=== PATIENT | female | born 1940 | race African-American/Black ===

== ENCOUNTER 2020-12-16 13:22 | Inpatient (IN) | payer MEDICARE, MEDICAID ==
[2020-12-16] MEDS ORDERED: Atropine Sulfate 1 mg/10 ml Syringe ONE (13:36)
[2020-12-16 14:12] LABS: #Eosinphils 0.1 10x3/uL (0.0-0.5); #Monocytes 0.6 10x3/uL (0.0-1.1); #Neutrophils 5.4 10x3/uL (1.5-8.4); %Basophils 0.3 % (0.0-2.0); %Eosinophils 0.9 % (0.0-6.0); %Lymphocytes 7.9 % (18.0-47.0); %Monocytes 8.7 % (0.0-10.0); %Neutrophils 81.6 % (40.0-75.0); Hemoglobin 9.6 g/dL (12.0-15.5); Mean Corpuscular HGB CONC 32.1 g/dL (32.0-36.0); Mean Corpuscular Hemoglobin 24.2 pg (27.0-33.0); Mean Corpuscular Volume 75.5 fl (81.6-98.3); Mean Platelet Volume 10.5 fl (7.4-10.4); Platelet Count 204 10x3/uL (150-450); Red Blood Cell (RBC) Count 3.96 10x6/uL (3.90-5.03); White Blood Cell (WBC) Count 6.6 10x3/uL (3.5-10.5)
[2020-12-16 14:27] LABS: ALT (SGPT) 47 U/L (8-55); AST (SGOT) 29 U/L (5-34); Albumin 3.5 g/dL (3.4-4.8); Alkaline Phosphatase 63 U/L (40-110); Anion Gap 17 mmol/L (10-20); BUN (Urea Nitrogen) 17 mg/dL (9.8-20.1); Bilirubin, Total 0.6 mg/dL (0.2-1.2); Calc. Creatinine Clearance 0 mL/min (70-130); Calcium 9.1 mg/dL (7.8-10.44); Carbon Dioxide 22 mmol/L (23-31); Chloride 103 mmol/L (98-107); Globulin 3.1 g/dL (2.4-3.5); Glucose 249 mg/dL (83-110); Protein, Total 6.6 g/dL (5.8-8.1); Sodium 137 mmol/L (136-145)
[2020-12-16] MEDS ORDERED: Dextrose 5% in Water 1,000 ML IV PRN (16:00)
[2020-12-16] MEDS ORDERED: Dextrose 50% Abboject 50 ML SYRINGE SLOW IVP PRN (16:00)
[2020-12-16] MEDS ORDERED: Ondansetron PF 4 MG/2 ML Vial IVP PRN (16:05)
[2020-12-16] MEDS ORDERED: HumaLOG 300 UNITS/3 ML VIAL SC PRN (16:05)
[2020-12-16] MEDS ORDERED: Acetaminophen 325 MG TAB PO PRN (16:05)
[2020-12-16] MEDS ORDERED: Insulin Regular 300 UNITS/3 ML VIAL SC PRN (16:05)
[2020-12-16] MEDS ORDERED: Latanoprost 0.005% Ophth Soln 2.5 ml Bottle EA EYE SCH (21:00)
[2020-12-16] MEDS: Gabapentin 300 MG CAP PO SCH (22:09)
[2020-12-16] MEDS: Apixaban 2.5 MG TAB PO SCH (22:09)
[2020-12-16] MEDS: TICAGRELOR 90 MG TABLET PO SCH (22:10)
[2020-12-16] MEDS: Latanoprost 0.005% Ophth Soln 2.5 ml Bottle EA EYE SCH (22:18)
[2020-12-17 04:44] VITALS: BMI 31.9
[2020-12-17 05:23] LABS: #Eosinphils 0.2 10x3/uL (0.0-0.5); #Monocytes 1.1 10x3/uL (0.0-1.1); #Neutrophils 5.5 10x3/uL (1.5-8.4); %Basophils 0.3 % (0.0-2.0); %Eosinophils 2.5 % (0.0-6.0); %Lymphocytes 10.9 % (18.0-47.0); %Monocytes 14.5 % (0.0-10.0); %Neutrophils 71.2 % (40.0-75.0); Hemoglobin 8.9 g/dL (12.0-15.5); Mean Corpuscular Hemoglobin 24.1 pg (27.0-33.0); Mean Corpuscular Volume 75.3 fl (81.6-98.3); Mean Platelet Volume 10.6 fl (7.4-10.4); Platelet Count 187 10x3/uL (150-450); RBC Distribution Width 18.1 % (11.5-14.5); Red Blood Cell (RBC) Count 3.69 10x6/uL (3.90-5.03); White Blood Cell (WBC) Count 7.7 10x3/uL (3.5-10.5)
[2020-12-17 05:31] LABS: Anion Gap 14 mmol/L (10-20); BUN (Urea Nitrogen) 15 mg/dL (9.8-20.1); Calc. Creatinine Clearance 60 mL/min (70-130); Calcium 9.3 mg/dL (7.8-10.44); Carbon Dioxide 26 mmol/L (23-31); Chloride 104 mmol/L (98-107); Glucose 112 mg/dL (83-110); Sodium 140 mmol/L (136-145)
[2020-12-17] MEDS: Levothyroxine Sodium 125 MCG TAB PO SCH (06:11)
[2020-12-17] MEDS: Pioglitazone HCl 45 MG TAB PO SCH (08:22)
[2020-12-17] MEDS: Gabapentin 300 MG CAP PO SCH ×2 (08:22→20:47)
[2020-12-17] MEDS: Aspirin 81 mg Enteric Coated Tablet PO SCH (08:22)
[2020-12-17] MEDS: Cholecalciferol 1,000 UNITS (25 MCG) TAB PO SCH (08:23)
[2020-12-17] MEDS: Atorvastatin Calcium 40 MG TAB PO SCH (08:23)
[2020-12-17] MEDS: Oxybutynin ER 5 MG TAB PO SCH (08:23)
[2020-12-17] MEDS: TICAGRELOR 90 MG TABLET PO SCH ×2 (08:23→20:49)
[2020-12-17] MEDS: Amlodipine 10 MG TAB PO SCH (08:23)
[2020-12-17] MEDS: Apixaban 2.5 MG TAB PO SCH ×2 (08:23→20:49)
[2020-12-17] MEDS: Furosemide 40 MG TAB PO SCH (08:23)
[2020-12-17] MEDS: Potassium Chloride 20 MEQ TAB PO SCH (08:23)
[2020-12-17] MEDS ORDERED: CYANOCOBALAMIN 250 MCG PO SCH (09:00)
[2020-12-17] MEDS: Mometasone/Formoterol 200/5 60 PUFF INH SCH ×2 (09:43→19:46)
[2020-12-17 15:16] LABS: SARS-CoV-2 PCR by NAA Not Detected (NotDetected)
[2020-12-17] MEDS: Latanoprost 0.005% Ophth Soln 2.5 ml Bottle EA EYE SCH (21:40)
[2020-12-18 04:38] LABS: Hemoglobin 9.4 g/dL (12.0-15.5); Mean Corpuscular HGB CONC 32.4 g/dL (32.0-36.0); Mean Corpuscular Hemoglobin 24.2 pg (27.0-33.0); Mean Corpuscular Volume 74.6 fl (81.6-98.3); Mean Platelet Volume 10.5 fl (7.4-10.4); Platelet Count 185 10x3/uL (150-450); RBC Distribution Width 17.8 % (11.5-14.5); Red Blood Cell (RBC) Count 3.89 10x6/uL (3.90-5.03); White Blood Cell (WBC) Count 6.5 10x3/uL (3.5-10.5)
[2020-12-18] MEDS: Levothyroxine Sodium 125 MCG TAB PO SCH (05:36)
[2020-12-18 07:41] LABS: Band 2 % (5-11); Eosinophils 5 % (0-10); Lymphocytes 14 % (21-51); Monocytes 13 % (0-10); Myelocyte 1 % (0-0)
[2020-12-18 07:44] LABS: Anisocytosis SLIGHT = 6-15 cells (100X) (0-5/hpf); Neutrophil 65 % (42-75)
[2020-12-18 07:45] LABS: Microcytosis SLIGHT = 6-15 cells (100X) (0-5/hpf); Polychromasia SLIGHT = 2-3 cells (100X) (0-2/hpf); Target Cells MODERATE= 6-15 cells (100X) (0-1/hpf)
[2020-12-18 07:46] LABS: Large Platelets MODERATE; Platelet Clumps SLIGHT; Platelet Morphology Comment Appears Adequate
[2020-12-18] MEDS: Mometasone/Formoterol 200/5 60 PUFF INH SCH ×2 (07:47→19:25)
[2020-12-18 07:48] LABS: MDiff Complete? YES; Manual Diff?? YES
[2020-12-18] MEDS: Oxybutynin ER 5 MG TAB PO SCH (08:58)
[2020-12-18] MEDS: Potassium Chloride 20 MEQ TAB PO SCH (08:58)
[2020-12-18] MEDS: TICAGRELOR 90 MG TABLET PO SCH ×2 (08:58→21:30)
[2020-12-18] MEDS: Gabapentin 300 MG CAP PO SCH ×2 (08:58→21:31)
[2020-12-18] MEDS: Furosemide 40 MG TAB PO SCH (08:58)
[2020-12-18] MEDS: Cholecalciferol 1,000 UNITS (25 MCG) TAB PO SCH (08:58)
[2020-12-18] MEDS: Amlodipine 10 MG TAB PO SCH (08:59)
[2020-12-18] MEDS: Atorvastatin Calcium 40 MG TAB PO SCH (08:59)
[2020-12-18] MEDS: Pioglitazone HCl 45 MG TAB PO SCH (08:59)
[2020-12-18] MEDS: Apixaban 2.5 MG TAB PO SCH ×2 (08:59→21:31)
[2020-12-18] MEDS: Aspirin 81 mg Enteric Coated Tablet PO SCH (08:59)
[2020-12-18] MEDS: Latanoprost 0.005% Ophth Soln 2.5 ml Bottle EA EYE SCH (21:32)
[2020-12-19] MEDS: Levothyroxine Sodium 125 MCG TAB PO SCH (05:08)
[2020-12-19] MEDS: Mometasone/Formoterol 200/5 60 PUFF INH SCH ×2 (07:35→20:25)
[2020-12-19] MEDS: Atorvastatin Calcium 40 MG TAB PO SCH (08:32)
[2020-12-19] MEDS: Aspirin 81 mg Enteric Coated Tablet PO SCH (08:32)
[2020-12-19] MEDS: TICAGRELOR 90 MG TABLET PO SCH ×2 (08:32→21:04)
[2020-12-19] MEDS: Furosemide 40 MG TAB PO SCH (08:33)
[2020-12-19] MEDS: Amlodipine 10 MG TAB PO SCH (08:33)
[2020-12-19] MEDS: Potassium Chloride 20 MEQ TAB PO SCH (08:33)
[2020-12-19] MEDS: Pioglitazone HCl 45 MG TAB PO SCH (08:33)
[2020-12-19] MEDS: Oxybutynin ER 5 MG TAB PO SCH (08:33)
[2020-12-19] MEDS: Apixaban 2.5 MG TAB PO SCH ×2 (08:33→21:04)
[2020-12-19] MEDS: Cholecalciferol 1,000 UNITS (25 MCG) TAB PO SCH (08:33)
[2020-12-19] MEDS: Gabapentin 300 MG CAP PO SCH ×2 (08:33→21:04)
[2020-12-20] MEDS: Latanoprost 0.005% Ophth Soln 2.5 ml Bottle EA EYE SCH ×2 (01:50→22:54)
[2020-12-20] MEDS: Levothyroxine Sodium 125 MCG TAB PO SCH (05:55)
[2020-12-20] MEDS: Nitroglycerin 0.4 MG TAB (25 Tab Bottle) SL PRN ×3 (06:20→06:44)
[2020-12-20 06:32] LABS: Anion Gap 15 mmol/L (10-20); BUN (Urea Nitrogen) 11 mg/dL (9.8-20.1); Calc. Creatinine Clearance 78 mL/min (70-130); Carbon Dioxide 29 mmol/L (23-31); Chloride 102 mmol/L (98-107); Hemoglobin 9.1 g/dL (12.0-15.5); Magnesium 1.4 mg/dL (1.6-2.6); Mean Corpuscular Hemoglobin 24.2 pg (27.0-33.0); Mean Corpuscular Volume 75.5 fl (81.6-98.3); Mean Platelet Volume 10.9 fl (7.4-10.4); Platelet Count 206 10x3/uL (150-450); Potassium 3.6 mmol/L (3.5-5.1); Red Blood Cell (RBC) Count 3.76 10x6/uL (3.90-5.03); Sodium 142 mmol/L (136-145); White Blood Cell (WBC) Count 7.2 10x3/uL (3.5-10.5)
[2020-12-20] MEDS ORDERED: Nitroglycerin 2% Ointment 1 INCH/1 GM Packet TOP SCH (07:00)
[2020-12-20] MEDS ORDERED: Morphine 2 MG/ML VIAL SLOW IVP SCH (07:00)
[2020-12-20 07:55] LABS: Band 1 % (5-11); Eosinophils 4 % (0-10); Lymphocytes 11 % (21-51); Monocytes 4 % (0-10); Neutrophil 77 % (42-75); Reactive Lymphocytes 2 % (0-10)
[2020-12-20 07:56] LABS: Anisocytosis SLIGHT = 6-15 cells (100X) (0-5/hpf); Hypochromia MODERATE=16-30 cells (100X) (0-5/hpf); Microcytosis MODERATE=15-30 cells (100X) (0-5/hpf)
[2020-12-20 07:57] LABS: Large Platelets SLIGHT; Platelet Clumps SLIGHT; Platelet Morphology Comment Appears Adequate
[2020-12-20 07:59] LABS: MDiff Complete? YES; Manual Diff?? YES
[2020-12-20 08:00] LABS: Target Cells MODERATE= 6-15 cells (100X) (0-1/hpf)
[2020-12-20] MEDS ORDERED: Magnesium 2 GM/50 ML 2 GM in Premix Bag 1 BAG IVPB SCH (08:00)
[2020-12-20 08:01] LABS: Polychromasia SLIGHT = 2-3 cells (100X) (0-2/hpf)
[2020-12-20] MEDS: Mometasone/Formoterol 200/5 60 PUFF INH SCH ×2 (08:58→20:35)
[2020-12-20] MEDS ORDERED: Carvedilol 6.25 MG TAB PO SCH (09:00)
[2020-12-20 09:08] LABS: Glucose 115 mg/dL (83-110)
[2020-12-20] MEDS: Apixaban 2.5 MG TAB PO SCH ×2 (09:52→22:44)
[2020-12-20] MEDS: Atorvastatin Calcium 40 MG TAB PO SCH (09:52)
[2020-12-20] MEDS: Gabapentin 300 MG CAP PO SCH ×2 (09:53→22:43)
[2020-12-20] MEDS: TICAGRELOR 90 MG TABLET PO SCH ×2 (09:53→22:45)
[2020-12-20] MEDS: Amlodipine 10 MG TAB PO SCH (09:53)
[2020-12-20] MEDS: Cholecalciferol 1,000 UNITS (25 MCG) TAB PO SCH (09:53)
[2020-12-20] MEDS: Furosemide 40 MG TAB PO SCH (09:53)
[2020-12-20] MEDS: Oxybutynin ER 5 MG TAB PO SCH (09:53)
[2020-12-20] MEDS: Potassium Chloride 20 MEQ TAB PO SCH (09:54)
[2020-12-20] MEDS: Pioglitazone HCl 45 MG TAB PO SCH (09:54)
[2020-12-20] MEDS: Aspirin 81 mg Enteric Coated Tablet PO SCH (09:55)
[2020-12-20] MEDS: Carvedilol 6.25 MG TAB PO SCH (17:24)
[2020-12-21] MEDS: Levothyroxine Sodium 125 MCG TAB PO SCH (06:32)
[2020-12-21] MEDS: Mometasone/Formoterol 200/5 60 PUFF INH SCH (07:18)
[2020-12-21] MEDS: Carvedilol 6.25 MG TAB PO SCH (08:27)
[2020-12-21] MEDS: Cholecalciferol 1,000 UNITS (25 MCG) TAB PO SCH (08:27)
[2020-12-21] MEDS: Atorvastatin Calcium 40 MG TAB PO SCH (08:27)
[2020-12-21] MEDS: Gabapentin 300 MG CAP PO SCH (08:27)
[2020-12-21] MEDS: Potassium Chloride 20 MEQ TAB PO SCH (08:28)
[2020-12-21] MEDS: Amlodipine 10 MG TAB PO SCH (08:28)
[2020-12-21] MEDS: Apixaban 2.5 MG TAB PO SCH (08:28)
[2020-12-21] MEDS: Furosemide 40 MG TAB PO SCH (08:28)
[2020-12-21] MEDS: Oxybutynin ER 5 MG TAB PO SCH (08:28)
[2020-12-21] MEDS: Aspirin 81 mg Enteric Coated Tablet PO SCH (08:28)
[2020-12-21] MEDS: TICAGRELOR 90 MG TABLET PO SCH (08:28)
[2020-12-21] MEDS: Pioglitazone HCl 45 MG TAB PO SCH (08:29)
[2020-12-21 12:10] VITALS: BP 129/73; TEMP 98.6
== END 2020-12-21 14:58 | DRG 309 ==
LOC: CSHERS 13:22 → OBSVTOIN 18:59 → INTOOBSV 18:59 → CSHTELE 18:59 → UNDOADMIN 18:59 → CSHTELE 12-17 19:08 → UNDODISIN 12-21 14:58
PROVIDERS: ADMIT Student in an Organized Health Care Education/Training Program; ATTEND Family Medicine
DX: R00.1 Bradycardia, unspecified (principal); I50.32 Chronic diastolic (congestive) heart failure; Z20.822 Contact with and (suspected) exposure to COVID-19; T46.2X5A Adverse effect of other antidysrhythmic drugs, initial encounter; I48.11 Longstanding persistent atrial fibrillation; I25.10 Atherosclerotic heart disease of native coronary artery without angina pectoris; I42.9 Cardiomyopathy, unspecified; J44.9 Chronic obstructive pulmonary disease, unspecified; E78.5 Hyperlipidemia, unspecified; Z95.5 Presence of coronary angioplasty implant and graft; I11.0 Hypertensive heart disease with heart failure; E11.9 Type 2 diabetes mellitus without complications; K21.9 Gastro-esophageal reflux disease without esophagitis; E03.9 Hypothyroidism, unspecified; Z87.891 Personal history of nicotine dependence; Z90.710 Acquired absence of both cervix and uterus; Z79.01 Long term (current) use of anticoagulants; Z79.84 Long term (current) use of oral hypoglycemic drugs; Z79.82 Long term (current) use of aspirin; Z79.890 Hormone replacement therapy; Z79.899 Other long term (current) drug therapy; Z48.812 Encounter for surgical aftercare following surgery on the circulatory system
CPT/HCPCS: 36415; 36416; 70450; 80048; 80053; 82962; 83735; 84484; 85025; 93005; 93010; 93798; 94664; 94760; G0378; J0461; J1815; J2270; J3475; U0003; U0005

== ENCOUNTER 2021-02-14 14:04 | Inpatient (IN) | payer MEDICARE, MEDICAID ==
[2021-02-14 14:50] LABS: #Eosinphils 0.1 10x3/uL (0.0-0.5); #Neutrophils 7.5 10x3/uL (1.5-8.4); %Basophils 0.3 % (0.0-2.0); %Eosinophils 0.6 % (0.0-6.0); %Lymphocytes 7.5 % (18.0-47.0); %Monocytes 10.8 % (0.0-10.0); %Neutrophils 79.5 % (40.0-75.0); Hemoglobin 9.3 g/dL (12.0-15.5); Mean Corpuscular HGB CONC 31.8 g/dL (32.0-36.0); Mean Corpuscular Hemoglobin 22.2 pg (27.0-33.0); Mean Corpuscular Volume 69.9 fl (81.6-98.3); Platelet Count 160 10x3/uL (150-450); RBC Distribution Width 21.9 % (11.5-14.5); Red Blood Cell (RBC) Count 4.18 10x6/uL (3.90-5.03); White Blood Cell (WBC) Count 9.5 10x3/uL (3.5-10.5)
[2021-02-14] MEDS ORDERED: Diltiazem 125 MG/25 ML ONE (14:59)
[2021-02-14 15:00] LABS: INR-International Normal Ratio 1.7; PTT 29.1 sec (22.0-33.0); Prothrombin Time 18.5 sec (9.5-12.1)
[2021-02-14 15:05] LABS: ALT (SGPT) 67 U/L (8-55); AST (SGOT) 106 U/L (5-34); Albumin 3.9 g/dL (3.4-4.8); Alkaline Phosphatase 109 U/L (40-110); Anion Gap 22 mmol/L (10-20); BUN (Urea Nitrogen) 33 mg/dL (9.8-20.1); Bilirubin, Total 1.4 mg/dL (0.2-1.2); CK (CPK) 61 U/L (29-168); Calc. Creatinine Clearance 0 mL/min (70-130); Calcium 9.3 mg/dL (7.8-10.44); Carbon Dioxide 20 mmol/L (23-31); Chloride 99 mmol/L (98-107); Globulin 4.2 g/dL (2.4-3.5); Glucose 200 mg/dL (83-110); Potassium 4.7 mmol/L (3.5-5.1); Protein, Total 8.1 g/dL (5.8-8.1); Sodium 136 mmol/L (136-145)
[2021-02-14 16:05] LABS: Giant Platelets SLIGHT; Large Platelets SLIGHT; Platelet Morphology Comment Appears Adequate
[2021-02-14 16:07] LABS: Anisocytosis SLIGHT = 6-15 cells (100X) (0-5/hpf); Elliptocytes SLIGHT = 2-5 cells (100X) (0-1/hpf); Hypochromia SLIGHT = 6-15 cells (100X) (0-5/hpf); Macrocytosis SLIGHT = 6-15 cells (100X) (0-5/hpf); Microcytosis SLIGHT = 6-15 cells (100X) (0-5/hpf); Polychromasia SLIGHT = 2-3 cells (100X) (0-2/hpf); Schistocytes SLIGHT = 2-5 cells (100X) (0-1/hpf); Target Cells SLIGHT = 2-5 cells (100X) (0-1/hpf)
[2021-02-14 16:42] LABS: SARS-CoV-2 NAA Rapid Test Not Detected (NotDetected)
[2021-02-14 17:52] LABS: Troponin I Less than 0.010 ng/mL (< 0.028)
[2021-02-14] MEDS ORDERED: Furosemide 40 MG/4 ML VIAL ONE (19:17)
[2021-02-14] MEDS ORDERED: Dextrose 50% Abboject 50 ML SYRINGE SLOW IVP PRN (19:18)
[2021-02-14] MEDS ORDERED: Guaifenesin DM 100-10/5 ML UDCUP PO PRN (19:18)
[2021-02-14] MEDS ORDERED: Senokot S 8.6-50 MG TAB PO PRN (19:18)
[2021-02-14] MEDS ORDERED: Dextrose 5% in Water 1,000 ML IV PRN (19:18)
[2021-02-14] MEDS ORDERED: Ondansetron PF 4 MG/2 ML Vial IVP PRN (19:18)
[2021-02-14] MEDS ORDERED: Calcium Carbonate 500 MG ChewTAB PO PRN (19:18)
[2021-02-14] MEDS ORDERED: Acetaminophen 325 MG TAB PO PRN (19:18)
[2021-02-14 21:03] LABS: Troponin I 0.011 ng/mL (< 0.028)
[2021-02-14 21:55] VITALS: BMI 33.0
[2021-02-14] MEDS ORDERED: methylPREDNISolone Sod Succ/PF 125 MG/2 ML VIAL IVP SCH (22:00)
[2021-02-14] MEDS ORDERED: Digoxin 0.5 MG/2 ML AMP SLOW IVP SCH (22:00)
[2021-02-14] MEDS ORDERED: Apixaban 2.5 MG TAB PO SCH (22:15)
[2021-02-14] MEDS ORDERED: TICAGRELOR 90 MG TABLET PO SCH (22:15)
[2021-02-14] MEDS ORDERED: Famotidine 20 MG TAB PO SCH (22:15)
[2021-02-14] MEDS: HumaLOG 300 UNITS/3 ML VIAL SC PRN (23:40)
[2021-02-15] MEDS: diphenhydrAMINE 25 MG CAP PO PRN ×3 (00:43→11:23)
[2021-02-15] MEDS: Diltiazem 125 MG, Admixture Fee 1 EACH in Sodium Chloride 0.9% 100 ML IVPB SCH ×2 (01:04→10:47)
[2021-02-15] MEDS: Levothyroxine Sodium 125 MCG TAB PO SCH (05:24)
[2021-02-15] MEDS ORDERED: Furosemide 40 MG/4 ML VIAL SLOW IVP SCH ×2 (06:00→14:00)
[2021-02-15] MEDS: HumaLOG 300 UNITS/3 ML VIAL SC PRN (06:01)
[2021-02-15] MEDS: Mometasone/Formoterol 200/5 60 PUFF INH SCH (07:00)
[2021-02-15] MEDS: Fish Oil 1,000 MG CAP PO SCH (08:05)
[2021-02-15] MEDS: Oxybutynin ER 5 MG TAB PO SCH (08:05)
[2021-02-15] MEDS: Famotidine 20 MG TAB PO SCH ×2 (08:06→20:17)
[2021-02-15] MEDS: Aspirin 81 mg Enteric Coated Tablet PO SCH (08:06)
[2021-02-15] MEDS: Cyanocobalamin (Vitamin B-12) 1,000 MCG TAB PO SCH (08:06)
[2021-02-15] MEDS: Multivitamin W/ Minerals 1 TAB PO SCH (08:06)
[2021-02-15] MEDS: Cholecalciferol 1,000 UNITS (25 MCG) TAB PO SCH (08:06)
[2021-02-15] MEDS: Alogliptin 25 MG TAB PO SCH (08:08)
[2021-02-15] MEDS: Apixaban 2.5 MG TAB PO SCH ×2 (08:14→20:17)
[2021-02-15] MEDS: TICAGRELOR 90 MG TABLET PO SCH ×2 (08:14→20:17)
[2021-02-15 08:23] LABS: Anion Gap 28 mmol/L (10-20); BUN (Urea Nitrogen) 46 mg/dL (9.8-20.1); Calc. Creatinine Clearance 30 mL/min (70-130); Calcium 9.2 mg/dL (7.8-10.44); Carbon Dioxide 12 mmol/L (23-31); Chloride 98 mmol/L (98-107); Glucose 166 mg/dL (83-110); Iron 31 ug/dL (50-170); Iron Binding Capacity, Total 363 mcg/dL (265-497); Magnesium 1.9 mg/dL (1.6-2.6); Potassium 5.4 mmol/L (3.5-5.1); Sodium 133 mmol/L (136-145)
[2021-02-15] MEDS: Stress 600 With Zinc 1 TAB PO SCH (08:59)
[2021-02-15] MEDS ORDERED: CYANOCOBALAMIN 250 MCG PO SCH (09:00)
[2021-02-15] MEDS ORDERED: FISH OIL PO SCH (09:00)
[2021-02-15] MEDS ORDERED: OMEGA PO SCH (09:00)
[2021-02-15] MEDS ORDERED: EPA PO SCH (09:00)
[2021-02-15] MEDS ORDERED: DHA PO SCH (09:00)
[2021-02-15] MEDS ORDERED: Atorvastatin Calcium 40 MG TAB PO SCH (09:00)
[2021-02-15] MEDS ORDERED: [UNRECOGNIZED DRUG - OTHER] PO SCH (09:00)
[2021-02-15] MEDS ORDERED: Carvedilol 3.125 MG TAB PO SCH (10:00)
[2021-02-15 14:26] LABS: Bilirubin 1+ (Negative); Blood, Urine 250 (Negative); Clarity Cloudy (Clear); Glucose, Urine (Dipstick) Normal (Negative); Ketone, Urine 5 mg/dL (Negative); Leukocyte 100 (Negative); Nitrite Positive (Negative); Protein, Urine (Dipstick) 100 mg/dl (Neg-Trace); Specific Gravity, Urine 1.025 (1.002-1.036)
[2021-02-15 14:36] LABS: RBC/HPF Greater than 50 HPF (0-3)
[2021-02-15 14:38] LABS: Squamous Epithelial 0-3 HPF (0-3); Transitional Epithelial 0-3 HPF (None Seen)
[2021-02-15 14:39] LABS: Bacteria/HPF 2+ HPF (None Seen); Mucous/LPF 1+ LPF (<2+); Oval Fat Bodies/HPF Rare HPF (None Seen); Renal Epithelial 0-3 HPF (None Seen)
[2021-02-15 14:40] LABS: Red Blood Cell Cast 0-3 LPF (None Seen)
[2021-02-15 14:41] LABS: Calcium Oxalate Crystals 1+ HPF (None Seen)
[2021-02-15 18:34] LABS: Hep B Surf Ag Non-Reactive S/CO (NonReactive)
[2021-02-15 18:40] LABS: HBSAg Index 0.48 S/CO (0-0.99)
[2021-02-15] MEDS: Carvedilol 3.125 MG TAB PO SCH (19:47)
[2021-02-15 19:58] LABS: Lactic Acid 9.3 mmol/L (0.5-2.2)
[2021-02-15] MEDS: cefTRIAXone\\ROCEPHIN 2 GM in Sodium Chloride 0.9% 100 ML IVPB SCH (20:29)
[2021-02-15] MEDS: Latanoprost 0.005% Ophth Soln 2.5 ml Bottle EA EYE SCH (20:29)
[2021-02-15 23:48] LABS: HBSAB Concentration Less than 8.00 mIU/mL; Hep B Core Total Ab Non-Reactive (NonReactive); Hep B Core Total Index 0.13 S/CO (0-0.79); Hep B Surf AB Non-Reactive (NonReactive); Hep C IgG Ab Non-Reactive (NonReactive); Hep C Index 0.12 S/CO (0-0.79)
[2021-02-16 04:34] LABS: Anion Gap 22 mmol/L (10-20); BUN (Urea Nitrogen) 45 mg/dL (9.8-20.1); Calc. Creatinine Clearance 31 mL/min (70-130); Carbon Dioxide 20 mmol/L (23-31); Chloride 96 mmol/L (98-107); Glucose 168 mg/dL (83-110); Potassium 4.2 mmol/L (3.5-5.1); Sodium 134 mmol/L (136-145)
[2021-02-16] MEDS: Levothyroxine Sodium 125 MCG TAB PO SCH (05:06)
[2021-02-16] MEDS: Mometasone/Formoterol 200/5 60 PUFF INH SCH ×2 (06:35→19:13)
[2021-02-16] MEDS: HumaLOG 300 UNITS/3 ML VIAL SC PRN ×3 (06:42→21:11)
[2021-02-16 06:46] LABS: #Monocytes 1.1 10x3/uL (0.0-1.1); #Neutrophils 11.1 10x3/uL (1.5-8.4); %Basophils 0.2 % (0.0-2.0); %Lymphocytes 4.4 % (18.0-47.0); %Monocytes 8.7 % (0.0-10.0); %Neutrophils 85.5 % (40.0-75.0); Hemoglobin 8.3 g/dL (12.0-15.5); Mean Corpuscular HGB CONC 32.9 g/dL (32.0-36.0); Mean Corpuscular Hemoglobin 22.9 pg (27.0-33.0); Mean Corpuscular Volume 69.6 fl (81.6-98.3); Platelet Count 136 10x3/uL (150-450); RBC Distribution Width 21.7 % (11.5-14.5); Red Blood Cell (RBC) Count 3.62 10x6/uL (3.90-5.03)
[2021-02-16 06:47] LABS: Hypochromia SLIGHT = 6-15 cells (100X) (0-5/hpf); Microcytosis SLIGHT = 6-15 cells (100X) (0-5/hpf); Platelet Morphology Comment Appears Adequate; Polychromasia SLIGHT = 2-3 cells (100X) (0-2/hpf); RBC Morphology Normal
[2021-02-16] MEDS: Diltiazem 125 MG, Admixture Fee 1 EACH in Sodium Chloride 0.9% 100 ML IVPB SCH (10:00)
[2021-02-16] MEDS: Famotidine 20 MG TAB PO SCH ×2 (10:04→20:49)
[2021-02-16] MEDS: Fish Oil 1,000 MG CAP PO SCH (10:04)
[2021-02-16] MEDS: Cyanocobalamin (Vitamin B-12) 1,000 MCG TAB PO SCH (10:04)
[2021-02-16] MEDS: Oxybutynin ER 5 MG TAB PO SCH (10:05)
[2021-02-16] MEDS: Aspirin 81 mg Enteric Coated Tablet PO SCH (10:05)
[2021-02-16] MEDS: Stress 600 With Zinc 1 TAB PO SCH (10:05)
[2021-02-16] MEDS: TICAGRELOR 90 MG TABLET PO SCH ×2 (10:05→20:50)
[2021-02-16] MEDS: Cholecalciferol 1,000 UNITS (25 MCG) TAB PO SCH (10:06)
[2021-02-16] MEDS: Alogliptin 25 MG TAB PO SCH (10:06)
[2021-02-16] MEDS: Apixaban 2.5 MG TAB PO SCH ×2 (10:06→20:50)
[2021-02-16] MEDS: Multivitamin W/ Minerals 1 TAB PO SCH (10:07)
[2021-02-16] MEDS: Carvedilol 3.125 MG TAB PO SCH ×2 (10:07→16:39)
[2021-02-16 11:10] LABS: ALT (SGPT) 729 U/L (8-55); AST (SGOT) 1605 U/L (5-34); Albumin 3.5 g/dL (3.4-4.8); Alkaline Phosphatase 195 U/L (40-110); Bilirubin, Direct 1.1 mg/dL (0.1-0.3); Bilirubin, Total 1.6 mg/dL (0.2-1.2); Protein, Total 7.4 g/dL (5.8-8.1)
[2021-02-16] MEDS ORDERED: Diltiazem HCl SR 60 mg Capsule PO SCH (13:30)
[2021-02-16] MEDS: cefTRIAXone\\ROCEPHIN 2 GM in Sodium Chloride 0.9% 100 ML IVPB SCH (20:51)
[2021-02-16] MEDS: Latanoprost 0.005% Ophth Soln 2.5 ml Bottle EA EYE SCH (22:35)
[2021-02-17 03:47] LABS: #Monocytes 1.5 10x3/uL (0.0-1.1); #Neutrophils 12.8 10x3/uL (1.5-8.4); %Basophils 0.1 % (0.0-2.0); %Lymphocytes 0.7 % (18.0-47.0); %Monocytes 10.2 % (0.0-10.0); %Neutrophils 87.3 % (40.0-75.0); Hemoglobin 7.3 g/dL (12.0-15.5); Mean Corpuscular HGB CONC 33.3 g/dL (32.0-36.0); Mean Corpuscular Hemoglobin 22.7 pg (27.0-33.0); Mean Corpuscular Volume 68.2 fl (81.6-98.3); Platelet Count 130 10x3/uL (150-450); RBC Distribution Width 21.4 % (11.5-14.5); Red Blood Cell (RBC) Count 3.21 10x6/uL (3.90-5.03); White Blood Cell (WBC) Count 14.6 10x3/uL (3.5-10.5)
[2021-02-17 03:49] LABS: Anion Gap 13 mmol/L (10-20); BUN (Urea Nitrogen) 54 mg/dL (9.8-20.1); CRP (Inflammatory) 2.79 mg/dL (= or < 0.5); Calc. Creatinine Clearance 38 mL/min (70-130); Calcium 8.4 mg/dL (7.8-10.44); Carbon Dioxide 27 mmol/L (23-31); Chloride 98 mmol/L (98-107); Glucose 238 mg/dL (83-110); Potassium 3.9 mmol/L (3.5-5.1); Sodium 134 mmol/L (136-145)
[2021-02-17 04:40] LABS: Hypochromia MARKED = >30 cells (100X) (0-5/hpf); Platelet Morphology Comment Appears Decreased
[2021-02-17] MEDS: Levothyroxine Sodium 125 MCG TAB PO SCH (05:51)
[2021-02-17] MEDS: HumaLOG 300 UNITS/3 ML VIAL SC PRN ×3 (05:56→16:23)
[2021-02-17] MEDS: Mometasone/Formoterol 200/5 60 PUFF INH SCH ×3 (06:00→19:00)
[2021-02-17] MEDS: Oxybutynin ER 5 MG TAB PO SCH (08:33)
[2021-02-17] MEDS: Fish Oil 1,000 MG CAP PO SCH (08:33)
[2021-02-17] MEDS: TICAGRELOR 90 MG TABLET PO SCH ×2 (08:33→20:29)
[2021-02-17] MEDS: Aspirin 81 mg Enteric Coated Tablet PO SCH (08:33)
[2021-02-17] MEDS: Apixaban 2.5 MG TAB PO SCH ×2 (08:33→20:29)
[2021-02-17] MEDS: Carvedilol 3.125 MG TAB PO SCH ×2 (08:33→18:17)
[2021-02-17] MEDS: Cyanocobalamin (Vitamin B-12) 1,000 MCG TAB PO SCH (08:34)
[2021-02-17] MEDS: Alogliptin 25 MG TAB PO SCH (08:34)
[2021-02-17] MEDS: Multivitamin W/ Minerals 1 TAB PO SCH (08:34)
[2021-02-17] MEDS: Famotidine 20 MG TAB PO SCH ×2 (08:35→20:29)
[2021-02-17] MEDS: Stress 600 With Zinc 1 TAB PO SCH (08:35)
[2021-02-17] MEDS: Cholecalciferol 1,000 UNITS (25 MCG) TAB PO SCH (08:35)
[2021-02-17] MEDS ORDERED: Furosemide 40 MG/4 ML VIAL SLOW IVP SCH (09:00)
[2021-02-17] MEDS: cefTRIAXone\\ROCEPHIN 2 GM in Sodium Chloride 0.9% 100 ML IVPB SCH (20:49)
[2021-02-17] MEDS: Latanoprost 0.005% Ophth Soln 2.5 ml Bottle EA EYE SCH (23:35)
[2021-02-18] MEDS: Levothyroxine Sodium 125 MCG TAB PO SCH (05:45)
[2021-02-18 06:43] LABS: Anion Gap 13 mmol/L (10-20); BUN (Urea Nitrogen) 32 mg/dL (9.8-20.1); Calc. Creatinine Clearance 64 mL/min (70-130); Calcium 8.3 mg/dL (7.8-10.44); Carbon Dioxide 32 mmol/L (23-31); Chloride 97 mmol/L (98-107); Glucose 199 mg/dL (83-110); Potassium 3.1 mmol/L (3.5-5.1); Sodium 139 mmol/L (136-145)
[2021-02-18] MEDS: Mometasone/Formoterol 200/5 60 PUFF INH SCH ×2 (07:00→19:40)
[2021-02-18 08:44] LABS: #Eosinphils 0.2 10x3/uL (0.0-0.5); #Monocytes 1.1 10x3/uL (0.0-1.1); #Neutrophils 9.3 10x3/uL (1.5-8.4); %Basophils 0.3 % (0.0-2.0); %Eosinophils 1.7 % (0.0-6.0); %Lymphocytes 5.6 % (18.0-47.0); %Monocytes 9.2 % (0.0-10.0); %Neutrophils 81.2 % (40.0-75.0); Hemoglobin 9.2 g/dL (12.0-15.5); Mean Corpuscular HGB CONC 33.6 g/dL (32.0-36.0); Mean Corpuscular Hemoglobin 24.1 pg (27.0-33.0); Mean Corpuscular Volume 71.7 fl (81.6-98.3); Platelet Count 126 10x3/uL (150-450); RBC Distribution Width 22.6 % (11.5-14.5); Red Blood Cell (RBC) Count 3.82 10x6/uL (3.90-5.03); White Blood Cell (WBC) Count 11.5 10x3/uL (3.5-10.5)
[2021-02-18] MEDS: Alogliptin 25 MG TAB PO SCH (09:22)
[2021-02-18] MEDS: Aspirin 81 mg Enteric Coated Tablet PO SCH (09:22)
[2021-02-18] MEDS: Apixaban 2.5 MG TAB PO SCH ×2 (09:22→20:38)
[2021-02-18] MEDS: Famotidine 20 MG TAB PO SCH ×2 (09:23→20:38)
[2021-02-18] MEDS: Cyanocobalamin (Vitamin B-12) 1,000 MCG TAB PO SCH (09:23)
[2021-02-18] MEDS: Carvedilol 3.125 MG TAB PO SCH ×2 (09:23→17:47)
[2021-02-18] MEDS: Cholecalciferol 1,000 UNITS (25 MCG) TAB PO SCH (09:23)
[2021-02-18] MEDS: Fish Oil 1,000 MG CAP PO SCH (09:23)
[2021-02-18] MEDS: Multivitamin W/ Minerals 1 TAB PO SCH ×2 (09:28→13:00)
[2021-02-18] MEDS: Potassium Chloride 20 MEQ TAB PO SCH ×2 (09:28→20:38)
[2021-02-18] MEDS: Oxybutynin ER 5 MG TAB PO SCH (09:28)
[2021-02-18] MEDS: Furosemide 20 MG TAB PO SCH ×2 (09:28→14:25)
[2021-02-18] MEDS: TICAGRELOR 90 MG TABLET PO SCH ×2 (09:31→20:39)
[2021-02-18] MEDS: Stress 600 With Zinc 1 TAB PO SCH (09:31)
[2021-02-18 13:30] LABS: Anisocytosis SLIGHT = 6-15 cells (100X) (0-5/hpf); Macrocytosis SLIGHT = 6-15 cells (100X) (0-5/hpf); Microcytosis SLIGHT = 6-15 cells (100X) (0-5/hpf); Poikilocytosis SLIGHT = 6-15 cells (100X) (0-5/hpf); Polychromasia SLIGHT = 2-3 cells (100X) (0-2/hpf)
[2021-02-18 13:31] LABS: Platelet Morphology Comment Appears Decreased; Target Cells SLIGHT = 2-5 cells (100X) (0-1/hpf)
[2021-02-18] MEDS: HumaLOG 300 UNITS/3 ML VIAL SC PRN ×2 (14:25→17:54)
[2021-02-18] MEDS: Latanoprost 0.005% Ophth Soln 2.5 ml Bottle EA EYE SCH (20:39)
[2021-02-18] MEDS: cefTRIAXone\\ROCEPHIN 2 GM in Sodium Chloride 0.9% 100 ML IVPB SCH (20:44)
[2021-02-19] MEDS: HumaLOG 300 UNITS/3 ML VIAL SC PRN ×3 (06:00→18:19)
[2021-02-19] MEDS: Levothyroxine Sodium 125 MCG TAB PO SCH (06:42)
[2021-02-19] MEDS: Mometasone/Formoterol 200/5 60 PUFF INH SCH ×2 (07:05→18:52)
[2021-02-19 08:59] LABS: Anion Gap 10 mmol/L (10-20); BUN (Urea Nitrogen) 13 mg/dL (9.8-20.1); Calc. Creatinine Clearance 90 mL/min (70-130); Calcium 7.8 mg/dL (7.8-10.44); Carbon Dioxide 33 mmol/L (23-31); Chloride 96 mmol/L (98-107); Glucose 165 mg/dL (83-110); Magnesium 1.5 mg/dL (1.6-2.6); Potassium 3.1 mmol/L (3.5-5.1); Sodium 136 mmol/L (136-145)
[2021-02-19 09:07] LABS: Phosphorus 1.4 mg/dL (2.3-4.7)
[2021-02-19] MEDS: Oxybutynin ER 5 MG TAB PO SCH (09:51)
[2021-02-19] MEDS: Apixaban 2.5 MG TAB PO SCH ×2 (09:51→20:46)
[2021-02-19] MEDS: Fish Oil 1,000 MG CAP PO SCH (09:51)
[2021-02-19] MEDS: TICAGRELOR 90 MG TABLET PO SCH ×2 (09:51→20:46)
[2021-02-19] MEDS: Cholecalciferol 1,000 UNITS (25 MCG) TAB PO SCH (09:51)
[2021-02-19] MEDS: Cyanocobalamin (Vitamin B-12) 1,000 MCG TAB PO SCH (09:51)
[2021-02-19] MEDS: Famotidine 20 MG TAB PO SCH ×2 (09:51→20:46)
[2021-02-19] MEDS: Alogliptin 25 MG TAB PO SCH (09:51)
[2021-02-19] MEDS: Stress 600 With Zinc 1 TAB PO SCH (09:51)
[2021-02-19] MEDS: Carvedilol 3.125 MG TAB PO SCH ×2 (09:51→16:30)
[2021-02-19] MEDS: Aspirin 81 mg Enteric Coated Tablet PO SCH (09:51)
[2021-02-19 09:53] LABS: #Eosinphils 0.2 10x3/uL (0.0-0.5); #Monocytes 0.9 10x3/uL (0.0-1.1); #Neutrophils 6.8 10x3/uL (1.5-8.4); %Basophils 0.1 % (0.0-2.0); %Eosinophils 2.4 % (0.0-6.0); Hemoglobin 9.7 g/dL (12.0-15.5); Mean Corpuscular HGB CONC 32.8 g/dL (32.0-36.0); Mean Corpuscular Hemoglobin 24.1 pg (27.0-33.0); Mean Corpuscular Volume 73.6 fl (81.6-98.3); Platelet Count 125 10x3/uL (150-450); RBC Distribution Width 23.8 % (11.5-14.5); Red Blood Cell (RBC) Count 4.02 10x6/uL (3.90-5.03); White Blood Cell (WBC) Count 8.7 10x3/uL (3.5-10.5)
[2021-02-19 09:59] LABS: Anion Gap 11 mmol/L (10-20); BUN (Urea Nitrogen) 13 mg/dL (9.8-20.1); Calc. Creatinine Clearance 85 mL/min (70-130); Carbon Dioxide 32 mmol/L (23-31); Chloride 96 mmol/L (98-107); Glucose 178 mg/dL (83-110); Magnesium 1.5 mg/dL (1.6-2.6); Potassium 3.1 mmol/L (3.5-5.1); Sodium 136 mmol/L (136-145)
[2021-02-19 10:00] LABS: Phosphorus 1.4 mg/dL (2.3-4.7)
[2021-02-19] MEDS ORDERED: Potassium Chloride 20 MEQ TAB PO SCH ×2 (10:00→11:45)
[2021-02-19] MEDS ORDERED: PHOS-NAK 1 PKT PACK PO SCH (10:00)
[2021-02-19] MEDS ORDERED: Magnesium 2 GM/50 ML 2 GM in Premix Bag 1 BAG IVPB SCH (10:00)
[2021-02-19 11:42] LABS: ALT (SGPT) 1013 U/L (8-55); AST (SGOT) 862 U/L (5-34); Albumin 2.9 g/dL (3.4-4.8); Alkaline Phosphatase 167 U/L (40-110); Bilirubin, Direct 0.6 mg/dL (0.1-0.3); Bilirubin, Total 1.1 mg/dL (0.2-1.2); Protein, Total 6.3 g/dL (5.8-8.1)
[2021-02-19] MEDS ORDERED: Potassium Phosphate 30 MMOL in Sodium Chloride 0.9% 500 ML IVPB SCH (11:45)
[2021-02-19] MEDS ORDERED: Potassium Chloride 20 MEQ in Premix Bag 1 BAG IVPB SCH (11:45)
[2021-02-19 15:29] LABS: Anion Gap 11 mmol/L (10-20); BUN (Urea Nitrogen) 13 mg/dL (9.8-20.1); Calc. Creatinine Clearance 80 mL/min (70-130); Calcium 7.8 mg/dL (7.8-10.44); Carbon Dioxide 32 mmol/L (23-31); Chloride 96 mmol/L (98-107); Glucose 187 mg/dL (83-110); Potassium 3.7 mmol/L (3.5-5.1); Sodium 135 mmol/L (136-145)
[2021-02-19] MEDS: cefTRIAXone\\ROCEPHIN 2 GM in Sodium Chloride 0.9% 100 ML IVPB SCH (20:45)
[2021-02-19] MEDS: Latanoprost 0.005% Ophth Soln 2.5 ml Bottle EA EYE SCH (20:47)
[2021-02-20 05:14] LABS: Anion Gap 10 mmol/L (10-20); BUN (Urea Nitrogen) 11 mg/dL (9.8-20.1); Calc. Creatinine Clearance 94 mL/min (70-130); Calcium 7.9 mg/dL (7.8-10.44); Carbon Dioxide 30 mmol/L (23-31); Chloride 100 mmol/L (98-107); Glucose 112 mg/dL (83-110); Magnesium 1.9 mg/dL (1.6-2.6); Potassium 3.4 mmol/L (3.5-5.1); Sodium 137 mmol/L (136-145)
[2021-02-20 05:27] LABS: Phosphorus 2.2 mg/dL (2.3-4.7)
[2021-02-20] MEDS: Levothyroxine Sodium 125 MCG TAB PO SCH (06:33)
[2021-02-20] MEDS: Mometasone/Formoterol 200/5 60 PUFF INH SCH ×2 (07:05→19:41)
[2021-02-20] MEDS: Fish Oil 1,000 MG CAP PO SCH (08:12)
[2021-02-20] MEDS: Carvedilol 3.125 MG TAB PO SCH ×2 (08:12→17:31)
[2021-02-20] MEDS: Aspirin 81 mg Enteric Coated Tablet PO SCH (08:12)
[2021-02-20] MEDS: TICAGRELOR 90 MG TABLET PO SCH ×2 (08:12→21:01)
[2021-02-20] MEDS: Oxybutynin ER 5 MG TAB PO SCH (08:12)
[2021-02-20] MEDS: Apixaban 2.5 MG TAB PO SCH ×2 (08:12→20:59)
[2021-02-20] MEDS: Alogliptin 25 MG TAB PO SCH (08:12)
[2021-02-20] MEDS: Famotidine 20 MG TAB PO SCH ×3 (08:12→21:00)
[2021-02-20] MEDS: Stress 600 With Zinc 1 TAB PO SCH (08:13)
[2021-02-20] MEDS: Cholecalciferol 1,000 UNITS (25 MCG) TAB PO SCH (08:13)
[2021-02-20] MEDS: Cyanocobalamin (Vitamin B-12) 1,000 MCG TAB PO SCH (08:13)
[2021-02-20 09:47] LABS: ALT (SGPT) 665 U/L (8-55); AST (SGOT) 341 U/L (5-34); Albumin 2.9 g/dL (3.4-4.8); Alkaline Phosphatase 166 U/L (40-110); Anion Gap 13 mmol/L (10-20); BUN (Urea Nitrogen) 10 mg/dL (9.8-20.1); Bilirubin, Direct 0.5 mg/dL (0.1-0.3); Bilirubin, Total 1.1 mg/dL (0.2-1.2); Calc. Creatinine Clearance 90 mL/min (70-130); Calcium 8.4 mg/dL (7.8-10.44); Carbon Dioxide 28 mmol/L (23-31); Chloride 99 mmol/L (98-107); Glucose 166 mg/dL (83-110); Magnesium 1.8 mg/dL (1.6-2.6); Phosphorus 2.1 mg/dL (2.3-4.7); Potassium 3.8 mmol/L (3.5-5.1); Protein, Total 6.7 g/dL (5.8-8.1); Sodium 136 mmol/L (136-145)
[2021-02-20] MEDS ORDERED: Potassium Phosphate 30 MMOL in Sodium Chloride 0.9% 500 ML IVPB SCH (10:00)
[2021-02-20] MEDS ORDERED: PHOS-NAK 1 PKT PACK PO SCH (11:00)
[2021-02-20] MEDS: HumaLOG 300 UNITS/3 ML VIAL SC PRN ×2 (11:52→17:31)
[2021-02-20 13:40] LABS: Bilirubin Neg (Negative); Blood, Urine 10 (Negative); Clarity Clear (Clear); Glucose, Urine (Dipstick) >=1000 mg/dL (Negative); Ketone, Urine Negative (Negative); Leukocyte Negative (Negative); Nitrite Negative (Negative); Protein, Urine (Dipstick) 15 mg/dl (Neg-Trace)
[2021-02-20 13:46] LABS: Bacteria/HPF None Seen HPF (None Seen); Squamous Epithelial 0-3 HPF (0-3); WBC/HPF 0-3 HPF (0-3)
[2021-02-20] MEDS: cefTRIAXone\\ROCEPHIN 2 GM in Sodium Chloride 0.9% 100 ML IVPB SCH (20:55)
[2021-02-20] MEDS: Latanoprost 0.005% Ophth Soln 2.5 ml Bottle EA EYE SCH (21:01)
[2021-02-21] MEDS: Levothyroxine Sodium 125 MCG TAB PO SCH (06:36)
[2021-02-21] MEDS: Mometasone/Formoterol 200/5 60 PUFF INH SCH (07:25)
[2021-02-21] MEDS ORDERED: Magnesium Oxide 400 MG TAB PO SCH (09:00)
[2021-02-21 09:51] LABS: Anion Gap 12 mmol/L (10-20); BUN (Urea Nitrogen) 7 mg/dL (9.8-20.1); Calc. Creatinine Clearance 94 mL/min (70-130); Calcium 7.9 mg/dL (7.8-10.44); Carbon Dioxide 24 mmol/L (23-31); Chloride 104 mmol/L (98-107); Glucose 150 mg/dL (83-110); Potassium 4.3 mmol/L (3.5-5.1); Sodium 136 mmol/L (136-145)
[2021-02-21] MEDS: Carvedilol 3.125 MG TAB PO SCH (09:58)
[2021-02-21] MEDS: Fish Oil 1,000 MG CAP PO SCH (09:58)
[2021-02-21] MEDS: Stress 600 With Zinc 1 TAB PO SCH (09:58)
[2021-02-21] MEDS: Apixaban 2.5 MG TAB PO SCH (09:59)
[2021-02-21] MEDS: Cyanocobalamin (Vitamin B-12) 1,000 MCG TAB PO SCH (10:00)
[2021-02-21] MEDS: TICAGRELOR 90 MG TABLET PO SCH (10:00)
[2021-02-21] MEDS: Alogliptin 25 MG TAB PO SCH (10:00)
[2021-02-21] MEDS: Cholecalciferol 1,000 UNITS (25 MCG) TAB PO SCH (10:00)
[2021-02-21] MEDS: Oxybutynin ER 5 MG TAB PO SCH (10:05)
[2021-02-21 10:13] LABS: ALT (SGPT) 438 U/L (8-55); AST (SGOT) 171 U/L (5-34); Albumin 2.6 g/dL (3.4-4.8); Alkaline Phosphatase 136 U/L (40-110); Bilirubin, Direct 0.3 mg/dL (0.1-0.3); Bilirubin, Total 0.8 mg/dL (0.2-1.2); Protein, Total 5.9 g/dL (5.8-8.1)
[2021-02-21 12:50] VITALS: TEMP 98.5
[2021-02-21 16:15] LABS: Phosphorus 2.7 mg/dL (2.3-4.7)
[2021-02-21 19:07] VITALS: BP 110/60
[2021-02-21] MEDS ORDERED: Apixaban 5 MG TAB PO SCH ×2 (21:00)
== END 2021-02-21 18:15 | disposition home or self-care (01) | DRG 682 ==
LOC: CSHERS 14:04 → CSHIMCU 21:45 → CSHTELE 02-17 17:54
PROVIDERS: ADMIT Student in an Organized Health Care Education/Training Program; ATTEND Internal Medicine
PROC: 06HY33Z Insertion of Infusion Device into Lower Vein, Percutaneous Approach (ICD-10-PCS; principal; 2021-02-15)
PROC: 5A1D70Z Performance of Urinary Filtration, Intermittent, Less than 6 Hours Per Day (ICD-10-PCS; 2021-02-15)
PROC: 30233N1 Transfusion of Nonautologous Red Blood Cells into Peripheral Vein, Percutaneous Approach (ICD-10-PCS; 2021-02-17)
DX: N17.9 Acute kidney failure, unspecified (principal); I50.23 Acute on chronic systolic (congestive) heart failure; J96.01 Acute respiratory failure with hypoxia; J96.02 Acute respiratory failure with hypercapnia; I13.0 Hypertensive heart and chronic kidney disease with heart failure and stage 1 through stage 4 chronic kidney disease, or unspecified chronic kidney disease; I48.11 Longstanding persistent atrial fibrillation; E87.1 Hypo-osmolality and hyponatremia; E87.2 Acidosis; D62 Acute posthemorrhagic anemia; J44.9 Chronic obstructive pulmonary disease, unspecified; E03.9 Hypothyroidism, unspecified; E78.2 Mixed hyperlipidemia; E11.22 Type 2 diabetes mellitus with diabetic chronic kidney disease; E66.9 Obesity, unspecified; D50.9 Iron deficiency anemia, unspecified; I25.118 Atherosclerotic heart disease of native coronary artery with other forms of angina pectoris; N18.30 Chronic kidney disease, stage 3 unspecified; I48.0 Paroxysmal atrial fibrillation; E11.65 Type 2 diabetes mellitus with hyperglycemia; K76.1 Chronic passive congestion of liver; Z20.822 Contact with and (suspected) exposure to COVID-19; E87.6 Hypokalemia; E83.39 Other disorders of phosphorus metabolism; E83.42 Hypomagnesemia; D72.829 Elevated white blood cell count, unspecified; R31.9 Hematuria, unspecified; Z88.8 Allergy status to other drugs, medicaments and biological substances; Z95.5 Presence of coronary angioplasty implant and graft; Z79.82 Long term (current) use of aspirin; Z79.01 Long term (current) use of anticoagulants; Z79.899 Other long term (current) drug therapy; Z90.710 Acquired absence of both cervix and uterus; Z87.891 Personal history of nicotine dependence; Z68.33 Body mass index [BMI] 33.0-33.9, adult
CPT/HCPCS: 36415; 36416; 36430; 71045; 74176; 76770; 80048; 80053; 80076; 81001; 81003; 81015; 82550; 83540; 83550; 83605; 83735; 83880; 84100; 84443; 84484; 85025; 85610; 85730; 86140; 86704; 86706; 86803; 86850; 86900; 86901; 87070; 87086; 87205; 87340; 90935; 93005; 93010; 93306; 94664; 94760; G0257; J0696; J1160; J1815; J1940; J2930; J3475; J3490; J7030; P9016; U0002

== ENCOUNTER 2021-02-28 10:40 | Inpatient (IN) | payer MEDICARE, MEDICAID ==
[2021-02-28 11:59] LABS: #Eosinphils 0.1 10x3/uL (0.0-0.5); #Monocytes 1.1 10x3/uL (0.0-1.1); #Neutrophils 13.2 10x3/uL (1.5-8.4); %Basophils 0.2 % (0.0-2.0); %Eosinophils 0.5 % (0.0-6.0); %Lymphocytes 4.5 % (18.0-47.0); %Monocytes 7.2 % (0.0-10.0); %Neutrophils 86.9 % (40.0-75.0); Hemoglobin 8.7 g/dL (12.0-15.5); Mean Corpuscular HGB CONC 32.3 g/dL (32.0-36.0); Mean Corpuscular Hemoglobin 23.6 pg (27.0-33.0); Mean Corpuscular Volume 73.1 fl (81.6-98.3); Mean Platelet Volume 10.4 fl (7.4-10.4); Platelet Count 281 10x3/uL (150-450); RBC Distribution Width 24.9 % (11.5-14.5); Red Blood Cell (RBC) Count 3.68 10x6/uL (3.90-5.03); White Blood Cell (WBC) Count 15.2 10x3/uL (3.5-10.5)
[2021-02-28 12:08] LABS: ALT (SGPT) 107 U/L (8-55); AST (SGOT) 46 U/L (5-34); Albumin 3.7 g/dL (3.4-4.8); Alkaline Phosphatase 110 U/L (40-110); Anion Gap 15 mmol/L (10-20); BUN (Urea Nitrogen) 14 mg/dL (9.8-20.1); Bilirubin, Total 0.9 mg/dL (0.2-1.2); Calc. Creatinine Clearance 0 mL/min (70-130); Calcium 8.9 mg/dL (7.8-10.44); Carbon Dioxide 24 mmol/L (23-31); Chloride 100 mmol/L (98-107); Globulin 3.9 g/dL (2.4-3.5); Glucose 183 mg/dL (83-110); Protein, Total 7.6 g/dL (5.8-8.1); Sodium 135 mmol/L (136-145)
[2021-02-28] MEDS ORDERED: Diltiazem 125 MG/25 ML ONE (13:57)
[2021-02-28] MEDS ORDERED: Aspirin Chewable 81 MG TAB ONE (15:16)
[2021-02-28 16:40] VITALS: BMI 34.5
[2021-02-28] MEDS ORDERED: Albuterol Sulfate 2.5 mg/3 ml Neb NEB PRN (17:26)
[2021-02-28] MEDS ORDERED: HumaLOG 300 UNITS/3 ML VIAL SC PRN (18:43)
[2021-02-28] MEDS ORDERED: Dextrose 5% in Water 1,000 ML IV PRN (18:43)
[2021-02-28] MEDS ORDERED: Dextrose 50% Abboject 50 ML SYRINGE SLOW IVP PRN (18:43)
[2021-02-28] MEDS: Mometasone/Formoterol 200/5 60 PUFF INH SCH (19:25)
[2021-02-28] MEDS: Apixaban 5 MG TAB PO SCH (21:30)
[2021-02-28] MEDS: TICAGRELOR 90 MG TABLET PO SCH (21:30)
[2021-03-01 06:33] LABS: #Eosinphils 0.2 10x3/uL (0.0-0.5); #Monocytes 0.9 10x3/uL (0.0-1.1); #Neutrophils 10.4 10x3/uL (1.5-8.4); %Basophils 0.3 % (0.0-2.0); %Eosinophils 1.5 % (0.0-6.0); %Lymphocytes 5.2 % (18.0-47.0); %Monocytes 7.3 % (0.0-10.0); %Neutrophils 85.1 % (40.0-75.0); Mean Corpuscular HGB CONC 32.8 g/dL (32.0-36.0); Mean Corpuscular Hemoglobin 24.4 pg (27.0-33.0); Mean Corpuscular Volume 74.4 fl (81.6-98.3); Mean Platelet Volume 10.7 fl (7.4-10.4); Platelet Count 258 10x3/uL (150-450); RBC Distribution Width 24.8 % (11.5-14.5); Red Blood Cell (RBC) Count 3.28 10x6/uL (3.90-5.03); White Blood Cell (WBC) Count 12.2 10x3/uL (3.5-10.5)
[2021-03-01 06:45] LABS: Anion Gap 13 mmol/L (10-20); BUN (Urea Nitrogen) 11 mg/dL (9.8-20.1); Calc. Creatinine Clearance 74 mL/min (70-130); Calcium 8.5 mg/dL (7.8-10.44); Carbon Dioxide 24 mmol/L (23-31); Chloride 102 mmol/L (98-107); Glucose 129 mg/dL (83-110); Potassium 3.2 mmol/L (3.5-5.1); Sodium 136 mmol/L (136-145)
[2021-03-01] MEDS: Levothyroxine Sodium 125 MCG TAB PO SCH (07:02)
[2021-03-01] MEDS: Carvedilol 3.125 MG TAB PO SCH ×2 (08:27→17:56)
[2021-03-01] MEDS: Atorvastatin Calcium 40 MG TAB PO SCH (08:28)
[2021-03-01] MEDS: Apixaban 5 MG TAB PO SCH ×2 (08:31→20:56)
[2021-03-01] MEDS: TICAGRELOR 90 MG TABLET PO SCH ×2 (08:31→20:56)
[2021-03-01] MEDS: Alogliptin 25 MG TAB PO SCH (08:31)
[2021-03-01] MEDS: Potassium Chloride 20 MEQ TAB PO SCH (08:32)
[2021-03-01] MEDS: Furosemide 40 MG TAB PO SCH (08:32)
[2021-03-01] MEDS: Oxybutynin ER 5 MG TAB PO SCH (08:56)
[2021-03-01] MEDS: Digoxin 0.125 MG TAB PO SCH (08:56)
[2021-03-01] MEDS: Pioglitazone HCl 45 MG TAB PO SCH (08:56)
[2021-03-01] MEDS ORDERED: Potassium Chloride 20 MEQ TAB PO SCH (09:00)
[2021-03-01] MEDS ORDERED: Mometasone/Formoterol 60 PUFF AER INH SCH (09:00)
[2021-03-01] MEDS ORDERED: Pantoprazole 40 MG GRANULES PACKET PO SCH (09:00)
[2021-03-01] MEDS: Mometasone/Formoterol 200/5 60 PUFF INH SCH (09:24)
[2021-03-01 10:29] LABS: Magnesium 1.5 mg/dL (1.6-2.6)
[2021-03-01] MEDS: Magnesium 2 GM/50 ML 2 GM in Premix Bag 1 BAG IVPB SCH ×2 (11:22→13:12)
[2021-03-01] MEDS: HumaLOG 300 UNITS/3 ML VIAL SC PRN (12:47)
[2021-03-01 13:53] LABS: SARS-CoV-2 PCR by NAA Not Detected (NotDetected)
[2021-03-01] MEDS: Mometasone/Formoterol 60 PUFF AER INH SCH (19:30)
[2021-03-01] MEDS: Diltiazem 125 MG in Sodium Chloride 0.9% 100 ML IVPB SCH (20:55)
[2021-03-01] MEDS ORDERED: Latanoprost 0.005% Ophth Soln 2.5 ml Bottle EA EYE SCH (22:45)
[2021-03-02 05:07] LABS: #Eosinphils 0.2 10x3/uL (0.0-0.5); #Monocytes 0.9 10x3/uL (0.0-1.1); #Neutrophils 10.3 10x3/uL (1.5-8.4); %Basophils 0.3 % (0.0-2.0); %Eosinophils 1.3 % (0.0-6.0); %Lymphocytes 5.6 % (18.0-47.0); %Monocytes 7.5 % (0.0-10.0); %Neutrophils 84.2 % (40.0-75.0); Hemoglobin 7.4 g/dL (12.0-15.5); Mean Corpuscular HGB CONC 31.9 g/dL (32.0-36.0); Mean Corpuscular Hemoglobin 23.7 pg (27.0-33.0); Mean Corpuscular Volume 74.4 fl (81.6-98.3); Mean Platelet Volume 10.4 fl (7.4-10.4); RBC Distribution Width 24.6 % (11.5-14.5); Red Blood Cell (RBC) Count 3.12 10x6/uL (3.90-5.03); White Blood Cell (WBC) Count 12.2 10x3/uL (3.5-10.5)
[2021-03-02 05:14] LABS: Anion Gap 13 mmol/L (10-20); BUN (Urea Nitrogen) 21 mg/dL (9.8-20.1); Calc. Creatinine Clearance 69 mL/min (70-130); Calcium 8.3 mg/dL (7.8-10.44); Carbon Dioxide 23 mmol/L (23-31); Chloride 102 mmol/L (98-107); Glucose 170 mg/dL (83-110); Magnesium 1.8 mg/dL (1.6-2.6); Potassium 4.1 mmol/L (3.5-5.1); Sodium 134 mmol/L (136-145)
[2021-03-02 05:34] LABS: Anisocytosis SLIGHT = 6-15 cells (100X) (0-5/hpf); Hypochromia MODERATE=16-30 cells (100X) (0-5/hpf); Platelet Count 244 10x3/uL (150-450)
[2021-03-02 05:35] LABS: Target Cells SLIGHT = 2-5 cells (100X) (0-1/hpf)
[2021-03-02 05:36] LABS: Platelet Morphology Comment Appears Adequate
[2021-03-02] MEDS: Levothyroxine Sodium 125 MCG TAB PO SCH (06:33)
[2021-03-02] MEDS: Mometasone/Formoterol 60 PUFF AER INH SCH ×2 (07:22→20:00)
[2021-03-02] MEDS: Digoxin 0.125 MG TAB PO SCH (09:11)
[2021-03-02] MEDS: Potassium Chloride 20 MEQ TAB PO SCH (09:11)
[2021-03-02] MEDS: Apixaban 5 MG TAB PO SCH (09:11)
[2021-03-02] MEDS: Pioglitazone HCl 45 MG TAB PO SCH (09:11)
[2021-03-02] MEDS: Alogliptin 25 MG TAB PO SCH (09:11)
[2021-03-02] MEDS: Oxybutynin ER 5 MG TAB PO SCH (09:11)
[2021-03-02] MEDS: Furosemide 40 MG TAB PO SCH (09:11)
[2021-03-02] MEDS: Atorvastatin Calcium 40 MG TAB PO SCH (09:11)
[2021-03-02] MEDS: TICAGRELOR 90 MG TABLET PO SCH ×2 (09:12→20:56)
[2021-03-02] MEDS: Carvedilol 3.125 MG TAB PO SCH ×2 (09:12→18:12)
[2021-03-02 11:12] LABS: Bilirubin Neg (Negative); Blood, Urine Negative (Negative); Glucose, Urine (Dipstick) 100 mg/dL (Negative); Ketone, Urine Negative (Negative); Leukocyte 500 (Negative); Nitrite Negative (Negative); Protein, Urine (Dipstick) 15 mg/dl (Neg-Trace); Urobilinogen Normal mg/dL (Less than 2)
[2021-03-02 11:14] LABS: Clarity Slightly Cloudy (Clear)
[2021-03-02 11:22] LABS: Bacteria/HPF 4+ HPF (None Seen); RBC/HPF 0-3 HPF (0-3); Squamous Epithelial Greater than 50 HPF (0-3); WBC/HPF Greater than 50 HPF (0-3)
[2021-03-02] MEDS: HumaLOG 300 UNITS/3 ML VIAL SC PRN ×2 (14:04→18:12)
[2021-03-02] MEDS: Apixaban 2.5 MG TAB PO SCH (20:56)
[2021-03-02] MEDS: Latanoprost 0.005% Ophth Soln 2.5 ml Bottle EA EYE SCH (21:01)
[2021-03-03 03:39] LABS: Anion Gap 13 mmol/L (10-20); BUN (Urea Nitrogen) 15 mg/dL (9.8-20.1); Calc. Creatinine Clearance 77 mL/min (70-130); Calcium 8.1 mg/dL (7.8-10.44); Carbon Dioxide 23 mmol/L (23-31); Chloride 104 mmol/L (98-107); Glucose 112 mg/dL (83-110); Potassium 3.6 mmol/L (3.5-5.1); Sodium 136 mmol/L (136-145)
[2021-03-03 03:41] LABS: Hemoglobin 7.9 g/dL (12.0-15.5); Mean Corpuscular HGB CONC 32.2 g/dL (32.0-36.0); Mean Corpuscular Hemoglobin 24.2 pg (27.0-33.0); Mean Corpuscular Volume 75.2 fl (81.6-98.3); Mean Platelet Volume 10.7 fl (7.4-10.4); Platelet Count 236 10x3/uL (150-450); RBC Distribution Width 23.7 % (11.5-14.5); Red Blood Cell (RBC) Count 3.26 10x6/uL (3.90-5.03); White Blood Cell (WBC) Count 10.8 10x3/uL (3.5-10.5)
[2021-03-03 03:45] LABS: #Basophils 0.1 10x3/uL (0.0-0.2); #Eosinphils 0.2 10x3/uL (0.0-0.5); #Neutrophils 8.7 10x3/uL (1.5-8.4); %Basophils 0.5 % (0.0-2.0); %Eosinophils 1.9 % (0.0-6.0); %Lymphocytes 7.2 % (18.0-47.0); %Monocytes 8.8 % (0.0-10.0); %Neutrophils 80.4 % (40.0-75.0)
[2021-03-03] MEDS: Diltiazem 125 MG in Sodium Chloride 0.9% 100 ML IVPB SCH (04:25)
[2021-03-03] MEDS: Levothyroxine Sodium 125 MCG TAB PO SCH (04:28)
[2021-03-03 04:30] LABS: Polychromasia SLIGHT = 2-3 cells (100X) (0-2/hpf)
[2021-03-03 04:31] LABS: Hypochromia SLIGHT = 6-15 cells (100X) (0-5/hpf); Microcytosis SLIGHT = 6-15 cells (100X) (0-5/hpf)
[2021-03-03] MEDS: Mometasone/Formoterol 60 PUFF AER INH SCH ×2 (06:45→19:20)
[2021-03-03] MEDS ORDERED: Carvedilol 6.25 MG TAB PO SCH (08:45)
[2021-03-03 09:00] LABS: Magnesium 1.6 mg/dL (1.6-2.6)
[2021-03-03] MEDS ORDERED: Potassium Chloride 20 MEQ TAB PO SCH (09:00)
[2021-03-03] MEDS: Carvedilol 3.125 MG TAB PO SCH (09:08)
[2021-03-03] MEDS: Oxybutynin ER 5 MG TAB PO SCH (09:38)
[2021-03-03] MEDS: Alogliptin 25 MG TAB PO SCH (09:39)
[2021-03-03] MEDS: Atorvastatin Calcium 40 MG TAB PO SCH (09:40)
[2021-03-03] MEDS: Potassium Chloride 20 MEQ TAB PO SCH (09:40)
[2021-03-03] MEDS: Digoxin 0.125 MG TAB PO SCH (09:40)
[2021-03-03] MEDS: Furosemide 40 MG TAB PO SCH (09:40)
[2021-03-03] MEDS: Pioglitazone HCl 45 MG TAB PO SCH (09:40)
[2021-03-03] MEDS: Apixaban 2.5 MG TAB PO SCH ×2 (09:40→20:35)
[2021-03-03] MEDS: TICAGRELOR 90 MG TABLET PO SCH ×2 (09:42→20:36)
[2021-03-03] MEDS ORDERED: Magnesium Sulfate 4 GM in Sodium Chloride 0.9% 250 ML 250 ML IVPB SCH (10:15)
[2021-03-03] MEDS: Magnesium 2 GM/50 ML 2 GM in Premix Bag 1 BAG IVPB SCH ×2 (10:43→12:01)
[2021-03-03 11:53] LABS: Hemoglobin 8.4 g/dL (12.0-15.5)
[2021-03-03] MEDS: HumaLOG 300 UNITS/3 ML VIAL SC PRN (12:01)
[2021-03-03] MEDS: Carvedilol 6.25 MG TAB PO SCH (17:18)
[2021-03-03] MEDS: Latanoprost 0.005% Ophth Soln 2.5 ml Bottle EA EYE SCH (20:35)
[2021-03-04 05:52] LABS: Anion Gap 12 mmol/L (10-20); BUN (Urea Nitrogen) 13 mg/dL (9.8-20.1); Calc. Creatinine Clearance 74 mL/min (70-130); Calcium 8.2 mg/dL (7.8-10.44); Carbon Dioxide 24 mmol/L (23-31); Chloride 102 mmol/L (98-107); Glucose 135 mg/dL (83-110); Magnesium 1.8 mg/dL (1.6-2.6); Sodium 134 mmol/L (136-145)
[2021-03-04 06:02] LABS: #Eosinphils 0.3 10x3/uL (0.0-0.5); #Monocytes 0.9 10x3/uL (0.0-1.1); #Neutrophils 6.5 10x3/uL (1.5-8.4); %Basophils 0.5 % (0.0-2.0); %Eosinophils 2.9 % (0.0-6.0); %Monocytes 10.7 % (0.0-10.0); %Neutrophils 76.3 % (40.0-75.0); Hemoglobin 7.9 g/dL (12.0-15.5); Mean Corpuscular HGB CONC 31.7 g/dL (32.0-36.0); Mean Corpuscular Hemoglobin 24.3 pg (27.0-33.0); Mean Corpuscular Volume 76.6 fl (81.6-98.3); Mean Platelet Volume 10.4 fl (7.4-10.4); Platelet Count 230 10x3/uL (150-450); RBC Distribution Width 24.2 % (11.5-14.5); Red Blood Cell (RBC) Count 3.25 10x6/uL (3.90-5.03); White Blood Cell (WBC) Count 8.5 10x3/uL (3.5-10.5)
[2021-03-04 06:34] LABS: Anisocytosis MODERATE=16-30 cells (100X) (0-5/hpf); Hypochromia SLIGHT = 6-15 cells (100X) (0-5/hpf); Schistocytes SLIGHT = 2-5 cells (100X) (0-1/hpf)
[2021-03-04] MEDS: Levothyroxine Sodium 125 MCG TAB PO SCH (06:45)
[2021-03-04] MEDS: Mometasone/Formoterol 60 PUFF AER INH SCH (06:50)
[2021-03-04] MEDS ORDERED: Digoxin 0.25 MG TAB PO SCH (09:00)
[2021-03-04] MEDS: Pioglitazone HCl 45 MG TAB PO SCH (09:29)
[2021-03-04] MEDS: Potassium Chloride 20 MEQ TAB PO SCH (09:30)
[2021-03-04] MEDS: Oxybutynin ER 5 MG TAB PO SCH (09:30)
[2021-03-04] MEDS: Alogliptin 25 MG TAB PO SCH (09:30)
[2021-03-04] MEDS: Apixaban 2.5 MG TAB PO SCH (09:30)
[2021-03-04] MEDS: TICAGRELOR 90 MG TABLET PO SCH (09:30)
[2021-03-04] MEDS: Carvedilol 6.25 MG TAB PO SCH (09:31)
[2021-03-04] MEDS: Furosemide 40 MG TAB PO SCH (09:31)
[2021-03-04] MEDS: Atorvastatin Calcium 40 MG TAB PO SCH (09:31)
[2021-03-04 13:03] VITALS: BP 120/57; TEMP 99.9
[2021-03-04] MEDS: HumaLOG 300 UNITS/3 ML VIAL SC PRN (13:11)
[2021-03-05] MEDS ORDERED: Magnesium Oxide 400 MG TAB PO SCH (09:00)
== END 2021-03-04 13:40 | disposition home or self-care (01) | DRG 309 ==
LOC: CSHERS 10:40 → INTOOBSV 14:58 → CSHTELE 14:58 → OBSVTOIN 03-02 13:51
PROVIDERS: ADMIT Family Medicine; ATTEND Internal Medicine
PROC: 30233N1 Transfusion of Nonautologous Red Blood Cells into Peripheral Vein, Percutaneous Approach (ICD-10-PCS; principal; 2021-03-02)
DX: I48.11 Longstanding persistent atrial fibrillation (principal); I50.22 Chronic systolic (congestive) heart failure; Z20.822 Contact with and (suspected) exposure to COVID-19; I11.0 Hypertensive heart disease with heart failure; E11.9 Type 2 diabetes mellitus without complications; E78.5 Hyperlipidemia, unspecified; I25.10 Atherosclerotic heart disease of native coronary artery without angina pectoris; E03.9 Hypothyroidism, unspecified; J44.9 Chronic obstructive pulmonary disease, unspecified; D64.9 Anemia, unspecified; E83.42 Hypomagnesemia; E87.6 Hypokalemia; Z88.8 Allergy status to other drugs, medicaments and biological substances; Z79.51 Long term (current) use of inhaled steroids; Z79.899 Other long term (current) drug therapy; Z95.5 Presence of coronary angioplasty implant and graft; Z90.710 Acquired absence of both cervix and uterus; Z87.891 Personal history of nicotine dependence; Z86.73 Personal history of transient ischemic attack (TIA), and cerebral infarction without residual deficits; Z79.01 Long term (current) use of anticoagulants
CPT/HCPCS: 36415; 36416; 36430; 71045; 80048; 80053; 81001; 82274; 83735; 84443; 84484; 85025; 86850; 86900; 86901; 87077; 87086; 87186; 93005; 94664; 94760; 94762; J1815; J3475; J3490; P9016; U0003; U0005

== ENCOUNTER 2021-04-08 17:11 | Inpatient (IN) | payer MEDICARE, MEDICAID ==
[2021-04-08 18:10] LABS: Hemoglobin 9.3 g/dL (12.0-15.5); Mean Corpuscular HGB CONC 31.5 g/dL (32.0-36.0); Mean Corpuscular Hemoglobin 21.8 pg (27.0-33.0); Mean Corpuscular Volume 69.2 fl (81.6-98.3); Mean Platelet Volume 10.1 fl (7.4-10.4); Platelet Count 296 10x3/uL (150-450); RBC Distribution Width 21.2 % (11.5-14.5); Red Blood Cell (RBC) Count 4.26 10x6/uL (3.90-5.03); White Blood Cell (WBC) Count 6.5 10x3/uL (3.5-10.5)
[2021-04-08 18:15] LABS: ALT (SGPT) 24 U/L (8-55); AST (SGOT) 27 U/L (5-34); Albumin 3.8 g/dL (3.4-4.8); Alkaline Phosphatase 70 U/L (40-110); Anion Gap 18 mmol/L (10-20); BUN (Urea Nitrogen) 14 mg/dL (9.8-20.1); Bilirubin, Total 0.6 mg/dL (0.2-1.2); Calc. Creatinine Clearance 0 mL/min (70-130); Calcium 8.9 mg/dL (7.8-10.44); Carbon Dioxide 23 mmol/L (23-31); Chloride 98 mmol/L (98-107); Globulin 3.9 g/dL (2.4-3.5); Glucose 314 mg/dL (83-110); Manual Diff?? YES; Potassium 4.6 mmol/L (3.5-5.1); Protein, Total 7.7 g/dL (5.8-8.1); Sodium 134 mmol/L (136-145)
[2021-04-08 18:16] LABS: MDiff Complete? YES
[2021-04-08 18:59] LABS: Band 3 % (5-11); Lymphocytes 6 % (21-51); Monocytes 9 % (0-10); Neutrophil 81 % (42-75)
[2021-04-08 19:03] LABS: Anisocytosis MODERATE=16-30 cells (100X) (0-5/hpf); Elliptocytes SLIGHT = 2-5 cells (100X) (0-1/hpf); Hypochromia SLIGHT = 6-15 cells (100X) (0-5/hpf); Macrocytosis SLIGHT = 6-15 cells (100X) (0-5/hpf); Microcytosis SLIGHT = 6-15 cells (100X) (0-5/hpf); Platelet Morphology Comment Appears Adequate; Polychromasia SLIGHT = 2-3 cells (100X) (0-2/hpf); Target Cells MODERATE= 6-15 cells (100X) (0-1/hpf)
[2021-04-08] MEDS ORDERED: Furosemide 40 MG/4 ML VIAL ONE (20:13)
[2021-04-08] MEDS ORDERED: Lantus 1000 UNITS/10 ML VIAL SC SCH (20:30)
[2021-04-08] MEDS ORDERED: Dextrose 50% Abboject 50 ML SYRINGE SLOW IVP PRN (21:50)
[2021-04-08] MEDS ORDERED: Dextrose 5% in Water 1,000 ML IV PRN (21:50)
[2021-04-08] MEDS ORDERED: Nitroglycerin 0.4 MG TAB (25 Tab Bottle) SL PRN (22:14)
[2021-04-08 23:00] LABS: Magnesium 1.6 mg/dL (1.6-2.6)
[2021-04-08 23:07] LABS: Troponin I 0.017 ng/mL (< 0.028)
[2021-04-08] MEDS ORDERED: Ventolin HFA Inhaler 60 PUFF INHALER INH PRN (23:15)
[2021-04-08] MEDS ORDERED: FLU VACC QS2021-22(65YR UP)/PF 240 MCG/0.7 ML SYRINGE IM ONE (23:30)
[2021-04-08] MEDS ORDERED: TICAGRELOR 90 MG TABLET PO SCH (23:30)
[2021-04-08] MEDS ORDERED: Furosemide 40 MG/4 ML VIAL SLOW IVP SCH (23:30)
[2021-04-08] MEDS: HumaLOG 300 UNITS/3 ML VIAL SC PRN (23:34)
[2021-04-09] MEDS ORDERED: Magnesium Oxide 400 MG TAB PO SCH (02:45)
[2021-04-09] MEDS ORDERED: Furosemide 20 MG/2 ML VIAL SLOW IVP SCH (06:00)
[2021-04-09 06:21] LABS: #Monocytes 1.1 10x3/uL (0.0-1.1); #Neutrophils 15.5 10x3/uL (1.5-8.4); %Basophils 0.1 % (0.0-2.0); %Lymphocytes 5.6 % (18.0-47.0); %Monocytes 6.3 % (0.0-10.0); %Neutrophils 87.6 % (40.0-75.0); Hemoglobin 9.1 g/dL (12.0-15.5); Mean Corpuscular Hemoglobin 21.8 pg (27.0-33.0); Mean Corpuscular Volume 68.1 fl (81.6-98.3); Mean Platelet Volume 10.1 fl (7.4-10.4); Platelet Count 318 10x3/uL (150-450); RBC Distribution Width 20.9 % (11.5-14.5); Red Blood Cell (RBC) Count 4.17 10x6/uL (3.90-5.03); White Blood Cell (WBC) Count 17.7 10x3/uL (3.5-10.5)
[2021-04-09] MEDS: Levothyroxine Sodium 125 MCG TAB PO SCH (06:26)
[2021-04-09] MEDS: Furosemide 20 MG/2 ML VIAL SLOW IVP SCH ×2 (06:26→13:47)
[2021-04-09] MEDS ORDERED: Mecobalamin [B12 Active] 1,000 MCG Tab.Chew PO SCH (09:00)
[2021-04-09] MEDS ORDERED: GARLIC 500 MG PO SCH (09:00)
[2021-04-09] MEDS: Stress 600 With Zinc 1 TAB PO SCH (09:30)
[2021-04-09] MEDS: Alogliptin 25 MG TAB PO SCH (09:30)
[2021-04-09] MEDS: Cholecalciferol 1,000 UNITS (25 MCG) TAB PO SCH (09:31)
[2021-04-09] MEDS: Potassium Chloride 20 MEQ TAB PO SCH (09:31)
[2021-04-09] MEDS: Fish Oil 1,000 MG CAP PO SCH (09:31)
[2021-04-09] MEDS: Apixaban 2.5 MG TAB PO SCH ×2 (09:31→20:16)
[2021-04-09] MEDS: Multivitamin W/ Minerals 1 TAB PO SCH (09:32)
[2021-04-09] MEDS: Atorvastatin Calcium 40 MG TAB PO SCH (09:32)
[2021-04-09] MEDS: Oxybutynin ER 5 MG TAB PO SCH (09:32)
[2021-04-09] MEDS: TICAGRELOR 90 MG TABLET PO SCH ×2 (09:32→20:16)
[2021-04-09] MEDS: Pantoprazole 40 MG GRANULES PACKET PO SCH (09:33)
[2021-04-09] MEDS: Mometasone/Formoterol 200/5 60 PUFF INH SCH ×2 (09:42→19:05)
[2021-04-09 12:39] LABS: Bilirubin Neg (Negative); Blood, Urine 25 (Negative); Clarity Cloudy (Clear); Glucose, Urine (Dipstick) 50 mg/dL (Negative); Ketone, Urine Negative (Negative); Leukocyte 500 (Negative); Nitrite Negative (Negative); Protein, Urine (Dipstick) 30 mg/dl (Neg-Trace); Urobilinogen Normal mg/dL (Less than 2)
[2021-04-09] MEDS: HumaLOG 300 UNITS/3 ML VIAL SC PRN ×3 (12:40→20:15)
[2021-04-09 12:47] LABS: Urine Culture Reflex No No
[2021-04-09 12:49] LABS: Bacteria/HPF Rare-Few HPF (None Seen); WBC/HPF Greater Than 50 HPF (0-3)
[2021-04-09 12:50] LABS: Transitional Epithelial 0-3 HPF (None Seen)
[2021-04-09] MEDS ORDERED: Guaifenesin DM 100-10/5 ML UDCUP PO PRN (16:42)
[2021-04-09] MEDS ORDERED: diphenhydrAMINE 50 MG/ML VIAL IVP SCH (17:00)
[2021-04-09 17:28] LABS: Anion Gap 14 mmol/L (10-20); BUN (Urea Nitrogen) 14 mg/dL (9.8-20.1); Calc. Creatinine Clearance 56 mL/min (70-130); Calcium 8.8 mg/dL (7.8-10.44); Carbon Dioxide 29 mmol/L (23-31); Glucose 185 mg/dL (83-110); Potassium 4.1 mmol/L (3.5-5.1); Sodium 134 mmol/L (136-145)
[2021-04-09 17:31] LABS: Chloride 95 mmol/L (98-107)
[2021-04-09 20:02] LABS: SARS-CoV-2 PCR by NAA Not Detected (NotDetected)
[2021-04-09] MEDS ORDERED: Carvedilol 6.25 MG TAB PO SCH (21:00)
[2021-04-09] MEDS ORDERED: LOTEPREDNOL ETABONATE L EYE SCH (21:00)
[2021-04-09] MEDS: Latanoprost 0.005% Ophth Soln 2.5 ml Bottle EA EYE SCH (21:12)
[2021-04-09] MEDS: Moxifloxacin 0.5% Opth Drop 3 ML BOT L EYE SCH (21:13)
[2021-04-10] MEDS: Furosemide 20 MG/2 ML VIAL SLOW IVP SCH ×2 (05:31→15:15)
[2021-04-10] MEDS: Levothyroxine Sodium 125 MCG TAB PO SCH (05:31)
[2021-04-10 07:11] LABS: Anion Gap 14 mmol/L (10-20); BUN (Urea Nitrogen) 12 mg/dL (9.8-20.1); Calc. Creatinine Clearance 64 mL/min (70-130); Calcium 8.8 mg/dL (7.8-10.44); Carbon Dioxide 31 mmol/L (23-31); Chloride 97 mmol/L (98-107); Glucose 115 mg/dL (83-110); Potassium 3.5 mmol/L (3.5-5.1); Sodium 138 mmol/L (136-145)
[2021-04-10] MEDS: Mometasone/Formoterol 200/5 60 PUFF INH SCH ×2 (07:12→21:26)
[2021-04-10 07:18] LABS: #Eosinphils 0.3 10x3/uL (0.0-0.5); #Neutrophils 8.4 10x3/uL (1.5-8.4); %Basophils 0.1 % (0.0-2.0); %Eosinophils 2.5 % (0.0-6.0); %Monocytes 8.9 % (0.0-10.0); Hemoglobin 8.7 g/dL (12.0-15.5); Mean Corpuscular HGB CONC 31.9 g/dL (32.0-36.0); Mean Corpuscular Hemoglobin 21.7 pg (27.0-33.0); Mean Corpuscular Volume 68.1 fl (81.6-98.3); Mean Platelet Volume 10.3 fl (7.4-10.4); Platelet Count 326 10x3/uL (150-450); RBC Distribution Width 20.8 % (11.5-14.5); Red Blood Cell (RBC) Count 4.01 10x6/uL (3.90-5.03)
[2021-04-10] MEDS ORDERED: MAG CARB PO SCH (09:00)
[2021-04-10] MEDS ORDERED: CALCIUM CARBONATE PO SCH (09:00)
[2021-04-10] MEDS ORDERED: Bromfenac Sodium [Prolensa] 3 ML Drops L EYE SCH (09:00)
[2021-04-10] MEDS: Apixaban 2.5 MG TAB PO SCH ×2 (10:37→20:12)
[2021-04-10] MEDS: Digoxin 0.25 MG TAB PO SCH (10:37)
[2021-04-10] MEDS: Stress 600 With Zinc 1 TAB PO SCH (10:37)
[2021-04-10] MEDS: Alogliptin 25 MG TAB PO SCH (10:37)
[2021-04-10] MEDS: Fish Oil 1,000 MG CAP PO SCH (10:37)
[2021-04-10] MEDS: Cholecalciferol 1,000 UNITS (25 MCG) TAB PO SCH (10:37)
[2021-04-10] MEDS: Multivitamin W/ Minerals 1 TAB PO SCH (10:37)
[2021-04-10] MEDS: Potassium Chloride 20 MEQ TAB PO SCH (10:37)
[2021-04-10] MEDS: TICAGRELOR 90 MG TABLET PO SCH ×2 (10:38→20:12)
[2021-04-10] MEDS: Pantoprazole 40 MG GRANULES PACKET PO SCH (10:38)
[2021-04-10] MEDS: Atorvastatin Calcium 40 MG TAB PO SCH (10:38)
[2021-04-10] MEDS: Moxifloxacin 0.5% Opth Drop 3 ML BOT L EYE SCH ×2 (10:38→20:30)
[2021-04-10] MEDS: Oxybutynin ER 5 MG TAB PO SCH (10:38)
[2021-04-10] MEDS: HumaLOG 300 UNITS/3 ML VIAL SC PRN ×2 (12:51→17:52)
[2021-04-10] MEDS: cefTRIAXone\\ROCEPHIN 1 GM in Sodium Chloride 0.9% 100 ML IVPB SCH (15:15)
[2021-04-10] MEDS: Latanoprost 0.005% Ophth Soln 2.5 ml Bottle EA EYE SCH (20:30)
[2021-04-11 05:48] LABS: Anion Gap 14 mmol/L (10-20); BUN (Urea Nitrogen) 10 mg/dL (9.8-20.1); Calc. Creatinine Clearance 72 mL/min (70-130); Calcium 8.4 mg/dL (7.8-10.44); Carbon Dioxide 30 mmol/L (23-31); Chloride 97 mmol/L (98-107); Glucose 104 mg/dL (83-110); Potassium 3.7 mmol/L (3.5-5.1); Sodium 137 mmol/L (136-145)
[2021-04-11 06:00] LABS: #Eosinphils 0.4 10x3/uL (0.0-0.5); #Monocytes 1.1 10x3/uL (0.0-1.1); #Neutrophils 7.5 10x3/uL (1.5-8.4); %Basophils 0.2 % (0.0-2.0); %Eosinophils 3.4 % (0.0-6.0); %Lymphocytes 12.3 % (18.0-47.0); %Monocytes 10.8 % (0.0-10.0); %Neutrophils 72.7 % (40.0-75.0); Hemoglobin 8.6 g/dL (12.0-15.5); Mean Corpuscular HGB CONC 31.2 g/dL (32.0-36.0); Mean Corpuscular Hemoglobin 21.4 pg (27.0-33.0); Mean Corpuscular Volume 68.8 fl (81.6-98.3); Mean Platelet Volume 10.3 fl (7.4-10.4); Platelet Count 346 10x3/uL (150-450); RBC Distribution Width 21.2 % (11.5-14.5); Red Blood Cell (RBC) Count 4.01 10x6/uL (3.90-5.03); White Blood Cell (WBC) Count 10.3 10x3/uL (3.5-10.5)
[2021-04-11] MEDS: Furosemide 20 MG/2 ML VIAL SLOW IVP SCH ×2 (06:06→13:32)
[2021-04-11] MEDS: Levothyroxine Sodium 125 MCG TAB PO SCH (06:06)
[2021-04-11] MEDS: Mometasone/Formoterol 200/5 60 PUFF INH SCH ×2 (07:11→19:40)
[2021-04-11] MEDS ORDERED: Carvedilol 3.125 MG TAB PO SCH (10:15)
[2021-04-11] MEDS: Digoxin 0.25 MG TAB PO SCH (10:24)
[2021-04-11] MEDS: Atorvastatin Calcium 40 MG TAB PO SCH (10:28)
[2021-04-11] MEDS: Cholecalciferol 1,000 UNITS (25 MCG) TAB PO SCH (10:28)
[2021-04-11] MEDS: Potassium Chloride 20 MEQ TAB PO SCH (10:28)
[2021-04-11] MEDS: Pantoprazole 40 MG GRANULES PACKET PO SCH (10:28)
[2021-04-11] MEDS: Alogliptin 25 MG TAB PO SCH (10:29)
[2021-04-11] MEDS: Apixaban 2.5 MG TAB PO SCH ×2 (10:35→21:45)
[2021-04-11] MEDS: Multivitamin W/ Minerals 1 TAB PO SCH (10:35)
[2021-04-11] MEDS: Stress 600 With Zinc 1 TAB PO SCH (10:35)
[2021-04-11] MEDS: Fish Oil 1,000 MG CAP PO SCH (10:36)
[2021-04-11] MEDS: TICAGRELOR 90 MG TABLET PO SCH ×2 (10:36→21:45)
[2021-04-11] MEDS: Moxifloxacin 0.5% Opth Drop 3 ML BOT L EYE SCH ×2 (10:55→21:00)
[2021-04-11] MEDS: Oxybutynin ER 5 MG TAB PO SCH (10:55)
[2021-04-11] MEDS: cefTRIAXone\\ROCEPHIN 1 GM in Sodium Chloride 0.9% 100 ML IVPB SCH (13:29)
[2021-04-11] MEDS: HumaLOG 300 UNITS/3 ML VIAL SC PRN (13:29)
[2021-04-11] MEDS: Carvedilol 3.125 MG TAB PO SCH (17:40)
[2021-04-11] MEDS: Latanoprost 0.005% Ophth Soln 2.5 ml Bottle EA EYE SCH (21:00)
[2021-04-12 05:36] VITALS: BMI 31.4
[2021-04-12] MEDS: Levothyroxine Sodium 125 MCG TAB PO SCH (06:30)
[2021-04-12] MEDS: Furosemide 20 MG/2 ML VIAL SLOW IVP SCH ×2 (06:30→12:45)
[2021-04-12] MEDS ORDERED: Chloraseptic Spray 180 ml Bottle PO PRN (09:52)
[2021-04-12] MEDS: Mometasone/Formoterol 200/5 60 PUFF INH SCH ×2 (11:30→19:15)
[2021-04-12] MEDS: Pantoprazole 40 MG GRANULES PACKET PO SCH (12:43)
[2021-04-12] MEDS: Atorvastatin Calcium 40 MG TAB PO SCH (12:43)
[2021-04-12] MEDS: Digoxin 0.25 MG TAB PO SCH (12:44)
[2021-04-12] MEDS: Alogliptin 25 MG TAB PO SCH (12:44)
[2021-04-12] MEDS: Potassium Chloride 20 MEQ TAB PO SCH (12:44)
[2021-04-12] MEDS: Carvedilol 3.125 MG TAB PO SCH ×2 (12:44→18:21)
[2021-04-12] MEDS: Fish Oil 1,000 MG CAP PO SCH (12:44)
[2021-04-12] MEDS: Apixaban 2.5 MG TAB PO SCH ×2 (12:45→21:34)
[2021-04-12] MEDS: Cholecalciferol 1,000 UNITS (25 MCG) TAB PO SCH (12:45)
[2021-04-12] MEDS: Stress 600 With Zinc 1 TAB PO SCH (12:45)
[2021-04-12] MEDS: Multivitamin W/ Minerals 1 TAB PO SCH (12:45)
[2021-04-12] MEDS: TICAGRELOR 90 MG TABLET PO SCH ×2 (12:49→21:33)
[2021-04-12] MEDS: Moxifloxacin 0.5% Opth Drop 3 ML BOT L EYE SCH ×2 (12:51→21:04)
[2021-04-12] MEDS: Oxybutynin ER 5 MG TAB PO SCH (12:51)
[2021-04-12] MEDS: HumaLOG 300 UNITS/3 ML VIAL SC PRN (12:54)
[2021-04-12] MEDS: cefTRIAXone\\ROCEPHIN 1 GM in Sodium Chloride 0.9% 100 ML IVPB SCH (13:09)
[2021-04-12] MEDS: Acetaminophen 325 MG TAB PO PRN ×2 (18:22→21:34)
[2021-04-12] MEDS: Latanoprost 0.005% Ophth Soln 2.5 ml Bottle EA EYE SCH (21:03)
[2021-04-13] MEDS: Levothyroxine Sodium 125 MCG TAB PO SCH (06:04)
[2021-04-13] MEDS: Furosemide 20 MG/2 ML VIAL SLOW IVP SCH (06:04)
[2021-04-13] MEDS: Mometasone/Formoterol 200/5 60 PUFF INH SCH (08:05)
[2021-04-13] MEDS: Multivitamin W/ Minerals 1 TAB PO SCH (08:39)
[2021-04-13] MEDS: Oxybutynin ER 5 MG TAB PO SCH (08:40)
[2021-04-13] MEDS: Alogliptin 25 MG TAB PO SCH (08:40)
[2021-04-13] MEDS: Fish Oil 1,000 MG CAP PO SCH (08:40)
[2021-04-13] MEDS: Potassium Chloride 20 MEQ TAB PO SCH (08:40)
[2021-04-13] MEDS: Stress 600 With Zinc 1 TAB PO SCH (08:40)
[2021-04-13] MEDS: Cholecalciferol 1,000 UNITS (25 MCG) TAB PO SCH (08:40)
[2021-04-13] MEDS: Apixaban 2.5 MG TAB PO SCH (08:40)
[2021-04-13] MEDS: Atorvastatin Calcium 40 MG TAB PO SCH (08:40)
[2021-04-13] MEDS: Carvedilol 3.125 MG TAB PO SCH (08:40)
[2021-04-13] MEDS: Moxifloxacin 0.5% Opth Drop 3 ML BOT L EYE SCH (08:41)
[2021-04-13] MEDS: TICAGRELOR 90 MG TABLET PO SCH (08:41)
[2021-04-13] MEDS: Pantoprazole 40 MG GRANULES PACKET PO SCH (08:41)
[2021-04-13] MEDS: Digoxin 0.25 MG TAB PO SCH (08:41)
[2021-04-13] MEDS ORDERED: Aluminum & Magnesium Hydroxide 60 ML, diphenhydrAMINE 150 MG, Lidocaine 2% Viscous Solu... SSW PRN (10:42)
[2021-04-13] MEDS: Acetaminophen 325 MG TAB PO PRN (10:45)
[2021-04-13 15:58] VITALS: BP 120/56; TEMP 97.7
== END 2021-04-13 17:52 | disposition home health service (06) | DRG 291 ==
LOC: CSHERS 17:11 → CSHTELE 22:31
PROVIDERS: ADMIT Family Medicine; ATTEND Hospitalist
DX: I13.0 Hypertensive heart and chronic kidney disease with heart failure and stage 1 through stage 4 chronic kidney disease, or unspecified chronic kidney disease (principal); I50.23 Acute on chronic systolic (congestive) heart failure; I48.20 Chronic atrial fibrillation, unspecified; I48.11 Longstanding persistent atrial fibrillation; Z20.822 Contact with and (suspected) exposure to COVID-19; I25.10 Atherosclerotic heart disease of native coronary artery without angina pectoris; E11.65 Type 2 diabetes mellitus with hyperglycemia; E11.22 Type 2 diabetes mellitus with diabetic chronic kidney disease; N18.2 Chronic kidney disease, stage 2 (mild); E78.5 Hyperlipidemia, unspecified; D63.1 Anemia in chronic kidney disease; E03.9 Hypothyroidism, unspecified; R62.7 Adult failure to thrive; J44.9 Chronic obstructive pulmonary disease, unspecified; R53.81 Other malaise; I25.2 Old myocardial infarction; Z79.01 Long term (current) use of anticoagulants; Z88.8 Allergy status to other drugs, medicaments and biological substances; Z79.899 Other long term (current) drug therapy; Z90.710 Acquired absence of both cervix and uterus; Z95.5 Presence of coronary angioplasty implant and graft; Z87.891 Personal history of nicotine dependence; Z98.890 Other specified postprocedural states; Z68.31 Body mass index [BMI] 31.0-31.9, adult
CPT/HCPCS: 36415; 36416; 71045; 80048; 80053; 81001; 83735; 83880; 84443; 84484; 85025; 87040; 93005; 93010; 93306; 94640; 94760; 96374; J0696; J1200; J1815; J1940; J3490; J7620; U0003; U0005

== ENCOUNTER 2021-04-23 19:17 | Emergency (ER) | payer MEDICARE, MEDICAID ==
[2021-04-23 20:29] LABS: Bilirubin Neg (Negative); Blood, Urine 250 (Negative); Clarity Slightly Cloudy (Clear); Glucose, Urine (Dipstick) Normal (Negative); Ketone, Urine Negative (Negative); Leukocyte 25 (Negative); Nitrite Negative (Negative); Protein, Urine (Dipstick) 15 mg/dl (Neg-Trace); Urobilinogen Normal mg/dL (Less than 2)
[2021-04-23 20:37] LABS: Bacteria/HPF 1+ HPF (None Seen); RBC/HPF Greater than 50 HPF (0-3); Squamous Epithelial 0-3 HPF (0-3)
== END 2021-04-23 20:54 | disposition home or self-care (01) ==
LOC: CSHERS 19:17
DX: N39.0 Urinary tract infection, site not specified (principal); E11.9 Type 2 diabetes mellitus without complications; I10 Essential (primary) hypertension
CPT/HCPCS: 81003; 81015; 99283

== ENCOUNTER 2021-05-06 23:29 | Inpatient (IN) | payer MEDICARE, OTHER | END 2021-05-07 22:41 | disposition home or self-care (01) | DRG 605 | LOC: CSHERS 23:29 → CSHTELE 05-07 22:40 | PROVIDERS: ADMIT Family Medicine; ATTEND Family Medicine | DX: S20.222A Contusion of left back wall of thorax, initial encounter (principal); W01.0XXA Fall on same level from slipping, tripping and stumbling without subsequent striking against object, initial encounter; E11.9 Type 2 diabetes mellitus without complications; I10 Essential (primary) hypertension; Z95.5 Presence of coronary angioplasty implant and graft; Y92.002 Bathroom of unspecified non-institutional (private) residence as the place of occurrence of the external cause; Z88.8 Allergy status to other drugs, medicaments and biological substances | CPT/HCPCS: 72131 ==

== ENCOUNTER 2021-05-07 18:12 | Inpatient (IN) | payer OTHER, MEDICARE, MEDICAID ==
[2021-05-07 19:42] LABS: #Basophils 0.1 10x3/uL (0.0-0.2); #Eosinphils 0.2 10x3/uL (0.0-0.5); #Monocytes 1.1 10x3/uL (0.0-1.1); #Neutrophils 7.3 10x3/uL (1.5-8.4); %Basophils 0.5 % (0.0-2.0); %Eosinophils 1.8 % (0.0-6.0); %Lymphocytes 11.1 % (18.0-47.0); %Neutrophils 75.1 % (40.0-75.0); Hemoglobin 9.5 g/dL (12.0-15.5); INR-International Normal Ratio 1.2; Mean Corpuscular HGB CONC 31.8 g/dL (32.0-36.0); Mean Corpuscular Hemoglobin 21.2 pg (27.0-33.0); Mean Corpuscular Volume 66.7 fl (81.6-98.3); PTT 30.2 sec (22.0-33.0); Platelet Count 324 10x3/uL (150-450); Prothrombin Time 13.3 sec (9.5-12.1); RBC Distribution Width 22.7 % (11.5-14.5); Red Blood Cell (RBC) Count 4.48 10x6/uL (3.90-5.03); White Blood Cell (WBC) Count 9.8 10x3/uL (3.5-10.5)
[2021-05-07 19:56] LABS: ALT (SGPT) 12 U/L (8-55); AST (SGOT) 21 U/L (5-34); Albumin 3.6 g/dL (3.4-4.8); Alkaline Phosphatase 79 U/L (40-110); Anion Gap 18 mmol/L (10-20); BUN (Urea Nitrogen) 9 mg/dL (9.8-20.1); Bilirubin, Total 0.6 mg/dL (0.2-1.2); Calc. Creatinine Clearance 0 mL/min (70-130); Carbon Dioxide 24 mmol/L (23-31); Chloride 101 mmol/L (98-107); Globulin 4.1 g/dL (2.4-3.5); Glucose 185 mg/dL (83-110); Potassium 4.3 mmol/L (3.5-5.1); Protein, Total 7.7 g/dL (5.8-8.1); Sodium 139 mmol/L (136-145)
[2021-05-07 20:40] LABS: Anisocytosis SLIGHT = 6-15 cells (100X) (0-5/hpf); Hypochromia MODERATE=16-30 cells (100X) (0-5/hpf); Macrocytosis SLIGHT = 6-15 cells (100X) (0-5/hpf); Microcytosis SLIGHT = 6-15 cells (100X) (0-5/hpf); Platelet Morphology Comment Appears Adequate
[2021-05-07 20:41] LABS: Target Cells MODERATE= 6-15 cells (100X) (0-1/hpf)
[2021-05-07] MEDS ORDERED: Nitroglycerin 0.4 MG TAB (25 Tab Bottle) SL PRN (21:50)
[2021-05-07] MEDS ORDERED: Acetaminophen 325 MG TAB PO PRN (21:50)
[2021-05-07 22:11] LABS: Magnesium 1.4 mg/dL (1.6-2.6)
[2021-05-07] MEDS ORDERED: TICAGRELOR 90 MG TABLET PO SCH (23:00)
[2021-05-08 04:24] LABS: #Eosinphils 0.2 10x3/uL (0.0-0.5); #Monocytes 1.2 10x3/uL (0.0-1.1); #Neutrophils 6.9 10x3/uL (1.5-8.4); %Basophils 0.4 % (0.0-2.0); %Eosinophils 2.3 % (0.0-6.0); %Lymphocytes 13.7 % (18.0-47.0); %Monocytes 12.7 % (0.0-10.0); %Neutrophils 70.5 % (40.0-75.0); Hemoglobin 8.4 g/dL (12.0-15.5); Mean Corpuscular HGB CONC 31.9 g/dL (32.0-36.0); Mean Corpuscular Hemoglobin 21.1 pg (27.0-33.0); Mean Corpuscular Volume 66.1 fl (81.6-98.3); Mean Platelet Volume 10.7 fl (7.4-10.4); Platelet Count 308 10x3/uL (150-450); RBC Distribution Width 22.6 % (11.5-14.5); Red Blood Cell (RBC) Count 3.98 10x6/uL (3.90-5.03); White Blood Cell (WBC) Count 9.7 10x3/uL (3.5-10.5)
[2021-05-08 04:36] LABS: Anion Gap 15 mmol/L (10-20); BUN (Urea Nitrogen) 9 mg/dL (9.8-20.1); Calc. Creatinine Clearance 69 mL/min (70-130); Calcium 8.9 mg/dL (7.8-10.44); Carbon Dioxide 27 mmol/L (23-31); Cardiac Risk 3.2 (Less than 4.5); Chloride 101 mmol/L (98-107); Cholesterol 152 mg/dl (< 200 Desired); Glucose 142 mg/dL (83-110); HDL Cholesterol 47 mg/dL (>60 Neg Risk); LDL Cholesterol, Calculated 86 mg/dL; Potassium 3.7 mmol/L (3.5-5.1); Sodium 139 mmol/L (136-145); Triglycerides 94 mg/dL (Less than 150)
[2021-05-08 05:47] LABS: Platelet Morphology Comment Appears Adequate
[2021-05-08 05:50] LABS: Anisocytosis SLIGHT = 6-15 cells (100X) (0-5/hpf); Hypochromia MODERATE=16-30 cells (100X) (0-5/hpf); Macrocytosis SLIGHT = 6-15 cells (100X) (0-5/hpf); Microcytosis SLIGHT = 6-15 cells (100X) (0-5/hpf); Polychromasia SLIGHT = 2-3 cells (100X) (0-2/hpf); Target Cells MODERATE= 6-15 cells (100X) (0-1/hpf); Tear Drops SLIGHT = 2-5 cells (100X) (0-1/hpf)
[2021-05-08] MEDS ORDERED: Levothyroxine Sodium 125 MCG TAB PO SCH (06:00)
[2021-05-08] MEDS ORDERED: Mometasone 200 MCG/Formoterol 5 MCG 120 PUFF INHALER INH SCH (06:30)
[2021-05-08] MEDS ORDERED: Furosemide 40 MG TAB PO SCH (06:45)
[2021-05-08] MEDS ORDERED: Albuterol Sulfate 2.5 mg/3 ml Neb NEB PRN (07:04)
[2021-05-08] MEDS ORDERED: Ondansetron PF 4 MG/2 ML Vial IVP PRN (07:57)
[2021-05-08] MEDS ORDERED: HYDROcodone/Acetaminophen 5/325 mg Tablet PO PRN (07:57)
[2021-05-08] MEDS ORDERED: Ondansetron ODT 4 MG TAB PO PRN (07:57)
[2021-05-08] MEDS ORDERED: Guaifenesin DM 100-10/5 ML UDCUP PO PRN (07:57)
[2021-05-08] MEDS ORDERED: Loperamide HCl 2 MG CAP PO PRN (07:57)
[2021-05-08] MEDS ORDERED: Zolpidem Tartrate 5 MG TAB PO PRN (07:57)
[2021-05-08] MEDS ORDERED: Bisacodyl 10 MG SUPP PR PRN (07:57)
[2021-05-08] MEDS ORDERED: Senokot S 8.6-50 MG TAB PO PRN (07:57)
[2021-05-08] MEDS ORDERED: Potassium Chloride 20 MEQ TAB PO SCH (08:00)
[2021-05-08] MEDS ORDERED: Apixaban 5 MG TAB PO SCH (09:00)
[2021-05-08] MEDS ORDERED: BROMFENAC SODIUM EA EYE SCH (09:00)
[2021-05-08] MEDS ORDERED: Atorvastatin Calcium 40 MG TAB PO SCH (09:00)
[2021-05-08] MEDS ORDERED: Pantoprazole 40 MG GRANULES PACKET PO SCH (09:00)
[2021-05-08] MEDS ORDERED: TICAGRELOR 90 MG TABLET PO SCH (09:00)
[2021-05-08] MEDS ORDERED: Alogliptin 25 MG TAB PO SCH (09:00)
[2021-05-08] MEDS ORDERED: Folic Acid/Vit B Comp W-C PO SCH (09:00)
[2021-05-08] MEDS ORDERED: Cholecalciferol 1,000 UNITS (25 MCG) TAB PO SCH (09:00)
[2021-05-08] MEDS ORDERED: LOTEPREDNOL ETABONATE L EYE SCH (09:00)
[2021-05-08] MEDS ORDERED: Oxybutynin ER 5 MG TAB PO SCH (09:00)
[2021-05-08] MEDS ORDERED: Enoxaparin Sodium 40 MG/0.4 ML SYRINGE SC SCH (09:00)
[2021-05-08] MEDS: Famotidine 20 MG TAB PO SCH ×2 (09:36→21:17)
[2021-05-08] MEDS: TICAGRELOR 90 MG TABLET PO SCH ×2 (09:36→21:17)
[2021-05-08] MEDS: Acetaminophen 325 MG TAB PO PRN ×2 (09:36→21:17)
[2021-05-08] MEDS ORDERED: HumaLOG 300 UNITS/3 ML VIAL SC PRN (11:13)
[2021-05-08] MEDS ORDERED: Dextrose 50% Abboject 50 ML SYRINGE SLOW IVP PRN (11:13)
[2021-05-08] MEDS ORDERED: Dextrose 5% in Water 1,000 ML IV PRN (11:13)
[2021-05-08 19:49] LABS: SARS-CoV-2 PCR by NAA Not Detected (NotDetected)
[2021-05-08] MEDS ORDERED: Latanoprost 0.005% Ophth Soln 2.5 ml Bottle EA EYE SCH (21:00)
[2021-05-09] MEDS: Levothyroxine Sodium 125 MCG TAB PO SCH (05:01)
[2021-05-09 05:19] LABS: ALT (SGPT) 10 U/L (8-55); AST (SGOT) 18 U/L (5-34); Albumin 2.9 g/dL (3.4-4.8); Alkaline Phosphatase 70 U/L (40-110); Anion Gap 13 mmol/L (10-20); BUN (Urea Nitrogen) 12 mg/dL (9.8-20.1); Bilirubin, Total 0.4 mg/dL (0.2-1.2); Calc. Creatinine Clearance 69 mL/min (70-130); Calcium 8.9 mg/dL (7.8-10.44); Carbon Dioxide 30 mmol/L (23-31); Chloride 97 mmol/L (98-107); Globulin 3.8 g/dL (2.4-3.5); Glucose 146 mg/dL (83-110); Potassium 3.9 mmol/L (3.5-5.1); Protein, Total 6.7 g/dL (5.8-8.1); Sodium 136 mmol/L (136-145)
[2021-05-09 05:40] LABS: #Eosinphils 0.3 10x3/uL (0.0-0.5); #Monocytes 1.1 10x3/uL (0.0-1.1); #Neutrophils 6.4 10x3/uL (1.5-8.4); %Basophils 0.3 % (0.0-2.0); %Eosinophils 3.4 % (0.0-6.0); %Lymphocytes 10.2 % (18.0-47.0); %Monocytes 12.9 % (0.0-10.0); %Neutrophils 72.5 % (40.0-75.0); Hemoglobin 8.2 g/dL (12.0-15.5); Mean Corpuscular HGB CONC 31.2 g/dL (32.0-36.0); Mean Corpuscular Hemoglobin 20.7 pg (27.0-33.0); Mean Corpuscular Volume 66.2 fl (81.6-98.3); Mean Platelet Volume 10.6 fl (7.4-10.4); Platelet Count 317 10x3/uL (150-450); RBC Distribution Width 21.7 % (11.5-14.5); Red Blood Cell (RBC) Count 3.97 10x6/uL (3.90-5.03); White Blood Cell (WBC) Count 8.8 10x3/uL (3.5-10.5)
[2021-05-09] MEDS: Mometasone/Formoterol 200/5 60 PUFF INH SCH ×4 (06:50→20:10)
[2021-05-09 08:05] LABS: Anisocytosis SLIGHT = 6-15 cells (100X) (0-5/hpf); Hypochromia SLIGHT = 6-15 cells (100X) (0-5/hpf); Macrocytosis SLIGHT = 6-15 cells (100X) (0-5/hpf); Microcytosis MODERATE=15-30 cells (100X) (0-5/hpf); Platelet Morphology Comment Appears Adequate; Polychromasia SLIGHT = 2-3 cells (100X) (0-2/hpf); Target Cells MODERATE= 6-15 cells (100X) (0-1/hpf)
[2021-05-09] MEDS: Furosemide 40 MG TAB PO SCH (08:34)
[2021-05-09] MEDS: Ferrous Sulfate 325 MG TAB PO SCH (08:34)
[2021-05-09] MEDS: Famotidine 20 MG TAB PO SCH ×2 (08:35→20:38)
[2021-05-09] MEDS: TICAGRELOR 90 MG TABLET PO SCH (08:35)
[2021-05-09] MEDS ORDERED: Furosemide 40 MG TAB PO SCH (09:00)
[2021-05-09] MEDS ORDERED: Apixaban 2.5 MG TAB PO SCH ×2 (09:30→21:00)
[2021-05-09] MEDS ORDERED: Apixaban 5 MG TAB PO SCH (10:30)
[2021-05-09] MEDS: HumaLOG 300 UNITS/3 ML VIAL SC PRN ×2 (12:00→16:41)
[2021-05-09 12:04] VITALS: BMI 28.3
[2021-05-09] MEDS: Atorvastatin Calcium 40 MG TAB PO SCH (20:38)
[2021-05-09] MEDS: Apixaban 5 MG TAB PO SCH (20:38)
[2021-05-10 05:47] LABS: Anion Gap 12 mmol/L (10-20); BUN (Urea Nitrogen) 10 mg/dL (9.8-20.1); Calc. Creatinine Clearance 79 mL/min (70-130); Calcium 8.7 mg/dL (7.8-10.44); Carbon Dioxide 32 mmol/L (23-31); Chloride 98 mmol/L (98-107); Glucose 122 mg/dL (83-110); Potassium 3.5 mmol/L (3.5-5.1); Sodium 138 mmol/L (136-145)
[2021-05-10] MEDS: Furosemide 40 MG TAB PO SCH (06:08)
[2021-05-10] MEDS: Levothyroxine Sodium 125 MCG TAB PO SCH (06:08)
[2021-05-10 06:16] LABS: #Eosinphils 0.2 10x3/uL (0.0-0.5); #Monocytes 1.1 10x3/uL (0.0-1.1); #Neutrophils 6.5 10x3/uL (1.5-8.4); %Basophils 0.2 % (0.0-2.0); %Eosinophils 2.3 % (0.0-6.0); %Lymphocytes 10.8 % (18.0-47.0); %Monocytes 12.2 % (0.0-10.0); %Neutrophils 73.6 % (40.0-75.0); Hemoglobin 8.6 g/dL (12.0-15.5); Mean Corpuscular HGB CONC 31.7 g/dL (32.0-36.0); Mean Corpuscular Hemoglobin 20.8 pg (27.0-33.0); Mean Corpuscular Volume 65.5 fl (81.6-98.3); Mean Platelet Volume 10.5 fl (7.4-10.4); Platelet Count 318 10x3/uL (150-450); RBC Distribution Width 22.3 % (11.5-14.5); Red Blood Cell (RBC) Count 4.14 10x6/uL (3.90-5.03); White Blood Cell (WBC) Count 8.9 10x3/uL (3.5-10.5)
[2021-05-10] MEDS: Mometasone/Formoterol 200/5 60 PUFF INH SCH ×2 (06:30→20:51)
[2021-05-10 08:27] LABS: Anisocytosis MODERATE=16-30 cells (100X) (0-5/hpf); Macrocytosis SLIGHT = 6-15 cells (100X) (0-5/hpf); Microcytosis SLIGHT = 6-15 cells (100X) (0-5/hpf)
[2021-05-10 08:28] LABS: Hypochromia SLIGHT = 6-15 cells (100X) (0-5/hpf); Target Cells MODERATE= 6-15 cells (100X) (0-1/hpf)
[2021-05-10 08:29] LABS: Platelet Morphology Comment Appears Adequate
[2021-05-10] MEDS: Famotidine 20 MG TAB PO SCH ×2 (08:49→20:56)
[2021-05-10] MEDS: Apixaban 5 MG TAB PO SCH ×2 (08:49→20:56)
[2021-05-10] MEDS: Ferrous Sulfate 325 MG TAB PO SCH (08:50)
[2021-05-10] MEDS: Aspirin 81 mg Enteric Coated Tablet PO SCH (08:50)
[2021-05-10] MEDS: Atorvastatin Calcium 40 MG TAB PO SCH (20:56)
[2021-05-11] MEDS: Acetaminophen 325 MG TAB PO PRN (00:38)
[2021-05-11] MEDS: Levothyroxine Sodium 125 MCG TAB PO SCH (06:00)
[2021-05-11] MEDS: Furosemide 40 MG TAB PO SCH (06:00)
[2021-05-11] MEDS: Mometasone/Formoterol 200/5 60 PUFF INH SCH ×2 (07:31→19:16)
[2021-05-11] MEDS ORDERED: Carvedilol 3.125 MG TAB PO SCH (08:30)
[2021-05-11] MEDS: Apixaban 5 MG TAB PO SCH ×2 (08:56→21:58)
[2021-05-11] MEDS: Ferrous Sulfate 325 MG TAB PO SCH (08:56)
[2021-05-11] MEDS: Aspirin 81 mg Enteric Coated Tablet PO SCH (08:56)
[2021-05-11] MEDS: Famotidine 20 MG TAB PO SCH ×2 (08:57→21:58)
[2021-05-11] MEDS: HumaLOG 300 UNITS/3 ML VIAL SC PRN ×2 (12:45→16:40)
[2021-05-11] MEDS: Carvedilol 3.125 MG TAB PO SCH (16:43)
[2021-05-11] MEDS: Atorvastatin Calcium 40 MG TAB PO SCH (21:58)
[2021-05-12] MEDS: Levothyroxine Sodium 125 MCG TAB PO SCH (05:57)
[2021-05-12] MEDS: Mometasone/Formoterol 200/5 60 PUFF INH SCH ×2 (07:31→19:25)
[2021-05-12] MEDS: Ferrous Sulfate 325 MG TAB PO SCH (09:08)
[2021-05-12] MEDS: Carvedilol 3.125 MG TAB PO SCH ×2 (09:08→17:07)
[2021-05-12] MEDS: Furosemide 40 MG TAB PO SCH (09:08)
[2021-05-12] MEDS: Apixaban 5 MG TAB PO SCH ×2 (09:08→21:26)
[2021-05-12] MEDS: Famotidine 20 MG TAB PO SCH ×2 (09:08→21:26)
[2021-05-12] MEDS: Aspirin 81 mg Enteric Coated Tablet PO SCH (09:08)
[2021-05-12] MEDS: Acetaminophen 325 MG TAB PO PRN ×2 (09:09→17:08)
[2021-05-12] MEDS: HumaLOG 300 UNITS/3 ML VIAL SC PRN (17:07)
[2021-05-12] MEDS: Atorvastatin Calcium 40 MG TAB PO SCH (21:26)
[2021-05-13] MEDS: Levothyroxine Sodium 125 MCG TAB PO SCH (06:39)
[2021-05-13] MEDS: Mometasone/Formoterol 200/5 60 PUFF INH SCH (07:30)
[2021-05-13 11:07] VITALS: TEMP 97.4
[2021-05-13] MEDS: Aspirin 81 mg Enteric Coated Tablet PO SCH (11:08)
[2021-05-13] MEDS: Ferrous Sulfate 325 MG TAB PO SCH (11:08)
[2021-05-13] MEDS: Carvedilol 3.125 MG TAB PO SCH (11:08)
[2021-05-13] MEDS: Apixaban 5 MG TAB PO SCH (11:09)
[2021-05-13] MEDS: Furosemide 40 MG TAB PO SCH (11:09)
[2021-05-13] MEDS: Famotidine 20 MG TAB PO SCH (11:09)
[2021-05-13 11:24] VITALS: BP 147/94
[2021-05-13] MEDS ORDERED: Nitroglycerin 0.4 MG TAB (25 Tab Bottle) SL PRN (12:35)
== END 2021-05-13 14:45 | DRG 65 ==
LOC: CSHERS 18:12 → UNDOADMIN 22:42 → CSHTELE 22:42 → CSHERHOLD 05-08 07:58 → CSHTELE 05-08 07:59
PROVIDERS: ADMIT Family Medicine; ATTEND Internal Medicine
DX: I63.9 Cerebral infarction, unspecified (principal); I50.32 Chronic diastolic (congestive) heart failure; I13.0 Hypertensive heart and chronic kidney disease with heart failure and stage 1 through stage 4 chronic kidney disease, or unspecified chronic kidney disease; G81.94 Hemiplegia, unspecified affecting left nondominant side; I48.11 Longstanding persistent atrial fibrillation; I25.10 Atherosclerotic heart disease of native coronary artery without angina pectoris; J44.9 Chronic obstructive pulmonary disease, unspecified; N18.31 Chronic kidney disease, stage 3a; E78.5 Hyperlipidemia, unspecified; E11.22 Type 2 diabetes mellitus with diabetic chronic kidney disease; D50.9 Iron deficiency anemia, unspecified; I48.0 Paroxysmal atrial fibrillation; E83.42 Hypomagnesemia; E03.9 Hypothyroidism, unspecified; H40.9 Unspecified glaucoma; E11.51 Type 2 diabetes mellitus with diabetic peripheral angiopathy without gangrene; E11.65 Type 2 diabetes mellitus with hyperglycemia; Z20.822 Contact with and (suspected) exposure to COVID-19; Y92.002 Bathroom of unspecified non-institutional (private) residence as the place of occurrence of the external cause; Z88.8 Allergy status to other drugs, medicaments and biological substances; Z79.899 Other long term (current) drug therapy; Z79.51 Long term (current) use of inhaled steroids; Z79.01 Long term (current) use of anticoagulants; Z95.5 Presence of coronary angioplasty implant and graft; I25.2 Old myocardial infarction; Z90.710 Acquired absence of both cervix and uterus; Z87.891 Personal history of nicotine dependence; S20.222A Contusion of left back wall of thorax, initial encounter; W01.0XXA Fall on same level from slipping, tripping and stumbling without subsequent striking against object, initial encounter
CPT/HCPCS: 36415; 36416; 70450; 70496; 70498; 70551; 72125; 72131; 80048; 80053; 80061; 82274; 82728; 83735; 84484; 85025; 85610; 85730; 93005; 93010; 93306; 94640; 94664; 94760; J1815; J3475; J7620; U0003; U0005

== ENCOUNTER 2021-06-12 18:59 | Inpatient (IN) | payer MEDICARE, MEDICAID ==
[2021-06-12 20:51] LABS: #Monocytes 0.6 10x3/uL (0.0-1.1); #Neutrophils 8.9 10x3/uL (1.5-8.4); %Basophils 0.2 % (0.0-2.0); %Eosinophils 0.4 % (0.0-6.0); %Lymphocytes 6.2 % (18.0-47.0); %Neutrophils 86.7 % (40.0-75.0); Hemoglobin 10.7 g/dL (12.0-15.5); Mean Corpuscular Hemoglobin 21.2 pg (27.0-33.0); Mean Corpuscular Volume 66.3 fl (81.6-98.3); Platelet Count 341 10x3/uL (150-450); RBC Distribution Width 24.8 % (11.5-14.5); Red Blood Cell (RBC) Count 5.04 10x6/uL (3.90-5.03); White Blood Cell (WBC) Count 10.2 10x3/uL (3.5-10.5)
[2021-06-12 20:59] LABS: ALT (SGPT) 21 U/L (8-55); AST (SGOT) 30 U/L (5-34); Albumin 3.5 g/dL (3.4-4.8); Alkaline Phosphatase 90 U/L (40-110); Anion Gap 15 mmol/L (10-20); BUN (Urea Nitrogen) 13 mg/dL (9.8-20.1); Bilirubin, Total 0.7 mg/dL (0.2-1.2); Calc. Creatinine Clearance 0 mL/min (70-130); Calcium 9.5 mg/dL (7.8-10.44); Carbon Dioxide 23 mmol/L (23-31); Chloride 101 mmol/L (98-107); Globulin 5.2 g/dL (2.4-3.5); Glucose 206 mg/dL (83-110); Potassium 5.9 mmol/L (3.5-5.1); Protein, Total 8.7 g/dL (5.8-8.1); Sodium 133 mmol/L (136-145)
[2021-06-12 21:14] LABS: Digoxin 7.46 ng/mL (0.8-2.0)
[2021-06-12 21:37] LABS: Magnesium 1.6 mg/dL (1.6-2.6)
[2021-06-12] MEDS ORDERED: Dextrose 50% Abboject 50 ML SYRINGE SLOW IVP SCH (22:00)
[2021-06-12] MEDS ORDERED: Sodium Bicarb 50 MEQ/50 ML Abboject 8.4% SYRINGE IVP SCH (22:00)
[2021-06-12] MEDS ORDERED: Calcium Chloride 1 GM/10 ML Abboject SYRINGE IVP SCH (22:00)
[2021-06-12] MEDS ORDERED: Insulin Regular 300 UNITS/3 ML VIAL IVP SCH (22:00)
[2021-06-12] MEDS ORDERED: Sodium Chloride 0.9% 500 ML IVPB SCH (22:00)
[2021-06-12] MEDS ORDERED: Magnesium 2 GM/50 ML 2 GM in Premix Bag 1 BAG IVPB SCH (22:00)
[2021-06-12 22:14] LABS: Anisocytosis MODERATE=16-30 cells (100X) (0-5/hpf); Microcytosis MODERATE=15-30 cells (100X) (0-5/hpf); Poikilocytosis SLIGHT = 6-15 cells (100X) (0-5/hpf)
[2021-06-12 22:15] LABS: Ovalocytes SLIGHT = 2-5 cells (100X) (0-1/hpf); Platelet Morphology Comment Appears Adequate; Target Cells MODERATE= 6-15 cells (100X) (0-1/hpf)
[2021-06-12] MEDS ORDERED: Dextrose 5% in Water 1,000 ML IV PRN (23:32)
[2021-06-12] MEDS ORDERED: Calcium Carbonate 500 MG ChewTAB PO PRN (23:32)
[2021-06-12] MEDS ORDERED: Senokot S 8.6-50 MG TAB PO PRN (23:32)
[2021-06-12] MEDS ORDERED: Dextrose 50% Abboject 50 ML SYRINGE SLOW IVP PRN (23:32)
[2021-06-12] MEDS ORDERED: Ondansetron PF 4 MG/2 ML Vial IVP PRN (23:32)
[2021-06-12] MEDS ORDERED: Guaifenesin DM 100-10/5 ML UDCUP PO PRN (23:32)
[2021-06-12] MEDS ORDERED: Atropine Sulfate 1 mg/10 ml Syringe IVP PRN (23:34)
[2021-06-12] MEDS ORDERED: TICAGRELOR 90 MG TABLET PO SCH (23:59)
[2021-06-13 01:24] LABS: SARS-CoV-2 NAA Rapid Test DETECTED (NotDetected)
[2021-06-13 04:22] LABS: #Eosinphils 0.1 10x3/uL (0.0-0.5); #Monocytes 0.8 10x3/uL (0.0-1.1); #Neutrophils 6.4 10x3/uL (1.5-8.4); %Basophils 0.2 % (0.0-2.0); %Eosinophils 0.7 % (0.0-6.0); %Lymphocytes 13.9 % (18.0-47.0); %Monocytes 9.2 % (0.0-10.0); %Neutrophils 75.6 % (40.0-75.0); Hemoglobin 9.1 g/dL (12.0-15.5); Mean Corpuscular HGB CONC 31.8 g/dL (32.0-36.0); Mean Corpuscular Volume 65.9 fl (81.6-98.3); Mean Platelet Volume 10.4 fl (7.4-10.4); Platelet Count 313 10x3/uL (150-450); RBC Distribution Width 24.2 % (11.5-14.5); Red Blood Cell (RBC) Count 4.34 10x6/uL (3.90-5.03); White Blood Cell (WBC) Count 8.5 10x3/uL (3.5-10.5)
[2021-06-13 04:39] LABS: Iron 19 ug/dL (50-170); Iron Binding Capacity, Total 234 mcg/dL (265-497)
[2021-06-13 04:41] LABS: Anion Gap 11 mmol/L (10-20); BUN (Urea Nitrogen) 10 mg/dL (9.8-20.1); Calc. Creatinine Clearance 63 mL/min (70-130); Calcium 9.6 mg/dL (7.8-10.44); Carbon Dioxide 27 mmol/L (23-31); Chloride 103 mmol/L (98-107); Glucose 160 mg/dL (83-110); Iron 18 ug/dL (50-170); Iron Binding Capacity, Total 235 mcg/dL (265-497); Sodium 137 mmol/L (136-145)
[2021-06-13 04:54] LABS: Ferritin 60.11 ng/mL (10-291); Thyroid Stimulating Hormone 0.0516 uIU/mL (0.35-4.94)
[2021-06-13 05:26] VITALS: BMI 24.8
[2021-06-13] MEDS: Levothyroxine Sodium 125 MCG TAB PO SCH (06:10)
[2021-06-13] MEDS: Mometasone/Formoterol 200/5 60 PUFF INH SCH ×2 (08:34→18:52)
[2021-06-13] MEDS ORDERED: Apixaban 5 MG TAB PO SCH (09:00)
[2021-06-13] MEDS ORDERED: LOTEPREDNOL ETABONATE EA EYE SCH (09:00)
[2021-06-13] MEDS: Ferrous Sulfate 325 MG TAB PO SCH (09:08)
[2021-06-13] MEDS: Alogliptin 25 MG TAB PO SCH (09:10)
[2021-06-13] MEDS: Aspirin 81 mg Enteric Coated Tablet PO SCH (09:10)
[2021-06-13] MEDS: Pantoprazole 40 MG GRANULES PACKET PO SCH (09:11)
[2021-06-13] MEDS: TICAGRELOR 90 MG TABLET PO SCH ×2 (09:12→21:55)
[2021-06-13] MEDS: Cholecalciferol 1,000 UNITS (25 MCG) TAB PO SCH (09:13)
[2021-06-13] MEDS: Atorvastatin Calcium 40 MG TAB PO SCH (09:14)
[2021-06-13] MEDS: Oxybutynin ER 5 MG TAB PO SCH (09:21)
[2021-06-13 09:39] LABS: Anion Gap 12 mmol/L (10-20); BUN (Urea Nitrogen) 9 mg/dL (9.8-20.1); Calc. Creatinine Clearance 68 mL/min (70-130); Calcium 9.1 mg/dL (7.8-10.44); Carbon Dioxide 25 mmol/L (23-31); Chloride 104 mmol/L (98-107); Glucose 119 mg/dL (83-110); Potassium 3.5 mmol/L (3.5-5.1); Sodium 137 mmol/L (136-145)
[2021-06-13 09:46] LABS: Digoxin 3.64 ng/mL (0.8-2.0)
[2021-06-13 13:58] LABS: Magnesium 1.8 mg/dL (1.6-2.6)
[2021-06-13] MEDS ORDERED: Magnesium 2 GM/50 ML 2 GM in Premix Bag 1 BAG IVPB SCH (14:30)
[2021-06-13] MEDS: HumaLOG 300 UNITS/3 ML VIAL SC PRN (16:21)
[2021-06-13] MEDS ORDERED: Potassium Chloride 20 MEQ TAB PO SCH (20:00)
[2021-06-13] MEDS: Enoxaparin Sodium 80 MG/0.8 ML SYRINGE SC SCH (21:55)
[2021-06-13] MEDS: Latanoprost 0.005% Ophth Soln 2.5 ml Bottle EA EYE SCH (21:55)
[2021-06-14] MEDS: HumaLOG 300 UNITS/3 ML VIAL SC PRN ×2 (01:23→16:55)
[2021-06-14 04:00] LABS: #Eosinphils 0.2 10x3/uL (0.0-0.5); #Monocytes 0.9 10x3/uL (0.0-1.1); #Neutrophils 7.5 10x3/uL (1.5-8.4); %Basophils 0.3 % (0.0-2.0); %Eosinophils 2.2 % (0.0-6.0); %Lymphocytes 12.1 % (18.0-47.0); %Monocytes 8.8 % (0.0-10.0); %Neutrophils 76.2 % (40.0-75.0); Hemoglobin 10.4 g/dL (12.0-15.5); Mean Corpuscular HGB CONC 32.1 g/dL (32.0-36.0); Mean Corpuscular Hemoglobin 21.2 pg (27.0-33.0); Mean Corpuscular Volume 66.1 fl (81.6-98.3); Platelet Count 313 10x3/uL (150-450); RBC Distribution Width 24.7 % (11.5-14.5); White Blood Cell (WBC) Count 9.9 10x3/uL (3.5-10.5)
[2021-06-14 04:16] LABS: Digoxin 4.94 ng/mL (0.8-2.0)
[2021-06-14 04:17] LABS: ALT (SGPT) 15 U/L (8-55); AST (SGOT) 20 U/L (5-34); Albumin 3.1 g/dL (3.4-4.8); Alkaline Phosphatase 84 U/L (40-110); Anion Gap 15 mmol/L (10-20); BUN (Urea Nitrogen) 9 mg/dL (9.8-20.1); Bilirubin, Total 0.4 mg/dL (0.2-1.2); CRP (Inflammatory) 0.64 mg/dL (= or < 0.5); Calc. Creatinine Clearance 55 mL/min (70-130); Calcium 9.2 mg/dL (7.8-10.44); Carbon Dioxide 24 mmol/L (23-31); Chloride 102 mmol/L (98-107); Globulin 4.6 g/dL (2.4-3.5); Glucose 213 mg/dL (83-110); Magnesium 2.4 mg/dL (1.6-2.6); Phosphorus 2.5 mg/dL (2.3-4.7); Potassium 4.4 mmol/L (3.5-5.1); Protein, Total 7.7 g/dL (5.8-8.1); Sodium 137 mmol/L (136-145)
[2021-06-14] MEDS: Levothyroxine Sodium 125 MCG TAB PO SCH (06:40)
[2021-06-14] MEDS: Mometasone/Formoterol 200/5 60 PUFF INH SCH ×2 (07:27→19:00)
[2021-06-14] MEDS ORDERED: FLU VACC QS2021-22(65YR UP)/PF 240 MCG/0.7 ML SYRINGE IM ONE (09:00)
[2021-06-14] MEDS: Ferrous Sulfate 325 MG TAB PO SCH (09:15)
[2021-06-14] MEDS: Alogliptin 25 MG TAB PO SCH (09:16)
[2021-06-14] MEDS: Cholecalciferol 1,000 UNITS (25 MCG) TAB PO SCH (09:17)
[2021-06-14] MEDS: Aspirin 81 mg Enteric Coated Tablet PO SCH (09:17)
[2021-06-14] MEDS: Enoxaparin Sodium 80 MG/0.8 ML SYRINGE SC SCH ×2 (09:17→20:41)
[2021-06-14] MEDS: hydrALAZINE 25 MG TAB PO SCH ×3 (09:19→20:42)
[2021-06-14] MEDS: Oxybutynin ER 5 MG TAB PO SCH (09:21)
[2021-06-14] MEDS: TICAGRELOR 90 MG TABLET PO SCH ×2 (09:22→20:42)
[2021-06-14] MEDS: Acetaminophen 325 MG TAB PO PRN (09:52)
[2021-06-14] MEDS: Atorvastatin Calcium 40 MG TAB PO SCH (09:52)
[2021-06-14] MEDS: Pantoprazole 40 MG GRANULES PACKET PO SCH (09:55)
[2021-06-14] MEDS: Latanoprost 0.005% Ophth Soln 2.5 ml Bottle EA EYE SCH (20:52)
[2021-06-15 05:44] LABS: Hemoglobin 10.1 g/dL (12.0-15.5); Mean Corpuscular HGB CONC 32.7 g/dL (32.0-36.0); Mean Corpuscular Hemoglobin 21.3 pg (27.0-33.0); Mean Corpuscular Volume 65.2 fl (81.6-98.3); Platelet Count 345 10x3/uL (150-450); RBC Distribution Width 24.3 % (11.5-14.5); Red Blood Cell (RBC) Count 4.74 10x6/uL (3.90-5.03); White Blood Cell (WBC) Count 8.4 10x3/uL (3.5-10.5)
[2021-06-15 06:05] LABS: ALT (SGPT) 13 U/L (8-55); AST (SGOT) 14 U/L (5-34); Albumin 2.9 g/dL (3.4-4.8); Alkaline Phosphatase 87 U/L (40-110); Anion Gap 13 mmol/L (10-20); BUN (Urea Nitrogen) 8 mg/dL (9.8-20.1); Bilirubin, Total 0.4 mg/dL (0.2-1.2); Calc. Creatinine Clearance 70 mL/min (70-130); Calcium 8.8 mg/dL (7.8-10.44); Carbon Dioxide 28 mmol/L (23-31); Chloride 102 mmol/L (98-107); Globulin 4.2 g/dL (2.4-3.5); Glucose 127 mg/dL (83-110); Magnesium 1.4 mg/dL (1.6-2.6); Phosphorus 2.7 mg/dL (2.3-4.7); Protein, Total 7.1 g/dL (5.8-8.1); Sodium 139 mmol/L (136-145)
[2021-06-15 06:09] LABS: Digoxin 3.62 ng/mL (0.8-2.0)
[2021-06-15] MEDS ORDERED: Magnesium 2 GM/50 ML 4 GM in Premix Bag 1 BAG IVPB SCH (06:30)
[2021-06-15] MEDS: Mometasone/Formoterol 200/5 60 PUFF INH SCH ×2 (07:02→19:10)
[2021-06-15] MEDS: Levothyroxine Sodium 125 MCG TAB PO SCH (07:08)
[2021-06-15 07:27] LABS: Anisocytosis MODERATE=16-30 cells (100X) (0-5/hpf); Microcytosis MARKED = >30 cells (100X) (0-5/hpf); Ovalocytes SLIGHT = 2-5 cells (100X) (0-1/hpf); Spherocytes SLIGHT = 1-5 cells (100X) (None Seen); Target Cells MODERATE= 6-15 cells (100X) (0-1/hpf)
[2021-06-15 07:28] LABS: Platelet Morphology Comment Appears Adequate
[2021-06-15 07:31] LABS: #Eosinphils 0.2 10x3/uL (0.0-0.5); #Monocytes 0.8 10x3/uL (0.0-1.1); #Neutrophils 6.2 10x3/uL (1.5-8.4); %Basophils 0.2 % (0.0-2.0); %Eosinophils 2.1 % (0.0-6.0); %Lymphocytes 13.5 % (18.0-47.0); %Neutrophils 73.6 % (40.0-75.0)
[2021-06-15] MEDS: Ferrous Sulfate 325 MG TAB PO SCH (09:01)
[2021-06-15] MEDS: Enoxaparin Sodium 80 MG/0.8 ML SYRINGE SC SCH ×2 (09:02→21:17)
[2021-06-15] MEDS: hydrALAZINE 25 MG TAB PO SCH ×3 (09:02→21:18)
[2021-06-15] MEDS: Atorvastatin Calcium 40 MG TAB PO SCH (09:02)
[2021-06-15] MEDS: Aspirin 81 mg Enteric Coated Tablet PO SCH (09:02)
[2021-06-15] MEDS: Cholecalciferol 1,000 UNITS (25 MCG) TAB PO SCH (09:02)
[2021-06-15] MEDS: Alogliptin 25 MG TAB PO SCH (09:02)
[2021-06-15] MEDS: Oxybutynin ER 5 MG TAB PO SCH (09:03)
[2021-06-15] MEDS: TICAGRELOR 90 MG TABLET PO SCH ×2 (09:04→21:20)
[2021-06-15] MEDS: HumaLOG 300 UNITS/3 ML VIAL SC PRN (12:35)
[2021-06-15] MEDS: Latanoprost 0.005% Ophth Soln 2.5 ml Bottle EA EYE SCH (21:31)
[2021-06-15] MEDS: Acetaminophen 325 MG TAB PO PRN (22:19)
[2021-06-16] MEDS ORDERED: diphenhydrAMINE 25 MG CAP PO SCH (00:30)
[2021-06-16 05:31] LABS: Digoxin 3.01 ng/mL (0.8-2.0)
[2021-06-16 05:34] LABS: ALT (SGPT) 12 U/L (8-55); AST (SGOT) 15 U/L (5-34); Albumin 2.8 g/dL (3.4-4.8); Alkaline Phosphatase 80 U/L (40-110); Anion Gap 13 mmol/L (10-20); BUN (Urea Nitrogen) 7 mg/dL (9.8-20.1); Bilirubin, Total 0.5 mg/dL (0.2-1.2); Calc. Creatinine Clearance 73 mL/min (70-130); Calcium 8.5 mg/dL (7.8-10.44); Carbon Dioxide 27 mmol/L (23-31); Chloride 102 mmol/L (98-107); Globulin 4.1 g/dL (2.4-3.5); Glucose 131 mg/dL (83-110); Magnesium 1.5 mg/dL (1.6-2.6); Phosphorus 2.5 mg/dL (2.3-4.7); Protein, Total 6.9 g/dL (5.8-8.1); Sodium 138 mmol/L (136-145)
[2021-06-16] MEDS: Levothyroxine Sodium 125 MCG TAB PO SCH (06:03)
[2021-06-16 06:11] LABS: #Eosinphils 0.1 10x3/uL (0.0-0.5); #Neutrophils 7.2 10x3/uL (1.5-8.4); %Basophils 0.2 % (0.0-2.0); %Eosinophils 0.7 % (0.0-6.0); %Lymphocytes 10.5 % (18.0-47.0); %Monocytes 10.8 % (0.0-10.0); %Neutrophils 77.3 % (40.0-75.0); Hemoglobin 9.7 g/dL (12.0-15.5); Mean Corpuscular HGB CONC 31.8 g/dL (32.0-36.0); Mean Corpuscular Volume 66.2 fl (81.6-98.3); Platelet Count 358 10x3/uL (150-450); RBC Distribution Width 24.9 % (11.5-14.5); Red Blood Cell (RBC) Count 4.61 10x6/uL (3.90-5.03); White Blood Cell (WBC) Count 9.4 10x3/uL (3.5-10.5)
[2021-06-16] MEDS: Magnesium 2 GM/50 ML 2 GM in Premix Bag 1 BAG IVPB SCH ×2 (06:19→09:11)
[2021-06-16] MEDS: Mometasone/Formoterol 200/5 60 PUFF INH SCH ×2 (06:45→19:44)
[2021-06-16 07:15] LABS: Anisocytosis MODERATE=16-30 cells (100X) (0-5/hpf); Microcytosis MODERATE=15-30 cells (100X) (0-5/hpf)
[2021-06-16 07:16] LABS: Ovalocytes SLIGHT = 2-5 cells (100X) (0-1/hpf); Platelet Morphology Comment Appears Adequate; Schistocytes SLIGHT = 2-5 cells (100X) (0-1/hpf); Target Cells MODERATE= 6-15 cells (100X) (0-1/hpf)
[2021-06-16] MEDS ORDERED: Clotrimazole 1% Cream 15 GM TUBE TOP SCH (09:30)
[2021-06-16] MEDS: Magnesium Oxide 400 MG TAB PO SCH ×2 (10:38→20:52)
[2021-06-16] MEDS: Enoxaparin Sodium 80 MG/0.8 ML SYRINGE SC SCH ×2 (10:38→20:51)
[2021-06-16] MEDS: Alogliptin 25 MG TAB PO SCH (10:38)
[2021-06-16] MEDS: hydrALAZINE 25 MG TAB PO SCH ×3 (10:38→20:50)
[2021-06-16] MEDS: Aspirin 81 mg Enteric Coated Tablet PO SCH (10:38)
[2021-06-16] MEDS: Atorvastatin Calcium 40 MG TAB PO SCH (10:38)
[2021-06-16] MEDS: Cholecalciferol 1,000 UNITS (25 MCG) TAB PO SCH (10:38)
[2021-06-16] MEDS: Ferrous Sulfate 325 MG TAB PO SCH (10:38)
[2021-06-16] MEDS: Oxybutynin ER 5 MG TAB PO SCH (10:39)
[2021-06-16] MEDS: TICAGRELOR 90 MG TABLET PO SCH ×2 (10:39→20:51)
[2021-06-16] MEDS: Clotrimazole 1% Cream 15 GM TUBE TOP SCH (20:52)
[2021-06-16] MEDS: Latanoprost 0.005% Ophth Soln 2.5 ml Bottle EA EYE SCH (20:52)
[2021-06-17] MEDS: Calamine/Zinc Oxide 177 ML LOTION TP SCH ×4 (00:12→19:56)
[2021-06-17 06:01] LABS: #Eosinphils 0.1 10x3/uL (0.0-0.5); #Neutrophils 7.1 10x3/uL (1.5-8.4); %Basophils 0.3 % (0.0-2.0); %Eosinophils 1.5 % (0.0-6.0); %Lymphocytes 11.4 % (18.0-47.0); %Monocytes 10.4 % (0.0-10.0); %Neutrophils 75.8 % (40.0-75.0); ALT (SGPT) 11 U/L (8-55); AST (SGOT) 16 U/L (5-34); Albumin 2.8 g/dL (3.4-4.8); Alkaline Phosphatase 77 U/L (40-110); Anion Gap 12 mmol/L (10-20); BUN (Urea Nitrogen) 6 mg/dL (9.8-20.1); Bilirubin, Total 0.5 mg/dL (0.2-1.2); Calc. Creatinine Clearance 75 mL/min (70-130); Calcium 8.4 mg/dL (7.8-10.44); Carbon Dioxide 27 mmol/L (23-31); Chloride 105 mmol/L (98-107); Globulin 4.1 g/dL (2.4-3.5); Glucose 109 mg/dL (83-110); Hemoglobin 9.9 g/dL (12.0-15.5); Magnesium 1.8 mg/dL (1.6-2.6); Mean Corpuscular HGB CONC 32.7 g/dL (32.0-36.0); Mean Corpuscular Hemoglobin 21.3 pg (27.0-33.0); Mean Corpuscular Volume 65.3 fl (81.6-98.3); Phosphorus 2.2 mg/dL (2.3-4.7); Platelet Count 343 10x3/uL (150-450); Potassium 3.9 mmol/L (3.5-5.1); Protein, Total 6.9 g/dL (5.8-8.1); RBC Distribution Width 24.8 % (11.5-14.5); Red Blood Cell (RBC) Count 4.64 10x6/uL (3.90-5.03); Sodium 140 mmol/L (136-145); White Blood Cell (WBC) Count 9.3 10x3/uL (3.5-10.5)
[2021-06-17] MEDS ORDERED: Magnesium 2 GM/50 ML 2 GM in Premix Bag 1 BAG IVPB SCH (06:15)
[2021-06-17] MEDS: Levothyroxine Sodium 125 MCG TAB PO SCH (06:20)
[2021-06-17] MEDS: Mometasone/Formoterol 200/5 60 PUFF INH SCH ×2 (07:45→19:52)
[2021-06-17] MEDS: Alogliptin 25 MG TAB PO SCH (09:19)
[2021-06-17] MEDS: hydrALAZINE 25 MG TAB PO SCH ×3 (09:19→19:54)
[2021-06-17] MEDS: Cholecalciferol 1,000 UNITS (25 MCG) TAB PO SCH (09:19)
[2021-06-17] MEDS: Aspirin 81 mg Enteric Coated Tablet PO SCH (09:19)
[2021-06-17] MEDS: Atorvastatin Calcium 40 MG TAB PO SCH (09:20)
[2021-06-17] MEDS: Enoxaparin Sodium 80 MG/0.8 ML SYRINGE SC SCH (09:20)
[2021-06-17] MEDS: Ferrous Sulfate 325 MG TAB PO SCH (09:20)
[2021-06-17] MEDS: TICAGRELOR 90 MG TABLET PO SCH ×2 (09:20→19:55)
[2021-06-17] MEDS: Magnesium Oxide 400 MG TAB PO SCH ×2 (09:20→19:55)
[2021-06-17] MEDS: Clotrimazole 1% Cream 15 GM TUBE TOP SCH ×2 (09:22→19:55)
[2021-06-17] MEDS: Oxybutynin ER 5 MG TAB PO SCH (09:25)
[2021-06-17] MEDS: HumaLOG 300 UNITS/3 ML VIAL SC PRN (12:48)
[2021-06-17] MEDS: Apixaban 5 MG TAB PO SCH (19:55)
[2021-06-17] MEDS: Latanoprost 0.005% Ophth Soln 2.5 ml Bottle EA EYE SCH (19:56)
[2021-06-17] MEDS: Nitroglycerin 0.4 MG TAB (25 Tab Bottle) SL PRN ×2 (21:20→21:31)
[2021-06-18 05:07] LABS: #Eosinphils 0.2 10x3/uL (0.0-0.5); #Neutrophils 6.9 10x3/uL (1.5-8.4); %Basophils 0.3 % (0.0-2.0); %Eosinophils 1.8 % (0.0-6.0); %Lymphocytes 10.9 % (18.0-47.0); %Monocytes 11.4 % (0.0-10.0); %Neutrophils 75.1 % (40.0-75.0); Hemoglobin 9.2 g/dL (12.0-15.5); Mean Corpuscular HGB CONC 31.6 g/dL (32.0-36.0); Mean Corpuscular Hemoglobin 20.8 pg (27.0-33.0); Mean Corpuscular Volume 65.7 fl (81.6-98.3); Platelet Count 360 10x3/uL (150-450); RBC Distribution Width 24.1 % (11.5-14.5); Red Blood Cell (RBC) Count 4.43 10x6/uL (3.90-5.03); White Blood Cell (WBC) Count 9.1 10x3/uL (3.5-10.5)
[2021-06-18 05:15] LABS: ALT (SGPT) 13 U/L (8-55); AST (SGOT) 17 U/L (5-34); Albumin 2.7 g/dL (3.4-4.8); Alkaline Phosphatase 75 U/L (40-110); Anion Gap 11 mmol/L (10-20); BUN (Urea Nitrogen) 6 mg/dL (9.8-20.1); Bilirubin, Total 0.4 mg/dL (0.2-1.2); Calc. Creatinine Clearance 73 mL/min (70-130); Calcium 8.4 mg/dL (7.8-10.44); Carbon Dioxide 26 mmol/L (23-31); Chloride 104 mmol/L (98-107); Globulin 4.1 g/dL (2.4-3.5); Glucose 112 mg/dL (83-110); Magnesium 1.7 mg/dL (1.6-2.6); Phosphorus 2.3 mg/dL (2.3-4.7); Potassium 3.9 mmol/L (3.5-5.1); Protein, Total 6.8 g/dL (5.8-8.1); Sodium 137 mmol/L (136-145)
[2021-06-18 05:24] LABS: Digoxin 1.71 ng/mL (0.8-2.0)
[2021-06-18] MEDS: Levothyroxine Sodium 125 MCG TAB PO SCH (06:02)
[2021-06-18] MEDS: Mometasone/Formoterol 200/5 60 PUFF INH SCH ×2 (07:45→21:50)
[2021-06-18] MEDS: hydrALAZINE 25 MG TAB PO SCH ×3 (08:30→20:14)
[2021-06-18] MEDS: Alogliptin 25 MG TAB PO SCH (08:31)
[2021-06-18] MEDS: Ferrous Sulfate 325 MG TAB PO SCH (08:31)
[2021-06-18] MEDS: Oxybutynin ER 5 MG TAB PO SCH (08:31)
[2021-06-18] MEDS: Furosemide 40 MG TAB PO SCH (08:31)
[2021-06-18] MEDS: Magnesium Oxide 400 MG TAB PO SCH ×2 (08:31→20:14)
[2021-06-18] MEDS: TICAGRELOR 90 MG TABLET PO SCH ×2 (08:31→20:14)
[2021-06-18] MEDS: Calamine/Zinc Oxide 177 ML LOTION TP SCH ×3 (08:32→20:04)
[2021-06-18] MEDS: Apixaban 5 MG TAB PO SCH ×2 (08:32→20:14)
[2021-06-18] MEDS: Aspirin 81 mg Enteric Coated Tablet PO SCH (08:32)
[2021-06-18] MEDS: Cholecalciferol 1,000 UNITS (25 MCG) TAB PO SCH (08:32)
[2021-06-18] MEDS: Atorvastatin Calcium 40 MG TAB PO SCH (08:32)
[2021-06-18] MEDS: Clotrimazole 1% Cream 15 GM TUBE TOP SCH ×2 (08:32→20:14)
[2021-06-18] MEDS ORDERED: Carvedilol 6.25 MG TAB PO SCH (09:30)
[2021-06-18] MEDS: HumaLOG 300 UNITS/3 ML VIAL SC PRN ×2 (12:35→21:34)
[2021-06-18] MEDS: Carvedilol 6.25 MG TAB PO SCH (16:34)
[2021-06-18] MEDS: Latanoprost 0.005% Ophth Soln 2.5 ml Bottle EA EYE SCH (20:04)
[2021-06-19 04:59] LABS: Platelet Count 382 10x3/uL (150-450)
[2021-06-19 05:04] LABS: #Eosinphils 0.2 10x3/uL (0.0-0.5); %Basophils 0.2 % (0.0-2.0); %Eosinophils 2.2 % (0.0-6.0); %Lymphocytes 12.8 % (18.0-47.0); %Monocytes 12.3 % (0.0-10.0); %Neutrophils 71.5 % (40.0-75.0); Hemoglobin 9.8 g/dL (12.0-15.5); Mean Corpuscular HGB CONC 32.2 g/dL (32.0-36.0); Mean Corpuscular Hemoglobin 21.3 pg (27.0-33.0); Mean Corpuscular Volume 65.9 fl (81.6-98.3); Mean Platelet Volume 10.4 fl (7.4-10.4); RBC Distribution Width 24.6 % (11.5-14.5); Red Blood Cell (RBC) Count 4.61 10x6/uL (3.90-5.03); White Blood Cell (WBC) Count 8.4 10x3/uL (3.5-10.5)
[2021-06-19 05:08] LABS: ALT (SGPT) 16 U/L (8-55); AST (SGOT) 22 U/L (5-34); Albumin 2.8 g/dL (3.4-4.8); Alkaline Phosphatase 77 U/L (40-110); Anion Gap 13 mmol/L (10-20); BUN (Urea Nitrogen) 11 mg/dL (9.8-20.1); Bilirubin, Total 0.5 mg/dL (0.2-1.2); Calc. Creatinine Clearance 85 mL/min (70-130); Calcium 8.6 mg/dL (7.8-10.44); Carbon Dioxide 25 mmol/L (23-31); Chloride 103 mmol/L (98-107); Globulin 4.1 g/dL (2.4-3.5); Glucose 107 mg/dL (83-110); Magnesium 1.5 mg/dL (1.6-2.6); Phosphorus 2.9 mg/dL (2.3-4.7); Potassium 3.7 mmol/L (3.5-5.1); Protein, Total 6.9 g/dL (5.8-8.1); Sodium 137 mmol/L (136-145)
[2021-06-19] MEDS: Levothyroxine Sodium 125 MCG TAB PO SCH (05:26)
[2021-06-19] MEDS: Mometasone/Formoterol 200/5 60 PUFF INH SCH ×2 (07:45→20:35)
[2021-06-19] MEDS: Furosemide 40 MG TAB PO SCH (09:16)
[2021-06-19] MEDS: Atorvastatin Calcium 40 MG TAB PO SCH (09:16)
[2021-06-19] MEDS: Oxybutynin ER 5 MG TAB PO SCH (09:16)
[2021-06-19] MEDS: Carvedilol 6.25 MG TAB PO SCH ×2 (09:17→10:15)
[2021-06-19] MEDS: Alogliptin 25 MG TAB PO SCH (09:17)
[2021-06-19] MEDS: Magnesium Oxide 400 MG TAB PO SCH ×2 (09:17→21:13)
[2021-06-19] MEDS: TICAGRELOR 90 MG TABLET PO SCH ×2 (09:17→21:12)
[2021-06-19] MEDS: Cholecalciferol 1,000 UNITS (25 MCG) TAB PO SCH (09:18)
[2021-06-19] MEDS: Apixaban 5 MG TAB PO SCH ×2 (09:18→21:13)
[2021-06-19] MEDS: Aspirin 81 mg Enteric Coated Tablet PO SCH (09:18)
[2021-06-19] MEDS: Ferrous Sulfate 325 MG TAB PO SCH (09:18)
[2021-06-19] MEDS: hydrALAZINE 25 MG TAB PO SCH ×3 (09:18→21:13)
[2021-06-19] MEDS: Acetaminophen 325 MG TAB PO PRN ×2 (09:29→16:16)
[2021-06-19] MEDS ORDERED: Carvedilol 12.5 MG TAB PO SCH (09:45)
[2021-06-19] MEDS ORDERED: Gabapentin 300 MG CAP PO SCH (09:45)
[2021-06-19] MEDS: Clotrimazole 1% Cream 15 GM TUBE TOP SCH ×2 (09:45→21:12)
[2021-06-19] MEDS: Calamine/Zinc Oxide 177 ML LOTION TP SCH ×3 (09:46→21:11)
[2021-06-19] MEDS: HumaLOG 300 UNITS/3 ML VIAL SC PRN (13:01)
[2021-06-19] MEDS: Carvedilol 12.5 MG TAB PO SCH (16:14)
[2021-06-19] MEDS: Gabapentin 300 MG CAP PO SCH (21:12)
[2021-06-19] MEDS: Latanoprost 0.005% Ophth Soln 2.5 ml Bottle EA EYE SCH (21:15)
[2021-06-20 04:16] LABS: #Eosinphils 0.2 10x3/uL (0.0-0.5); #Neutrophils 5.4 10x3/uL (1.5-8.4); %Basophils 0.4 % (0.0-2.0); %Eosinophils 2.5 % (0.0-6.0); %Lymphocytes 14.8 % (18.0-47.0); %Monocytes 12.3 % (0.0-10.0); %Neutrophils 68.6 % (40.0-75.0); Mean Corpuscular HGB CONC 32.5 g/dL (32.0-36.0); Mean Corpuscular Hemoglobin 21.3 pg (27.0-33.0); Mean Corpuscular Volume 65.7 fl (81.6-98.3); Platelet Count 344 10x3/uL (150-450); RBC Distribution Width 24.4 % (11.5-14.5); Red Blood Cell (RBC) Count 4.69 10x6/uL (3.90-5.03); White Blood Cell (WBC) Count 7.9 10x3/uL (3.5-10.5)
[2021-06-20 04:29] LABS: ALT (SGPT) 16 U/L (8-55); AST (SGOT) 19 U/L (5-34); Albumin 2.8 g/dL (3.4-4.8); Alkaline Phosphatase 82 U/L (40-110); Anion Gap 15 mmol/L (10-20); BUN (Urea Nitrogen) 19 mg/dL (9.8-20.1); Bilirubin, Total 0.4 mg/dL (0.2-1.2); Calc. Creatinine Clearance 74 mL/min (70-130); Calcium 8.9 mg/dL (7.8-10.44); Carbon Dioxide 25 mmol/L (23-31); Chloride 98 mmol/L (98-107); Globulin 4.1 g/dL (2.4-3.5); Glucose 132 mg/dL (83-110); Magnesium 1.5 mg/dL (1.6-2.6); Phosphorus 3.9 mg/dL (2.3-4.7); Potassium 3.5 mmol/L (3.5-5.1); Protein, Total 6.9 g/dL (5.8-8.1); Sodium 134 mmol/L (136-145)
[2021-06-20 04:48] LABS: Platelet Morphology Comment Appears Adequate
[2021-06-20 04:50] LABS: Anisocytosis SLIGHT = 6-15 cells (100X) (0-5/hpf); Elliptocytes SLIGHT = 2-5 cells (100X) (0-1/hpf); Hypochromia SLIGHT = 6-15 cells (100X) (0-5/hpf); Macrocytosis SLIGHT = 6-15 cells (100X) (0-5/hpf); Microcytosis SLIGHT = 6-15 cells (100X) (0-5/hpf); Polychromasia SLIGHT = 2-3 cells (100X) (0-2/hpf); Target Cells SLIGHT = 2-5 cells (100X) (0-1/hpf)
[2021-06-20] MEDS: Levothyroxine Sodium 125 MCG TAB PO SCH (06:08)
[2021-06-20] MEDS: Mometasone/Formoterol 200/5 60 PUFF INH SCH ×2 (07:59→18:35)
[2021-06-20] MEDS ORDERED: Magnesium Sulfate 4 GM in Sodium Chloride 0.9% 250 ML 250 ML IVPB SCH (08:00)
[2021-06-20] MEDS: hydrALAZINE 25 MG TAB PO SCH ×3 (09:20→22:15)
[2021-06-20] MEDS: Aspirin 81 mg Enteric Coated Tablet PO SCH (09:20)
[2021-06-20] MEDS: Ferrous Sulfate 325 MG TAB PO SCH (09:21)
[2021-06-20] MEDS: Atorvastatin Calcium 40 MG TAB PO SCH (09:21)
[2021-06-20] MEDS: TICAGRELOR 90 MG TABLET PO SCH (09:21)
[2021-06-20] MEDS: Gabapentin 300 MG CAP PO SCH ×2 (09:22→22:14)
[2021-06-20] MEDS: Furosemide 40 MG TAB PO SCH (09:22)
[2021-06-20] MEDS: Alogliptin 25 MG TAB PO SCH (09:23)
[2021-06-20] MEDS: Apixaban 5 MG TAB PO SCH (09:23)
[2021-06-20] MEDS: Magnesium Oxide 400 MG TAB PO SCH ×2 (09:23→22:34)
[2021-06-20] MEDS: Carvedilol 12.5 MG TAB PO SCH ×2 (09:23→17:11)
[2021-06-20] MEDS: Cholecalciferol 1,000 UNITS (25 MCG) TAB PO SCH (09:23)
[2021-06-20] MEDS: Calamine/Zinc Oxide 177 ML LOTION TP SCH ×3 (09:25→22:21)
[2021-06-20] MEDS ORDERED: hydrALAZINE 20 MG/ML VIAL SLOW IVP PRN (12:31)
[2021-06-20] MEDS: Clotrimazole 1% Cream 15 GM TUBE TOP SCH ×2 (12:41→22:22)
[2021-06-20] MEDS: Oxybutynin ER 5 MG TAB PO SCH (12:42)
[2021-06-20] MEDS: HumaLOG 300 UNITS/3 ML VIAL SC PRN ×2 (12:43→22:33)
[2021-06-20] MEDS ORDERED: hydrALAZINE 20 MG/ML VIAL SLOW IVP SCH (12:45)
[2021-06-20] MEDS: Enoxaparin Sodium 80 MG/0.8 ML SYRINGE SC SCH (22:14)
[2021-06-20] MEDS: Latanoprost 0.005% Ophth Soln 2.5 ml Bottle EA EYE SCH (22:35)
[2021-06-21] MEDS: Levothyroxine Sodium 125 MCG TAB PO SCH (05:59)
[2021-06-21] MEDS: Mometasone/Formoterol 200/5 60 PUFF INH SCH (07:10)
[2021-06-21] MEDS: Enoxaparin Sodium 80 MG/0.8 ML SYRINGE SC SCH (08:26)
[2021-06-21] MEDS: Carvedilol 12.5 MG TAB PO SCH ×2 (08:27→16:32)
[2021-06-21] MEDS: hydrALAZINE 25 MG TAB PO SCH ×2 (08:27→16:32)
[2021-06-21] MEDS: Furosemide 40 MG TAB PO SCH (08:27)
[2021-06-21] MEDS: Gabapentin 300 MG CAP PO SCH (08:27)
[2021-06-21] MEDS: Alogliptin 25 MG TAB PO SCH (08:28)
[2021-06-21] MEDS: Ferrous Sulfate 325 MG TAB PO SCH (08:28)
[2021-06-21] MEDS: Magnesium Oxide 400 MG TAB PO SCH (08:28)
[2021-06-21] MEDS: Atorvastatin Calcium 40 MG TAB PO SCH (08:28)
[2021-06-21] MEDS: Cholecalciferol 1,000 UNITS (25 MCG) TAB PO SCH (08:28)
[2021-06-21] MEDS: Oxybutynin ER 5 MG TAB PO SCH (08:28)
[2021-06-21 08:55] LABS: Anion Gap 15 mmol/L (10-20); BUN (Urea Nitrogen) 15 mg/dL (9.8-20.1); Calc. Creatinine Clearance 71 mL/min (70-130); Calcium 8.6 mg/dL (7.8-10.44); Carbon Dioxide 26 mmol/L (23-31); Chloride 97 mmol/L (98-107); Glucose 153 mg/dL (83-110); Magnesium 1.8 mg/dL (1.6-2.6); Potassium 3.8 mmol/L (3.5-5.1); Sodium 134 mmol/L (136-145)
[2021-06-21 16:45] VITALS: BP 122/63; TEMP 98.4
[2021-06-21] MEDS ORDERED: TICAGRELOR 90 MG TABLET PO SCH (21:00)
[2021-06-21] MEDS ORDERED: Apixaban 5 MG TAB PO SCH (21:00)
[2021-06-22] MEDS ORDERED: Aspirin 81 mg Enteric Coated Tablet PO SCH (09:00)
== END 2021-06-21 17:13 | disposition home or self-care (01) | DRG 917 ==
LOC: CSHERS 18:59 → CSHICU 23:32 → UNDOADMIN 06-13 01:21 → CSHICU 06-13 01:21 → CSHTELE 06-14 16:15
PROVIDERS: ADMIT Student in an Organized Health Care Education/Training Program; ATTEND Family Medicine
PROC: 8E0ZXY6 Isolation (ICD-10-PCS; principal; 2021-06-12)
DX: T46.0X1A Poisoning by cardiac-stimulant glycosides and drugs of similar action, accidental (unintentional), initial encounter (principal); U07.1 COVID-19; N17.9 Acute kidney failure, unspecified; I48.11 Longstanding persistent atrial fibrillation; I13.0 Hypertensive heart and chronic kidney disease with heart failure and stage 1 through stage 4 chronic kidney disease, or unspecified chronic kidney disease; I48.92 Unspecified atrial flutter; I50.42 Chronic combined systolic (congestive) and diastolic (congestive) heart failure; I69.354 Hemiplegia and hemiparesis following cerebral infarction affecting left non-dominant side; E87.1 Hypo-osmolality and hyponatremia; R07.9 Chest pain, unspecified; N18.30 Chronic kidney disease, stage 3 unspecified; I25.10 Atherosclerotic heart disease of native coronary artery without angina pectoris; E11.22 Type 2 diabetes mellitus with diabetic chronic kidney disease; D63.1 Anemia in chronic kidney disease; E03.9 Hypothyroidism, unspecified; J44.9 Chronic obstructive pulmonary disease, unspecified; E11.65 Type 2 diabetes mellitus with hyperglycemia; H40.9 Unspecified glaucoma; R13.10 Dysphagia, unspecified; E87.5 Hyperkalemia; E66.9 Obesity, unspecified; E83.42 Hypomagnesemia; R00.1 Bradycardia, unspecified; Z79.899 Other long term (current) drug therapy; Z79.01 Long term (current) use of anticoagulants; Z95.5 Presence of coronary angioplasty implant and graft; Z79.890 Hormone replacement therapy; Z79.891 Long term (current) use of opiate analgesic; Z79.82 Long term (current) use of aspirin; Z88.8 Allergy status to other drugs, medicaments and biological substances; Z90.710 Acquired absence of both cervix and uterus; Z87.891 Personal history of nicotine dependence; Z68.26 Body mass index [BMI] 26.0-26.9, adult
CPT/HCPCS: 36415; 36416; 71045; 80048; 80053; 80162; 82728; 83540; 83550; 83735; 84100; 84439; 84443; 84484; 85025; 86140; 87086; 93005; 93010; 94664; 94760; 96365; 96367; 96374; 96375; J1162; J1650; J1815; J3475; J7050; U0002

== ENCOUNTER 2021-07-03 23:28 | Inpatient (IN) | payer MEDICARE, MEDICAID ==
[2021-07-04] MEDS ORDERED: Aspirin Chewable 81 MG TAB ONE (00:09)
[2021-07-04] MEDS ORDERED: Nitroglycerin 0.4 MG TAB 1 EACH ONE (00:09)
[2021-07-04 00:32] LABS: ALT (SGPT) 15 U/L (8-55); AST (SGOT) 18 U/L (5-34); Albumin 3.1 g/dL (3.4-4.8); Alkaline Phosphatase 70 U/L (40-110); Anion Gap 18 mmol/L (10-20); BUN (Urea Nitrogen) 20 mg/dL (9.8-20.1); Bilirubin, Total 0.4 mg/dL (0.2-1.2); Calc. Creatinine Clearance 0 mL/min (70-130); Calcium 8.5 mg/dL (7.8-10.44); Carbon Dioxide 23 mmol/L (23-31); Chloride 97 mmol/L (98-107); Globulin 3.8 g/dL (2.4-3.5); Glucose 205 mg/dL (83-110); Potassium 3.6 mmol/L (3.5-5.1); Protein, Total 6.9 g/dL (5.8-8.1); Sodium 134 mmol/L (136-145)
[2021-07-04 00:49] LABS: #Eosinphils 0.2 10x3/uL (0.0-0.5); #Monocytes 0.9 10x3/uL (0.0-1.1); #Neutrophils 6.8 10x3/uL (1.5-8.4); %Basophils 0.3 % (0.0-2.0); %Eosinophils 1.8 % (0.0-6.0); %Monocytes 9.9 % (0.0-10.0); %Neutrophils 72.9 % (40.0-75.0); Hemoglobin 6.2 g/dL (12.0-15.5); Mean Corpuscular HGB CONC 31.8 g/dL (32.0-36.0); Mean Corpuscular Hemoglobin 21.6 pg (27.0-33.0); Mean Corpuscular Volume 67.9 fl (81.6-98.3); Mean Platelet Volume 10.1 fl (7.4-10.4); Platelet Count 382 10x3/uL (150-450); RBC Distribution Width 24.5 % (11.5-14.5); Red Blood Cell (RBC) Count 2.87 10x6/uL (3.90-5.03); White Blood Cell (WBC) Count 9.3 10x3/uL (3.5-10.5)
[2021-07-04 01:24] LABS: Anisocytosis SLIGHT = 6-15 cells (100X) (0-5/hpf); Basophilic Stippling SLIGHT = 1-2 cells (100X) (None Seen); Hypochromia MODERATE=16-30 cells (100X) (0-5/hpf); Macrocytosis SLIGHT = 6-15 cells (100X) (0-5/hpf); Microcytosis SLIGHT = 6-15 cells (100X) (0-5/hpf); Platelet Morphology Comment Appears Adequate; Polychromasia SLIGHT = 2-3 cells (100X) (0-2/hpf); Target Cells SLIGHT = 2-5 cells (100X) (0-1/hpf)
[2021-07-04] MEDS ORDERED: Nitroglycerin 0.4 MG TAB (25 Tab Bottle) SL PRN (04:03)
[2021-07-04] MEDS ORDERED: Dextrose 50% Abboject 50 ML SYRINGE SLOW IVP PRN (04:11)
[2021-07-04] MEDS ORDERED: Dextrose 5% in Water 1,000 ML IV PRN (04:11)
[2021-07-04 04:45] VITALS: BMI 26.2
[2021-07-04] MEDS: Sodium Chloride 0.9% 1,000 ML IV SCH ×2 (05:00→16:22)
[2021-07-04] MEDS ORDERED: Pantoprazole 40 MG VIAL IVP SCH (05:00)
[2021-07-04] MEDS ORDERED: Potassium Chloride 20 MEQ TAB PO SCH (05:15)
[2021-07-04] MEDS ORDERED: Pantoprazole 40 MG VIAL ONE (05:57)
[2021-07-04] MEDS: Nitroglycerin 2% Ointment 1 INCH/1 GM Packet TOP SCH ×3 (06:03→21:00)
[2021-07-04] MEDS ORDERED: FLU VACC QS2021-22(65YR UP)/PF 240 MCG/0.7 ML SYRINGE IM ONE (06:15)
[2021-07-04 06:25] LABS: INR-International Normal Ratio 1.2; PTT 28.5 sec (22.0-33.0)
[2021-07-04 06:33] LABS: Cardiac Risk 3.1 (Less than 4.5); Cholesterol 147 mg/dl (< 200 Desired); HDL Cholesterol 47 mg/dL (>60 Neg Risk); LDL Cholesterol, Calculated 83 mg/dL; Magnesium 1.5 mg/dL (1.6-2.6); Triglycerides 84 mg/dL (Less than 150)
[2021-07-04] MEDS ORDERED: Potassium Chloride 20 MEQ in Premix Bag 1 BAG IVPB SCH (08:00)
[2021-07-04] MEDS ORDERED: Magnesium 2 GM/50 ML 2 GM in Premix Bag 1 BAG IVPB SCH (08:00)
[2021-07-04] MEDS: Mometasone/Formoterol 200/5 60 PUFF INH SCH ×2 (08:44→19:35)
[2021-07-04 08:57] LABS: Hemoglobin 7.7 g/dL (12.0-15.5)
[2021-07-04] MEDS ORDERED: Loteprednol Etabonate 0.5% Ophth Suspension 5 ml Bottle R EYE SCH (09:00)
[2021-07-04 09:09] LABS: Troponin I 0.018 ng/mL (< 0.028)
[2021-07-04] MEDS: Pantoprazole 40 MG VIAL IVP SCH ×2 (09:14→20:55)
[2021-07-04] MEDS: Metoprolol Tartrate 5 MG/5 ML VIAL IVP SCH ×4 (09:15→16:14)
[2021-07-04] MEDS: HumaLOG 300 UNITS/3 ML VIAL SC PRN (16:32)
[2021-07-04 17:58] LABS: SARS-CoV-2 PCR by NAA Not Detected (NotDetected)
[2021-07-05] MEDS: Metoprolol Tartrate 5 MG/5 ML VIAL IVP SCH ×3 (00:05→17:03)
[2021-07-05] MEDS: Sodium Chloride 0.9% 1,000 ML IV SCH ×3 (02:00→20:45)
[2021-07-05 05:56] LABS: Anion Gap 16 mmol/L (10-20); BUN (Urea Nitrogen) 10 mg/dL (9.8-20.1); Calc. Creatinine Clearance 71 mL/min (70-130); Calcium 8.4 mg/dL (7.8-10.44); Carbon Dioxide 19 mmol/L (23-31); Chloride 107 mmol/L (98-107); Glucose 115 mg/dL (83-110); Potassium 3.6 mmol/L (3.5-5.1); Sodium 138 mmol/L (136-145)
[2021-07-05] MEDS: Nitroglycerin 2% Ointment 1 INCH/1 GM Packet TOP SCH ×3 (06:46→20:55)
[2021-07-05] MEDS: Mometasone/Formoterol 200/5 60 PUFF INH SCH ×2 (07:21→19:35)
[2021-07-05 07:47] LABS: #Basophils 0.1 10x3/uL (0.0-0.2); #Eosinphils 0.4 10x3/uL (0.0-0.5); #Monocytes 0.9 10x3/uL (0.0-1.1); #Neutrophils 8.9 10x3/uL (1.5-8.4); %Basophils 0.5 % (0.0-2.0); %Eosinophils 3.8 % (0.0-6.0); %Lymphocytes 11.2 % (18.0-47.0); %Monocytes 7.8 % (0.0-10.0); %Neutrophils 75.3 % (40.0-75.0); Hemoglobin 9.7 g/dL (12.0-15.5); Mean Corpuscular HGB CONC 33.9 g/dL (32.0-36.0); Mean Corpuscular Hemoglobin 25.1 pg (27.0-33.0); Mean Corpuscular Volume 74.1 fl (81.6-98.3); Mean Platelet Volume 10.2 fl (7.4-10.4); Platelet Count 322 10x3/uL (150-450); RBC Distribution Width 25.2 % (11.5-14.5); Red Blood Cell (RBC) Count 3.86 10x6/uL (3.90-5.03); White Blood Cell (WBC) Count 11.7 10x3/uL (3.5-10.5)
[2021-07-05] MEDS: Pantoprazole 40 MG VIAL IVP SCH ×2 (09:04→20:45)
[2021-07-05 09:32] LABS: Magnesium 1.7 mg/dL (1.6-2.6)
[2021-07-05] MEDS ORDERED: PROPOFOL 20 ML ONE (14:32)
[2021-07-05] MEDS: Clotrimazole 2% 3 Day Vag Cr 22.2 GM TUBE VAG SCH (20:51)
[2021-07-05] MEDS ORDERED: Furosemide 40 MG/4 ML VIAL SLOW IVP SCH (22:30)
[2021-07-05] MEDS ORDERED: Sodium Chloride 0.9% 1,000 ML IV SCH (22:30)
[2021-07-06] MEDS: Metoprolol Tartrate 5 MG/5 ML VIAL IVP SCH ×2 (00:42→09:55)
[2021-07-06] MEDS ORDERED: Sodium Chloride 0.9% 1,000 ML IV SCH (03:15)
[2021-07-06 05:26] LABS: #Basophils 0.1 10x3/uL (0.0-0.2); #Eosinphils 0.3 10x3/uL (0.0-0.5); #Monocytes 0.9 10x3/uL (0.0-1.1); #Neutrophils 9.1 10x3/uL (1.5-8.4); %Basophils 0.4 % (0.0-2.0); %Eosinophils 2.8 % (0.0-6.0); %Lymphocytes 10.8 % (18.0-47.0); %Monocytes 7.7 % (0.0-10.0); %Neutrophils 77.4 % (40.0-75.0); Hemoglobin 9.3 g/dL (12.0-15.5); Mean Corpuscular Hemoglobin 25.1 pg (27.0-33.0); Mean Platelet Volume 10.7 fl (7.4-10.4); Platelet Count 324 10x3/uL (150-450); RBC Distribution Width 25.6 % (11.5-14.5); Red Blood Cell (RBC) Count 3.71 10x6/uL (3.90-5.03); White Blood Cell (WBC) Count 11.8 10x3/uL (3.5-10.5)
[2021-07-06] MEDS: Nitroglycerin 2% Ointment 1 INCH/1 GM Packet TOP SCH (06:06)
[2021-07-06 06:34] LABS: Platelet Morphology Comment Appears Adequate
[2021-07-06 06:35] LABS: Anisocytosis MODERATE=16-30 cells (100X) (0-5/hpf); Hypochromia SLIGHT = 6-15 cells (100X) (0-5/hpf); Macrocytosis SLIGHT = 6-15 cells (100X) (0-5/hpf); Microcytosis SLIGHT = 6-15 cells (100X) (0-5/hpf)
[2021-07-06 06:36] LABS: Polychromasia SLIGHT = 2-3 cells (100X) (0-2/hpf); Stomatocytes SLIGHT = 2-5 cells (100X) (0-1/hpf); Target Cells SLIGHT = 2-5 cells (100X) (0-1/hpf)
[2021-07-06] MEDS: Mometasone/Formoterol 200/5 60 PUFF INH SCH ×2 (07:43→18:58)
[2021-07-06] MEDS: Metoprolol Tartrate 25 MG TAB PO SCH ×2 (08:51→20:04)
[2021-07-06] MEDS: Pantoprazole 40 MG VIAL IVP SCH (08:51)
[2021-07-06 14:35] LABS: Bilirubin Neg (Negative); Blood, Urine Negative (Negative); Clarity Clear (Clear); Glucose, Urine (Dipstick) Normal (Negative); Ketone, Urine Negative (Negative); Leukocyte Negative (Negative); Nitrite Negative (Negative); Protein, Urine (Dipstick) Negative (Neg-Trace)
[2021-07-06 14:48] LABS: Urine Culture Reflex No No
[2021-07-06 14:55] LABS: Bacteria/HPF Rare-Few HPF (None Seen); RBC/HPF 0-3 HPF (0-3); Squamous Epithelial 0-3 HPF (0-3); WBC/HPF 0-3 HPF (0-3)
[2021-07-06] MEDS: Clotrimazole 2% 3 Day Vag Cr 22.2 GM TUBE VAG SCH (20:04)
[2021-07-07 05:25] LABS: #Eosinphils 0.3 10x3/uL (0.0-0.5); #Monocytes 0.9 10x3/uL (0.0-1.1); #Neutrophils 7.4 10x3/uL (1.5-8.4); %Basophils 0.4 % (0.0-2.0); %Eosinophils 3.1 % (0.0-6.0); %Monocytes 9.3 % (0.0-10.0); %Neutrophils 74.5 % (40.0-75.0); Hemoglobin 8.8 g/dL (12.0-15.5); Mean Corpuscular HGB CONC 32.6 g/dL (32.0-36.0); Mean Corpuscular Hemoglobin 25.1 pg (27.0-33.0); Mean Corpuscular Volume 76.9 fl (81.6-98.3); Mean Platelet Volume 10.2 fl (7.4-10.4); Platelet Count 266 10x3/uL (150-450); RBC Distribution Width 25.6 % (11.5-14.5); Red Blood Cell (RBC) Count 3.51 10x6/uL (3.90-5.03); White Blood Cell (WBC) Count 9.9 10x3/uL (3.5-10.5)
[2021-07-07 06:57] LABS: Anisocytosis MODERATE=16-30 cells (100X) (0-5/hpf); Hypochromia SLIGHT = 6-15 cells (100X) (0-5/hpf); Microcytosis SLIGHT = 6-15 cells (100X) (0-5/hpf); Platelet Morphology Comment Appears Adequate; Polychromasia SLIGHT = 2-3 cells (100X) (0-2/hpf); Target Cells SLIGHT = 2-5 cells (100X) (0-1/hpf)
[2021-07-07] MEDS: Mometasone/Formoterol 200/5 60 PUFF INH SCH ×2 (07:09→18:49)
[2021-07-07] MEDS: Metoprolol Tartrate 50 MG TAB PO SCH ×2 (09:06→20:35)
[2021-07-07] MEDS: Iron Polysaccharides Complex 150 MG CAP PO SCH (09:07)
[2021-07-07] MEDS: Clotrimazole 2% 3 Day Vag Cr 22.2 GM TUBE VAG SCH (20:35)
[2021-07-08] MEDS: Mometasone/Formoterol 200/5 60 PUFF INH SCH ×3 (07:39→23:34)
[2021-07-08] MEDS ORDERED: Carvedilol 6.25 MG TAB PO SCH ×3 (09:00→17:00)
[2021-07-08 09:46] LABS: #Basophils 0.1 10x3/uL (0.0-0.2); #Eosinphils 0.2 10x3/uL (0.0-0.5); #Monocytes 1.1 10x3/uL (0.0-1.1); #Neutrophils 6.2 10x3/uL (1.5-8.4); %Basophils 0.6 % (0.0-2.0); %Eosinophils 2.5 % (0.0-6.0); %Monocytes 12.5 % (0.0-10.0); %Neutrophils 70.9 % (40.0-75.0); Hemoglobin 9.6 g/dL (12.0-15.5); Mean Corpuscular HGB CONC 31.8 g/dL (32.0-36.0); Mean Corpuscular Hemoglobin 25.1 pg (27.0-33.0); Mean Corpuscular Volume 79.1 fl (81.6-98.3); Mean Platelet Volume 10.4 fl (7.4-10.4); Platelet Count 292 10x3/uL (150-450); RBC Distribution Width 25.7 % (11.5-14.5); Red Blood Cell (RBC) Count 3.82 10x6/uL (3.90-5.03); White Blood Cell (WBC) Count 8.7 10x3/uL (3.5-10.5)
[2021-07-08] MEDS: Iron Polysaccharides Complex 150 MG CAP PO SCH (10:03)
[2021-07-08] MEDS: Apixaban 2.5 MG TAB PO SCH ×2 (10:03→20:40)
[2021-07-08] MEDS: Carvedilol 12.5 MG TAB PO SCH (17:10)
[2021-07-08] MEDS: Clotrimazole 2% 3 Day Vag Cr 22.2 GM TUBE VAG SCH (20:39)
[2021-07-09] MEDS ORDERED: Acetaminophen 325 MG TAB PO PRN (00:58)
[2021-07-09] MEDS ORDERED: Acetaminophen 650 MG Suppository PR PRN (00:58)
[2021-07-09] MEDS: Mometasone/Formoterol 200/5 60 PUFF INH SCH (08:00)
[2021-07-09] MEDS: Carvedilol 12.5 MG TAB PO SCH (08:41)
[2021-07-09] MEDS: Apixaban 2.5 MG TAB PO SCH (08:41)
[2021-07-09] MEDS: Iron Polysaccharides Complex 150 MG CAP PO SCH (08:41)
[2021-07-09] MEDS: HumaLOG 300 UNITS/3 ML VIAL SC PRN (12:47)
[2021-07-09 16:27] VITALS: BP 143/94; TEMP 97.6
== END 2021-07-09 17:05 | disposition home or self-care (01) | DRG 378 ==
LOC: CSHERS 23:28 → CSHTELE 07-04 04:24
PROVIDERS: ADMIT Family Medicine; ATTEND Internal Medicine
PROC: 30233N1 Transfusion of Nonautologous Red Blood Cells into Peripheral Vein, Percutaneous Approach (ICD-10-PCS; 2021-07-04)
PROC: 0DJ08ZZ Inspection of Upper Intestinal Tract, Via Natural or Artificial Opening Endoscopic (ICD-10-PCS; principal; 2021-07-05)
DX: K92.1 Melena (principal); I48.11 Longstanding persistent atrial fibrillation; D62 Acute posthemorrhagic anemia; I48.92 Unspecified atrial flutter; Z20.822 Contact with and (suspected) exposure to COVID-19; I25.10 Atherosclerotic heart disease of native coronary artery without angina pectoris; I10 Essential (primary) hypertension; E78.5 Hyperlipidemia, unspecified; E11.9 Type 2 diabetes mellitus without complications; E03.9 Hypothyroidism, unspecified; I48.0 Paroxysmal atrial fibrillation; J44.9 Chronic obstructive pulmonary disease, unspecified; Z86.73 Personal history of transient ischemic attack (TIA), and cerebral infarction without residual deficits; Z88.8 Allergy status to other drugs, medicaments and biological substances; Z79.01 Long term (current) use of anticoagulants; Z79.82 Long term (current) use of aspirin; Z79.899 Other long term (current) drug therapy; Z95.5 Presence of coronary angioplasty implant and graft; I25.2 Old myocardial infarction; Z90.710 Acquired absence of both cervix and uterus; Z87.891 Personal history of nicotine dependence
CPT/HCPCS: 36415; 36416; 36430; 71045; 80048; 80053; 80061; 81001; 83735; 84484; 85025; 85610; 85730; 86850; 86900; 86901; 87040; 93005; 93010; 94640; 94760; C9113; J1940; J2704; J3475; J3480; J7050; J7620; P9016; U0003; U0005

== ENCOUNTER 2021-08-21 16:11 | Inpatient (IN) | payer MEDICARE, MEDICAID ==
[2021-08-21 16:57] LABS: Hemoglobin 12.3 g/dL (12.0-15.5); Mean Corpuscular HGB CONC 33.8 g/dL (32.0-36.0); Mean Corpuscular Hemoglobin 25.2 pg (27.0-33.0); Mean Corpuscular Volume 74.6 fl (81.6-98.3); Mean Platelet Volume 11.2 fl (7.4-10.4); Red Blood Cell (RBC) Count 4.88 10x6/uL (3.90-5.03); White Blood Cell (WBC) Count 6.8 10x3/uL (3.5-10.5)
[2021-08-21 16:59] LABS: ALT (SGPT) 18 U/L (8-55); AST (SGOT) 24 U/L (5-34); Albumin 3.6 g/dL (3.4-4.8); Alkaline Phosphatase 69 U/L (40-110); Anion Gap 14 mmol/L (10-20); BUN (Urea Nitrogen) 11 mg/dL (9.8-20.1); Bilirubin, Total 0.5 mg/dL (0.2-1.2); Calc. Creatinine Clearance 0 mL/min (70-130); Calcium 8.9 mg/dL (7.8-10.44); Carbon Dioxide 29 mmol/L (23-31); Chloride 99 mmol/L (98-107); Globulin 3.9 g/dL (2.4-3.5); Glucose 123 mg/dL (83-110); Potassium 3.8 mmol/L (3.5-5.1); Protein, Total 7.5 g/dL (5.8-8.1); Sodium 138 mmol/L (136-145)
[2021-08-21 17:05] LABS: MDiff Complete? YES
[2021-08-21 17:12] LABS: Platelet Count 292 10x3/uL (150-450)
[2021-08-21 17:44] LABS: Eosinophils 4 % (0-10); Lymphocytes 20 % (21-51); Monocytes 15 % (0-10); Neutrophil 59 % (42-75); Reactive Lymphocytes 2 % (0-10)
[2021-08-21 17:46] LABS: Anisocytosis MODERATE=16-30 cells (100X) (0-5/hpf); Microcytosis SLIGHT = 6-15 cells (100X) (0-5/hpf); Platelet Morphology Comment Appears Adequate
[2021-08-21] MEDS ORDERED: Calcium Carbonate 500 MG ChewTAB PO PRN (19:24)
[2021-08-21] MEDS ORDERED: Guaifenesin DM 100-10/5 ML UDCUP PO PRN (19:24)
[2021-08-21] MEDS ORDERED: HYDROcodone/Acetaminophen 5/325 mg Tablet PO PRN (19:24)
[2021-08-21] MEDS ORDERED: Acetaminophen 325 MG TAB PO PRN (19:24)
[2021-08-21] MEDS ORDERED: Ondansetron PF 4 MG/2 ML Vial IVP PRN (19:24)
[2021-08-21] MEDS ORDERED: Nitroglycerin 0.4 MG TAB (25 Tab Bottle) SL PRN (19:27)
[2021-08-21] MEDS ORDERED: traMADol HCl 50 MG TAB PO SCH (19:30)
[2021-08-21 19:59] LABS: Troponin I 0.021 ng/mL (< 0.028)
[2021-08-21] MEDS ORDERED: LOTEPREDNOL ETABONATE R EYE SCH (21:00)
[2021-08-21] MEDS: Senokot S 8.6-50 MG TAB PO SCH (21:23)
[2021-08-21] MEDS: Cholecalciferol 1,000 UNITS (25 MCG) TAB PO SCH (21:25)
[2021-08-21] MEDS: Apixaban 2.5 MG TAB PO SCH (21:25)
[2021-08-21 22:05] VITALS: BMI 26.6
[2021-08-21] MEDS: Latanoprost 0.005% Ophth Soln 2.5 ml Bottle R EYE SCH (22:24)
[2021-08-21 23:09] LABS: Digoxin 0.65 ng/mL (0.8-2.0)
[2021-08-21 23:16] LABS: Troponin I 0.014 ng/mL (< 0.028)
[2021-08-22 01:28] LABS: Bilirubin Neg (Negative); Blood, Urine Negative (Negative); Clarity Clear (Clear); Glucose, Urine (Dipstick) Normal (Negative); Ketone, Urine Negative (Negative); Leukocyte Negative (Negative); Nitrite Negative (Negative); Protein, Urine (Dipstick) Negative (Neg-Trace); Urobilinogen Normal mg/dL (Less than 2)
[2021-08-22 01:37] LABS: RBC/HPF 0-3 HPF (0-3); WBC/HPF 0-3 HPF (0-3)
[2021-08-22 01:38] LABS: Bacteria/HPF Rare-Few HPF (None Seen); Squamous Epithelial 0-3 HPF (0-3)
[2021-08-22 05:42] LABS: Anion Gap 13 mmol/L (10-20); BUN (Urea Nitrogen) 10 mg/dL (9.8-20.1); Calc. Creatinine Clearance 67 mL/min (70-130); Calcium 8.9 mg/dL (7.8-10.44); Carbon Dioxide 29 mmol/L (23-31); Cardiac Risk 3.1 (Less than 4.5); Chloride 102 mmol/L (98-107); Cholesterol 161 mg/dl (< 200 Desired); Glucose 201 mg/dL (83-110); HDL Cholesterol 52 mg/dL (>60 Neg Risk); LDL Cholesterol, Calculated 86 mg/dL; Potassium 3.6 mmol/L (3.5-5.1); Sodium 140 mmol/L (136-145); Triglycerides 115 mg/dL (Less than 150)
[2021-08-22 05:56] LABS: Thyroid Stimulating Hormone 0.2436 uIU/mL (0.35-4.94)
[2021-08-22] MEDS ORDERED: Carvedilol 12.5 MG TAB PO SCH (08:00)
[2021-08-22] MEDS ORDERED: Carvedilol 25 MG TAB PO SCH (08:45)
[2021-08-22] MEDS: Ferrous Sulfate 325 MG TAB PO SCH (09:58)
[2021-08-22] MEDS: Senokot S 8.6-50 MG TAB PO SCH ×2 (09:58→20:37)
[2021-08-22] MEDS: Atorvastatin Calcium 40 MG TAB PO SCH (09:59)
[2021-08-22] MEDS: Gabapentin 300 MG CAP PO SCH (09:59)
[2021-08-22] MEDS: Furosemide 40 MG TAB PO SCH (09:59)
[2021-08-22] MEDS: Alogliptin 25 MG TAB PO SCH (09:59)
[2021-08-22] MEDS: Apixaban 2.5 MG TAB PO SCH ×2 (10:00→20:37)
[2021-08-22] MEDS: Oxybutynin ER 5 MG TAB PO SCH (10:00)
[2021-08-22] MEDS: Mometasone/Formoterol 200/5 60 PUFF INH SCH ×2 (11:17→19:25)
[2021-08-22 14:49] LABS: Free T4 (Free Thyroxine) 1.14 ng/dL (0.70-1.48)
[2021-08-22 15:54] LABS: SARS-CoV-2 PCR by NAA Not Detected (NotDetected)
[2021-08-22] MEDS: Carvedilol 25 MG TAB PO SCH (17:13)
[2021-08-22] MEDS: Latanoprost 0.005% Ophth Soln 2.5 ml Bottle R EYE SCH (20:38)
[2021-08-22] MEDS: Cholecalciferol 1,000 UNITS (25 MCG) TAB PO SCH (20:38)
[2021-08-22 22:55] LABS: Hemoglobin A1c 5.8 % (4.0-6.0)
[2021-08-23 04:37] LABS: Hemoglobin 11.8 g/dL (12.0-15.5); Mean Corpuscular HGB CONC 33.9 g/dL (32.0-36.0); Mean Corpuscular Hemoglobin 25.3 pg (27.0-33.0); Mean Corpuscular Volume 74.5 fl (81.6-98.3); Mean Platelet Volume 10.8 fl (7.4-10.4); Platelet Count 245 10x3/uL (150-450); RBC Distribution Width 23.9 % (11.5-14.5); Red Blood Cell (RBC) Count 4.67 10x6/uL (3.90-5.03); White Blood Cell (WBC) Count 6.6 10x3/uL (3.5-10.5)
[2021-08-23 04:57] LABS: MDiff Complete? YES
[2021-08-23 04:59] LABS: Eosinophils 7 % (0-10); Lymphocytes 21 % (21-51); Monocytes 11 % (0-10); Neutrophil 58 % (42-75); Reactive Lymphocytes 3 % (0-10)
[2021-08-23 05:01] LABS: Anisocytosis SLIGHT = 6-15 cells (100X) (0-5/hpf); Platelet Morphology Comment Appears Adequate; Target Cells SLIGHT = 2-5 cells (100X) (0-1/hpf)
[2021-08-23 05:02] LABS: Anion Gap 13 mmol/L (10-20); BUN (Urea Nitrogen) 11 mg/dL (9.8-20.1); Calc. Creatinine Clearance 69 mL/min (70-130); Carbon Dioxide 29 mmol/L (23-31); Chloride 102 mmol/L (98-107); Glucose 138 mg/dL (83-110); Potassium 3.6 mmol/L (3.5-5.1); Sodium 140 mmol/L (136-145)
[2021-08-23] MEDS: Levothyroxine Sodium 100 MCG TAB PO SCH (05:58)
[2021-08-23] MEDS: Mometasone/Formoterol 200/5 60 PUFF INH SCH ×2 (06:37→20:33)
[2021-08-23] MEDS: Furosemide 40 MG TAB PO SCH (08:05)
[2021-08-23] MEDS: Gabapentin 300 MG CAP PO SCH (08:05)
[2021-08-23] MEDS: Alogliptin 25 MG TAB PO SCH (08:05)
[2021-08-23] MEDS: Atorvastatin Calcium 40 MG TAB PO SCH (08:05)
[2021-08-23] MEDS: Apixaban 2.5 MG TAB PO SCH ×2 (08:05→21:03)
[2021-08-23] MEDS: Oxybutynin ER 5 MG TAB PO SCH (08:05)
[2021-08-23] MEDS: Ferrous Sulfate 325 MG TAB PO SCH (08:06)
[2021-08-23] MEDS: Senokot S 8.6-50 MG TAB PO SCH ×2 (08:06→21:03)
[2021-08-23] MEDS: Carvedilol 25 MG TAB PO SCH (18:32)
[2021-08-23] MEDS: Cholecalciferol 1,000 UNITS (25 MCG) TAB PO SCH (21:03)
[2021-08-23] MEDS: Latanoprost 0.005% Ophth Soln 2.5 ml Bottle R EYE SCH (21:23)
[2021-08-24] MEDS: Levothyroxine Sodium 100 MCG TAB PO SCH (05:45)
[2021-08-24] MEDS: Mometasone/Formoterol 200/5 60 PUFF INH SCH ×2 (07:11→19:06)
[2021-08-24] MEDS: Ferrous Sulfate 325 MG TAB PO SCH (08:16)
[2021-08-24] MEDS: Apixaban 2.5 MG TAB PO SCH ×2 (08:16→20:06)
[2021-08-24] MEDS: Furosemide 40 MG TAB PO SCH (08:17)
[2021-08-24] MEDS: Gabapentin 300 MG CAP PO SCH (08:17)
[2021-08-24] MEDS: Oxybutynin ER 5 MG TAB PO SCH (08:17)
[2021-08-24] MEDS: Atorvastatin Calcium 40 MG TAB PO SCH (08:17)
[2021-08-24] MEDS: Alogliptin 25 MG TAB PO SCH (08:17)
[2021-08-24] MEDS: Carvedilol 25 MG TAB PO SCH (16:36)
[2021-08-24] MEDS: Latanoprost 0.005% Ophth Soln 2.5 ml Bottle R EYE SCH (20:05)
[2021-08-24] MEDS: Cholecalciferol 1,000 UNITS (25 MCG) TAB PO SCH (20:06)
[2021-08-25] MEDS: Levothyroxine Sodium 100 MCG TAB PO SCH (06:35)
[2021-08-25] MEDS: Mometasone/Formoterol 200/5 60 PUFF INH SCH ×2 (07:00→18:51)
[2021-08-25] MEDS: Gabapentin 300 MG CAP PO SCH ×2 (09:16→20:54)
[2021-08-25] MEDS: Atorvastatin Calcium 40 MG TAB PO SCH (09:16)
[2021-08-25] MEDS: Alogliptin 25 MG TAB PO SCH (09:16)
[2021-08-25] MEDS: Furosemide 40 MG TAB PO SCH (09:16)
[2021-08-25] MEDS: Oxybutynin ER 5 MG TAB PO SCH (09:16)
[2021-08-25] MEDS: Ferrous Sulfate 325 MG TAB PO SCH (09:17)
[2021-08-25] MEDS: Apixaban 2.5 MG TAB PO SCH ×2 (09:17→20:55)
[2021-08-25] MEDS: Carvedilol 25 MG TAB PO SCH (17:47)
[2021-08-25] MEDS: Cholecalciferol 1,000 UNITS (25 MCG) TAB PO SCH (20:55)
[2021-08-25] MEDS: Latanoprost 0.005% Ophth Soln 2.5 ml Bottle R EYE SCH (20:56)
[2021-08-26] MEDS: Levothyroxine Sodium 100 MCG TAB PO SCH (06:16)
[2021-08-26] MEDS: Oxybutynin ER 5 MG TAB PO SCH (08:33)
[2021-08-26] MEDS: Furosemide 40 MG TAB PO SCH (08:33)
[2021-08-26] MEDS: Atorvastatin Calcium 40 MG TAB PO SCH (08:33)
[2021-08-26] MEDS: Alogliptin 25 MG TAB PO SCH (08:33)
[2021-08-26] MEDS: Ferrous Sulfate 325 MG TAB PO SCH (08:33)
[2021-08-26] MEDS: Gabapentin 300 MG CAP PO SCH (08:34)
[2021-08-26] MEDS: Apixaban 2.5 MG TAB PO SCH (08:34)
[2021-08-26 12:17] VITALS: TEMP 97
[2021-08-26 16:08] VITALS: BP 117/62
== END 2021-08-26 16:00 | DRG 313 ==
LOC: CSHERS 16:11 → INTOOBSV 20:32 → CSHTELE 20:32 → OBSVTOIN 08-24 08:07
PROVIDERS: ADMIT Student in an Organized Health Care Education/Training Program; ATTEND Internal Medicine
DX: R07.89 Other chest pain (principal); I50.43 Acute on chronic combined systolic (congestive) and diastolic (congestive) heart failure; I69.354 Hemiplegia and hemiparesis following cerebral infarction affecting left non-dominant side; I48.19 Other persistent atrial fibrillation; I48.92 Unspecified atrial flutter; E78.5 Hyperlipidemia, unspecified; I25.10 Atherosclerotic heart disease of native coronary artery without angina pectoris; E03.9 Hypothyroidism, unspecified; J44.9 Chronic obstructive pulmonary disease, unspecified; E11.42 Type 2 diabetes mellitus with diabetic polyneuropathy; H40.9 Unspecified glaucoma; I11.0 Hypertensive heart disease with heart failure; D50.9 Iron deficiency anemia, unspecified; E11.51 Type 2 diabetes mellitus with diabetic peripheral angiopathy without gangrene; E11.65 Type 2 diabetes mellitus with hyperglycemia; Z20.822 Contact with and (suspected) exposure to COVID-19; Z88.8 Allergy status to other drugs, medicaments and biological substances; Z95.5 Presence of coronary angioplasty implant and graft; Z79.890 Hormone replacement therapy; Z79.01 Long term (current) use of anticoagulants; Z79.84 Long term (current) use of oral hypoglycemic drugs; Z79.51 Long term (current) use of inhaled steroids; Z90.710 Acquired absence of both cervix and uterus; Z87.891 Personal history of nicotine dependence; Z72.89 Other problems related to lifestyle; Z79.02 Long term (current) use of antithrombotics/antiplatelets; Z79.899 Other long term (current) drug therapy
CPT/HCPCS: 36415; 36416; 71045; 80048; 80053; 80061; 80162; 81001; 83036; 83690; 83880; 84439; 84443; 84484; 85025; 93005; 94760; G0378; U0003; U0005

== ENCOUNTER 2021-09-22 11:32 | Outpatient (CLI) | payer MEDICARE, MEDICAID | END 2021-09-22 11:33 | disposition home or self-care (01) | LOC: CSHMAMMO 11:32 | PROVIDERS: ATTEND Physician Assistant | DX: Z12.31 Encounter for screening mammogram for malignant neoplasm of breast (principal) | CPT/HCPCS: 77063; 77067 ==

== ENCOUNTER 2021-10-24 02:33 | Observation (INO) | payer OTHER, MEDICAID ==
[2021-10-24 03:07] LABS: Hemoglobin 12.5 g/dL (12.0-15.5); Mean Corpuscular HGB CONC 34.2 g/dL (32.0-36.0); Mean Corpuscular Hemoglobin 26.7 pg (27.0-33.0); Platelet Count 193 10x3/uL (150-450); RBC Distribution Width 19.1 % (11.5-14.5); Red Blood Cell (RBC) Count 4.68 10x6/uL (3.90-5.03); White Blood Cell (WBC) Count 4.9 10x3/uL (3.5-10.5)
[2021-10-24 03:10] LABS: MDiff Complete? YES; Manual Diff?? YES
[2021-10-24 03:16] LABS: ALT (SGPT) 24 U/L (8-55); AST (SGOT) 27 U/L (5-34); Albumin 3.6 g/dL (3.4-4.8); Alkaline Phosphatase 70 U/L (40-110); Anion Gap 15 mmol/L (10-20); BUN (Urea Nitrogen) 15 mg/dL (9.8-20.1); Bilirubin, Total 0.3 mg/dL (0.2-1.2); Calc. Creatinine Clearance 0 mL/min (70-130); Calcium 8.8 mg/dL (7.8-10.44); Carbon Dioxide 24 mmol/L (23-31); Chloride 103 mmol/L (98-107); Estimated GFR 75; Globulin 3.9 g/dL (2.4-3.5); Glucose 145 mg/dL (83-110); Potassium 3.9 mmol/L (3.5-5.1); Protein, Total 7.5 g/dL (5.8-8.1); Sodium 138 mmol/L (136-145)
[2021-10-24 03:28] LABS: Eosinophils 5 % (0-10); Lymphocytes 35 % (21-51); Monocytes 13 % (0-10); Neutrophil 44 % (42-75); Reactive Lymphocytes 1 % (0-10)
[2021-10-24 03:29] LABS: Anisocytosis SLIGHT = 6-15 cells (100X) (0-5/hpf); Macrocytosis SLIGHT = 6-15 cells (100X) (0-5/hpf); Microcytosis SLIGHT = 6-15 cells (100X) (0-5/hpf); Platelet Morphology Comment Appears Adequate; Polychromasia SLIGHT = 2-3 cells (100X) (0-2/hpf); Target Cells SLIGHT = 2-5 cells (100X) (0-1/hpf)
[2021-10-24] MEDS ORDERED: Acetaminophen 325 MG TAB PO PRN (05:06)
[2021-10-24] MEDS ORDERED: Nitroglycerin 0.4 MG TAB (25 Tab Bottle) SL PRN (05:24)
[2021-10-24 05:33] VITALS: BMI 27.6
[2021-10-24] MEDS ORDERED: Ventolin HFA Inhaler 60 PUFF INHALER INH PRN (05:33)
[2021-10-24 06:00] LABS: Magnesium 1.5 mg/dL (1.6-2.6)
[2021-10-24] MEDS ORDERED: CEFAZOLIN 0.5 GM, Admixture Fee 1 EACH in Sodium Chloride 0.9% 100 ML IVPB SCH (06:00)
[2021-10-24] MEDS ORDERED: SODIUM CHLORIDE IVPB SCH (06:00)
[2021-10-24] MEDS ORDERED: CEFAZOLIN 0.5 GM in Sodium Chloride 0.9% 100 ML IVPB SCH (06:00)
[2021-10-24] MEDS ORDERED: CEFAZOLIN IVPB SCH (06:00)
[2021-10-24] MEDS ORDERED: ADMIXTURE FEE IVPB SCH (06:00)
[2021-10-24 06:06] LABS: Troponin I 0.016 ng/mL (< 0.028)
[2021-10-24] MEDS: Levothyroxine Sodium 125 MCG TAB PO SCH (06:33)
[2021-10-24 06:55] LABS: SARS-CoV-2 NAA Rapid Test Not Detected (NotDetected)
[2021-10-24] MEDS: Mometasone/Formoterol 200/5 60 PUFF INH SCH ×2 (08:05→19:25)
[2021-10-24] MEDS: Digoxin 0.125 MG TAB PO SCH (08:45)
[2021-10-24] MEDS: Atorvastatin Calcium 40 MG TAB PO SCH (08:45)
[2021-10-24] MEDS: Alogliptin 6.25 MG TAB PO SCH (08:45)
[2021-10-24] MEDS: Apixaban 2.5 MG TAB PO SCH ×2 (08:45→20:47)
[2021-10-24] MEDS: Folic Acid/Vit B Comp W-C PO SCH (08:45)
[2021-10-24] MEDS: Latanoprost 0.005% Ophth Soln 2.5 ml Bottle EA EYE SCH ×2 (08:45→20:47)
[2021-10-24] MEDS: Furosemide 40 MG TAB PO SCH (08:45)
[2021-10-24] MEDS: Oxybutynin ER 5 MG TAB PO SCH (08:46)
[2021-10-24] MEDS ORDERED: LOTEPREDNOL ETABONATE R EYE SCH (09:00)
[2021-10-24] MEDS: CEFAZOLIN 1 GM in Sodium Chloride 0.9% 100 ML IVPB SCH ×2 (10:28→18:19)
[2021-10-24] MEDS: Magnesium 2 GM/50 ML(in water) 2 GM in Premix Bag 1 BAG IVPB SCH ×2 (12:18→14:33)
[2021-10-24] MEDS ORDERED: CEFAZOLIN 1 GM in Sodium Chloride 0.9% 100 ML IVPB SCH (14:00)
[2021-10-24] MEDS ORDERED: Magnesium 2 GM/50 ML(in water) 2 GM in Premix Bag 1 BAG IVPB SCH (14:30)
[2021-10-24] MEDS: Carvedilol 25 MG TAB PO SCH (17:11)
[2021-10-24] MEDS: Acetaminophen 325 MG TAB PO PRN (20:46)
[2021-10-24] MEDS: HYDROcodone/Acetaminophen 5/325 mg Tablet PO PRN (22:14)
[2021-10-25] MEDS: CEFAZOLIN 1 GM in Sodium Chloride 0.9% 100 ML IVPB SCH ×3 (01:06→18:36)
[2021-10-25] MEDS ORDERED: HYDROcodone/Acetaminophen 5/325 mg Tablet PO SCH (03:00)
[2021-10-25] MEDS: Levothyroxine Sodium 125 MCG TAB PO SCH (06:02)
[2021-10-25] MEDS: Mometasone/Formoterol 200/5 60 PUFF INH SCH ×2 (07:40→22:15)
[2021-10-25] MEDS: Apixaban 2.5 MG TAB PO SCH ×2 (09:07→20:14)
[2021-10-25] MEDS: Digoxin 0.125 MG TAB PO SCH (09:07)
[2021-10-25] MEDS: Oxybutynin ER 5 MG TAB PO SCH (09:07)
[2021-10-25] MEDS: Alogliptin 6.25 MG TAB PO SCH (09:09)
[2021-10-25] MEDS: Atorvastatin Calcium 40 MG TAB PO SCH (09:09)
[2021-10-25] MEDS: Folic Acid/Vit B Comp W-C PO SCH (09:09)
[2021-10-25] MEDS: Furosemide 40 MG TAB PO SCH (09:09)
[2021-10-25] MEDS: Latanoprost 0.005% Ophth Soln 2.5 ml Bottle EA EYE SCH ×2 (09:09→20:28)
[2021-10-25] MEDS: HYDROcodone/Acetaminophen 5/325 mg Tablet PO PRN (14:18)
[2021-10-25] MEDS ORDERED: Gabapentin 300 MG CAP PO SCH (16:00)
[2021-10-25] MEDS: Carvedilol 25 MG TAB PO SCH (17:12)
[2021-10-25] MEDS: Gabapentin 300 MG CAP PO SCH (20:15)
[2021-10-25] MEDS: Acetaminophen 325 MG TAB PO PRN (20:21)
[2021-10-26] MEDS: HYDROcodone/Acetaminophen 5/325 mg Tablet PO PRN (01:56)
[2021-10-26] MEDS: CEFAZOLIN 1 GM in Sodium Chloride 0.9% 100 ML IVPB SCH ×2 (01:58→09:16)
[2021-10-26] MEDS: Levothyroxine Sodium 125 MCG TAB PO SCH (04:56)
[2021-10-26] MEDS: Mometasone/Formoterol 200/5 60 PUFF INH SCH (07:08)
[2021-10-26] MEDS ORDERED: Alogliptin 6.25 MG TAB PO SCH (09:00)
[2021-10-26] MEDS: Gabapentin 300 MG CAP PO SCH (09:12)
[2021-10-26] MEDS: Atorvastatin Calcium 40 MG TAB PO SCH (09:13)
[2021-10-26] MEDS: Apixaban 2.5 MG TAB PO SCH (09:13)
[2021-10-26] MEDS: Oxybutynin ER 5 MG TAB PO SCH (09:13)
[2021-10-26] MEDS: Furosemide 40 MG TAB PO SCH (09:13)
[2021-10-26] MEDS: Digoxin 0.125 MG TAB PO SCH (09:14)
[2021-10-26] MEDS: Folic Acid/Vit B Comp W-C PO SCH (09:14)
[2021-10-26] MEDS: Latanoprost 0.005% Ophth Soln 2.5 ml Bottle EA EYE SCH (09:15)
[2021-10-26 09:24] LABS: Magnesium 1.5 mg/dL (1.6-2.6)
[2021-10-26] MEDS ORDERED: Magnesium Oxide 400 MG TAB PO SCH (10:30)
[2021-10-26 12:14] VITALS: BP 140/64; TEMP 97
== END 2021-10-26 13:51 | disposition home or self-care (01) ==
LOC: CSHERS 02:33 → CSHTELE 05:19
PROVIDERS: ADMIT Internal Medicine; ATTEND Internal Medicine
DX: I48.3 Typical atrial flutter (principal); I48.19 Other persistent atrial fibrillation; R07.9 Chest pain, unspecified; R22.42 Localized swelling, mass and lump, left lower limb; E11.9 Type 2 diabetes mellitus without complications; I10 Essential (primary) hypertension; J44.9 Chronic obstructive pulmonary disease, unspecified; E03.9 Hypothyroidism, unspecified; I25.10 Atherosclerotic heart disease of native coronary artery without angina pectoris; I25.2 Old myocardial infarction; E78.5 Hyperlipidemia, unspecified; M25.572 Pain in left ankle and joints of left foot; I44.1 Atrioventricular block, second degree; G93.40 Encephalopathy, unspecified; Z86.73 Personal history of transient ischemic attack (TIA), and cerebral infarction without residual deficits; Z87.891 Personal history of nicotine dependence; Z79.01 Long term (current) use of anticoagulants; Z79.84 Long term (current) use of oral hypoglycemic drugs; Z79.890 Hormone replacement therapy; Z79.899 Other long term (current) drug therapy; Z88.8 Allergy status to other drugs, medicaments and biological substances; Z95.5 Presence of coronary angioplasty implant and graft; Z20.822 Contact with and (suspected) exposure to COVID-19; W06.XXXA Fall from bed, initial encounter
CPT/HCPCS: 70450; 71045; 76999; 80162; 82140; 82962; 83735 ×2; 84484 ×2; 93005; 93971; 94640 ×7; 94664; 97110 ×2; 97116 ×3; 97530; 99285; U0002; 36415; 36416; 80053; 84443; 85025; 96374; 96375; 96376; G0378; J0690; J3475; J3490; J7620

== ENCOUNTER 2021-12-04 16:00 | Inpatient (IN) | payer OTHER, MEDICAID ==
[2021-12-04 18:01] LABS: Bilirubin Neg (Negative); Blood, Urine Negative (Negative); Clarity Clear (Clear); Glucose, Urine (Dipstick) Normal (Negative); Ketone, Urine Negative (Negative); Leukocyte 25 (Negative); Nitrite Negative (Negative); Protein, Urine (Dipstick) Negative (Neg-Trace); Urobilinogen Normal mg/dL (Less than 2)
[2021-12-04 18:22] LABS: Bacteria/HPF None Seen HPF (None Seen); RBC/HPF 0-3 HPF (0-3); Squamous Epithelial 0-3 HPF (0-3); WBC/HPF 0-3 HPF (0-3)
[2021-12-04 19:50] LABS: Hemoglobin 13.2 g/dL (12.0-15.5); Mean Corpuscular HGB CONC 34.3 g/dL (32.0-36.0); Mean Corpuscular Hemoglobin 27.7 pg (27.0-33.0); Mean Corpuscular Volume 80.9 fl (81.6-98.3); Mean Platelet Volume 11.1 fl (7.4-10.4); Platelet Count 204 10x3/uL (150-450); Red Blood Cell (RBC) Count 4.76 10x6/uL (3.90-5.03); White Blood Cell (WBC) Count 5.2 10x3/uL (3.5-10.5)
[2021-12-04 20:09] LABS: INR-International Normal Ratio 1.1; PTT 23.6 sec (22.0-33.0); Prothrombin Time 12.3 sec (9.5-12.1)
[2021-12-04 20:10] LABS: CK (CPK) 84 U/L (29-168); Lipase 10 U/L (8-78); MDiff Complete? YES
[2021-12-04 20:11] LABS: ALT (SGPT) 29 U/L (8-55); AST (SGOT) 24 U/L (5-34); Albumin 3.5 g/dL (3.4-4.8); Alkaline Phosphatase 74 U/L (40-110); Anion Gap 17 mmol/L (10-20); BUN (Urea Nitrogen) 12 mg/dL (9.8-20.1); Bilirubin, Total 0.5 mg/dL (0.2-1.2); Calc. Creatinine Clearance 0 mL/min (70-130); Calcium 8.9 mg/dL (7.8-10.44); Carbon Dioxide 24 mmol/L (23-31); Chloride 102 mmol/L (98-107); Estimated GFR 79; Globulin 3.6 g/dL (2.4-3.5); Glucose 196 mg/dL (83-110); Potassium 3.9 mmol/L (3.5-5.1); Protein, Total 7.1 g/dL (5.8-8.1); Sodium 139 mmol/L (136-145)
[2021-12-04 20:45] LABS: SARS-CoV-2 NAA Rapid Test Not Detected (NotDetected)
[2021-12-04 21:07] LABS: Band 1 % (5-11); Lymphocytes 13 % (21-51); Monocytes 14 % (0-10); Neutrophil 71 % (42-75); Reactive Lymphocytes 1 % (0-10)
[2021-12-04 21:09] LABS: Platelet Morphology Comment Appears Adequate
[2021-12-04 21:19] LABS: Digoxin 0.74 ng/mL (0.8-2.0)
[2021-12-04 22:39] VITALS: BMI 28.9
[2021-12-04] MEDS ORDERED: Nitroglycerin 0.4 MG TAB (25 Tab Bottle) SL PRN (23:29)
[2021-12-04] MEDS ORDERED: Acetaminophen 325 MG TAB PO PRN (23:29)
[2021-12-04] MEDS ORDERED: Ventolin HFA Inhaler 60 PUFF INHALER INH PRN (23:55)
[2021-12-04] MEDS ORDERED: Potassium Chloride 20 MEQ TAB PO SCH (23:59)
[2021-12-04] MEDS ORDERED: Furosemide 20 MG/2 ML VIAL SLOW IVP SCH (23:59)
[2021-12-05 00:22] LABS: Magnesium 1.4 mg/dL (1.6-2.6)
[2021-12-05] MEDS ORDERED: Magnesium 2 GM/50 ML(in water) 2 GM in Premix Bag 1 BAG IVPB SCH (04:30)
[2021-12-05 05:23] LABS: #Eosinphils 0.1 10x3/uL (0.0-0.5); #Monocytes 0.9 10x3/uL (0.0-1.1); #Neutrophils 3.4 10x3/uL (1.5-8.4); %Basophils 0.3 % (0.0-2.0); %Eosinophils 1.2 % (0.0-6.0); %Lymphocytes 27.5 % (18.0-47.0); %Monocytes 14.7 % (0.0-10.0); %Neutrophils 55.8 % (40.0-75.0); Hemoglobin 13.5 g/dL (12.0-15.5); Mean Corpuscular HGB CONC 34.3 g/dL (32.0-36.0); Mean Corpuscular Hemoglobin 27.6 pg (27.0-33.0); Mean Corpuscular Volume 80.6 fl (81.6-98.3); Mean Platelet Volume 11.6 fl (7.4-10.4); Platelet Count 229 10x3/uL (150-450); Red Blood Cell (RBC) Count 4.89 10x6/uL (3.90-5.03); White Blood Cell (WBC) Count 6.1 10x3/uL (3.5-10.5)
[2021-12-05 05:41] LABS: Anion Gap 14 mmol/L (10-20); BUN (Urea Nitrogen) 13 mg/dL (9.8-20.1); Calc. Creatinine Clearance 65 mL/min (70-130); Calcium 9.1 mg/dL (7.8-10.44); Carbon Dioxide 27 mmol/L (23-31); Chloride 102 mmol/L (98-107); Estimated GFR 74; Glucose 163 mg/dL (83-110); Potassium 3.8 mmol/L (3.5-5.1); Sodium 139 mmol/L (136-145)
[2021-12-05 05:43] LABS: Troponin I 0.015 ng/mL (< 0.028)
[2021-12-05] MEDS: Levothyroxine Sodium 125 MCG TAB PO SCH (06:18)
[2021-12-05] MEDS: Mometasone/Formoterol 200/5 60 PUFF INH SCH ×2 (07:21→19:05)
[2021-12-05] MEDS ORDERED: Loteprednol Etabonate 0.5% Ophth Suspension 5 ml Bottle R EYE SCH ×2 (09:00)
[2021-12-05] MEDS ORDERED: LOTEPREDNOL ETABONATE R EYE SCH (09:00)
[2021-12-05] MEDS: Preparation H HC 1% Cream 26 GM TUBE TOP SCH (09:30)
[2021-12-05] MEDS: Latanoprost 0.005% Ophth Soln 2.5 ml Bottle EA EYE SCH ×3 (09:30→21:01)
[2021-12-05] MEDS: Atorvastatin Calcium 40 MG TAB PO SCH (09:31)
[2021-12-05] MEDS: Folic Acid/Vit B Comp W-C PO SCH (09:31)
[2021-12-05] MEDS: Gabapentin 300 MG CAP PO SCH ×2 (09:33→20:59)
[2021-12-05] MEDS: Alogliptin 25 MG TAB PO SCH (09:33)
[2021-12-05] MEDS: Furosemide 40 MG TAB PO SCH (09:33)
[2021-12-05] MEDS: Digoxin 0.125 MG TAB PO SCH (09:35)
[2021-12-05] MEDS: Apixaban 2.5 MG TAB PO SCH ×2 (09:35→20:59)
[2021-12-05] MEDS: Oxybutynin ER 5 MG TAB PO SCH (09:36)
[2021-12-05 09:43] LABS: CRP (Inflammatory) Less than 0.50 mg/dL (= or < 0.5); Uric Acid 4.1 mg/dL (2.6-6.0)
[2021-12-05] MEDS: Lansoprazole 3 MG/ML ORAL SUSPENSION PER TUBE SCH (09:56)
[2021-12-05] MEDS: diphenhydrAMINE 25 MG CAP PO PRN ×2 (12:00→18:22)
[2021-12-05] MEDS ORDERED: Iopamidol 370 76% 150 ML VIAL FS ONE (12:15)
[2021-12-05] MEDS: Carvedilol 25 MG TAB PO SCH (18:22)
[2021-12-06] MEDS: Preparation H HC 1% Cream 26 GM TUBE TOP SCH ×3 (04:45→22:20)
[2021-12-06] MEDS: Levothyroxine Sodium 125 MCG TAB PO SCH (05:41)
[2021-12-06] MEDS: Mometasone/Formoterol 200/5 60 PUFF INH SCH ×2 (07:20→17:42)
[2021-12-06] MEDS: Latanoprost 0.005% Ophth Soln 2.5 ml Bottle EA EYE SCH ×2 (09:00→22:19)
[2021-12-06] MEDS: Atorvastatin Calcium 40 MG TAB PO SCH (10:37)
[2021-12-06] MEDS: Alogliptin 25 MG TAB PO SCH (10:37)
[2021-12-06] MEDS: Oxybutynin ER 5 MG TAB PO SCH (10:37)
[2021-12-06] MEDS: Furosemide 40 MG TAB PO SCH (10:37)
[2021-12-06] MEDS: Apixaban 2.5 MG TAB PO SCH ×2 (10:38→22:19)
[2021-12-06] MEDS: Digoxin 0.125 MG TAB PO SCH (10:38)
[2021-12-06] MEDS: Folic Acid/Vit B Comp W-C PO SCH (10:38)
[2021-12-06] MEDS: Gabapentin 300 MG CAP PO SCH ×2 (10:38→22:19)
[2021-12-06] MEDS: Lansoprazole 3 MG/ML ORAL SUSPENSION PER TUBE SCH (10:56)
[2021-12-06] MEDS: Carvedilol 25 MG TAB PO SCH (18:00)
[2021-12-07] MEDS: Levothyroxine Sodium 125 MCG TAB PO SCH (05:33)
[2021-12-07] MEDS: Mometasone/Formoterol 200/5 60 PUFF INH SCH ×2 (06:49→19:20)
[2021-12-07] MEDS: Atorvastatin Calcium 40 MG TAB PO SCH (09:18)
[2021-12-07] MEDS: Oxybutynin ER 5 MG TAB PO SCH (09:18)
[2021-12-07] MEDS: Apixaban 2.5 MG TAB PO SCH ×2 (09:18→22:07)
[2021-12-07] MEDS: Alogliptin 25 MG TAB PO SCH (09:18)
[2021-12-07] MEDS: Furosemide 40 MG TAB PO SCH (09:18)
[2021-12-07] MEDS: Digoxin 0.125 MG TAB PO SCH (09:19)
[2021-12-07] MEDS: Latanoprost 0.005% Ophth Soln 2.5 ml Bottle EA EYE SCH ×2 (09:21→22:06)
[2021-12-07 09:27] LABS: Magnesium 1.7 mg/dL (1.6-2.6)
[2021-12-07] MEDS: Gabapentin 300 MG CAP PO SCH ×2 (09:27→22:06)
[2021-12-07] MEDS ORDERED: Acetaminophen/Codeine 30-300mg Tablet PO PRN (10:56)
[2021-12-07] MEDS ORDERED: Lidocaine 5% Patch TD SCH (11:00)
[2021-12-07] MEDS ORDERED: Acetaminophen/Codeine 30-300mg Tablet PO SCH (12:00)
[2021-12-07] MEDS: Lansoprazole 3 MG/ML ORAL SUSPENSION PER TUBE SCH (13:09)
[2021-12-07] MEDS: Preparation H HC 1% Cream 26 GM TUBE TOP SCH ×2 (13:09→22:09)
[2021-12-07] MEDS: Folic Acid/Vit B Comp W-C PO SCH (13:09)
[2021-12-07] MEDS: Carvedilol 25 MG TAB PO SCH (18:02)
[2021-12-07] MEDS ORDERED: Transdermal Patch Removal TOP SCH (23:00)
[2021-12-08] MEDS: Levothyroxine Sodium 125 MCG TAB PO SCH (05:25)
[2021-12-08] MEDS: Mometasone/Formoterol 200/5 60 PUFF INH SCH (08:12)
[2021-12-08] MEDS: Alogliptin 25 MG TAB PO SCH (08:21)
[2021-12-08] MEDS: Digoxin 0.125 MG TAB PO SCH (08:22)
[2021-12-08] MEDS: Gabapentin 300 MG CAP PO SCH (08:22)
[2021-12-08] MEDS: Apixaban 2.5 MG TAB PO SCH (08:23)
[2021-12-08] MEDS: Furosemide 40 MG TAB PO SCH (08:24)
[2021-12-08] MEDS: Lansoprazole 3 MG/ML ORAL SUSPENSION PER TUBE SCH (08:24)
[2021-12-08] MEDS: Atorvastatin Calcium 40 MG TAB PO SCH (08:24)
[2021-12-08] MEDS: Oxybutynin ER 5 MG TAB PO SCH (08:24)
[2021-12-08] MEDS ORDERED: Lidocaine 5% Patch TD SCH (09:00)
[2021-12-08] MEDS: Latanoprost 0.005% Ophth Soln 2.5 ml Bottle EA EYE SCH (09:37)
[2021-12-08] MEDS: Preparation H HC 1% Cream 26 GM TUBE TOP SCH (10:05)
[2021-12-08] MEDS: Folic Acid/Vit B Comp W-C PO SCH (13:12)
[2021-12-08 13:18] VITALS: BP 132/83; TEMP 97.9
[2021-12-08] MEDS ORDERED: ALPRAZolam 0.25 MG TAB PO PRN (13:21)
[2021-12-08] MEDS ORDERED: ALPRAZolam 0.5 MG TAB PO SCH (13:30)
[2021-12-08] MEDS ORDERED: Transdermal Patch Removal TOP SCH (21:00)
== END 2021-12-08 13:35 | disposition home or self-care (01) | DRG 74 ==
LOC: CSHERS 16:00 → CSHTELE 22:34 → OBSVTOIN 12-06 13:25
PROVIDERS: ADMIT Family Medicine; ATTEND Family Medicine
DX: E11.42 Type 2 diabetes mellitus with diabetic polyneuropathy (principal); I48.92 Unspecified atrial flutter; I69.354 Hemiplegia and hemiparesis following cerebral infarction affecting left non-dominant side; I25.10 Atherosclerotic heart disease of native coronary artery without angina pectoris; E78.5 Hyperlipidemia, unspecified; J44.9 Chronic obstructive pulmonary disease, unspecified; E03.9 Hypothyroidism, unspecified; Z20.822 Contact with and (suspected) exposure to COVID-19; I48.0 Paroxysmal atrial fibrillation; I50.9 Heart failure, unspecified; I11.0 Hypertensive heart disease with heart failure; E11.51 Type 2 diabetes mellitus with diabetic peripheral angiopathy without gangrene; Z88.8 Allergy status to other drugs, medicaments and biological substances; Z79.899 Other long term (current) drug therapy; Z79.51 Long term (current) use of inhaled steroids; Z79.01 Long term (current) use of anticoagulants; Z95.5 Presence of coronary angioplasty implant and graft; I25.2 Old myocardial infarction; Z90.710 Acquired absence of both cervix and uterus; Z98.890 Other specified postprocedural states; Z87.891 Personal history of nicotine dependence
CPT/HCPCS: 36415; 36416; 70450; 70551; 71045; 72125; 75635; 80048; 80053; 80162; 81003; 81015; 82550; 83690; 83735; 83880; 84484; 84550; 85025; 85610; 85652; 85730; 86140; 93005; 93010; 94640; 94760; J1940; J3475; J7620; U0002

== ENCOUNTER 2022-01-11 13:39 | Emergency (ER) | payer OTHER, MEDICAID ==
[2022-01-11 14:25] LABS: #Eosinphils 0.1 10x3/uL (0.0-0.5); #Monocytes 0.7 10x3/uL (0.0-1.1); #Neutrophils 5.1 10x3/uL (1.5-8.4); %Basophils 0.4 % (0.0-2.0); %Eosinophils 0.7 % (0.0-6.0); %Lymphocytes 16.9 % (18.0-47.0); %Monocytes 9.9 % (0.0-10.0); %Neutrophils 71.4 % (40.0-75.0); Hemoglobin 12.7 g/dL (12.0-15.5); Mean Corpuscular HGB CONC 33.6 g/dL (32.0-36.0); Mean Corpuscular Hemoglobin 28.2 pg (27.0-33.0); Mean Platelet Volume 12.3 fl (7.4-10.4); Platelet Count 154 10x3/uL (150-450); RBC Distribution Width 14.2 % (11.5-14.5); White Blood Cell (WBC) Count 7.1 10x3/uL (3.5-10.5)
[2022-01-11 14:40] LABS: ALT (SGPT) 36 U/L (8-55); AST (SGOT) 23 U/L (5-34); Albumin 3.3 g/dL (3.4-4.8); Alkaline Phosphatase 57 U/L (40-110); Anion Gap 13 mmol/L (10-20); BUN (Urea Nitrogen) 10 mg/dL (9.8-20.1); Bilirubin, Total 0.6 mg/dL (0.2-1.2); Calc. Creatinine Clearance 0 mL/min (70-130); Calcium 8.8 mg/dL (7.8-10.44); Carbon Dioxide 29 mmol/L (23-31); Chloride 101 mmol/L (98-107); Estimated GFR 77; Globulin 3.3 g/dL (2.4-3.5); Glucose 231 mg/dL (83-110); Lipase 4 U/L (8-78); Potassium 3.6 mmol/L (3.5-5.1); Protein, Total 6.6 g/dL (5.8-8.1); Sodium 139 mmol/L (136-145)
[2022-01-11 16:29] LABS: Bilirubin Neg (Negative); Blood, Urine Negative (Negative); Clarity Clear (Clear); Glucose, Urine (Dipstick) 100 mg/dL (Negative); Ketone, Urine Negative (Negative); Leukocyte Negative (Negative); Nitrite Negative (Negative); Protein, Urine (Dipstick) Negative (Neg-Trace); Urobilinogen Normal mg/dL (Less than 2)
[2022-01-11 16:39] LABS: Digoxin 0.73 ng/mL (0.8-2.0)
== END 2022-01-11 17:55 | disposition home or self-care (01) ==
LOC: CSHERS 13:39
DX: R53.1 Weakness (principal); M25.552 Pain in left hip; R29.6 Repeated falls; I11.0 Hypertensive heart disease with heart failure; I50.9 Heart failure, unspecified; Z86.73 Personal history of transient ischemic attack (TIA), and cerebral infarction without residual deficits; I48.91 Unspecified atrial fibrillation; J44.9 Chronic obstructive pulmonary disease, unspecified; E11.9 Type 2 diabetes mellitus without complications
CPT/HCPCS: 36415; 71045; 72170; 80053; 80162; 81003; 83605; 83690; 83880; 84484; 85025; 93005; 94760

== ENCOUNTER 2022-04-28 16:06 | Observation (INO) | payer OTHER, MEDICAID ==
[2022-04-28 17:15] LABS: ALT (SGPT) 28 U/L (8-55); AST (SGOT) 30 U/L (5-34); Albumin 4.1 g/dL (3.4-4.8); Alkaline Phosphatase 72 U/L (40-110); Anion Gap 16 mmol/L (10-20); BUN (Urea Nitrogen) 12 mg/dL (9.8-20.1); Bilirubin, Total 0.5 mg/dL (0.2-1.2); Calc. Creatinine Clearance 0 mL/min (70-130); Calcium 9.6 mg/dL (7.8-10.44); Carbon Dioxide 25 mmol/L (23-31); Chloride 99 mmol/L (98-107); Estimated GFR 77; Globulin 3.8 g/dL (2.4-3.5); Glucose 266 mg/dL (83-110); Lipase 6 U/L (8-78); Potassium 4.4 mmol/L (3.5-5.1); Protein, Total 7.9 g/dL (5.8-8.1); Sodium 136 mmol/L (136-145)
[2022-04-28 17:21] LABS: #Monocytes 0.5 10x3/uL (0.0-1.1); #Neutrophils 4.4 10x3/uL (1.5-8.4); %Basophils 0.3 % (0.0-2.0); %Eosinophils 0.3 % (0.0-6.0); %Lymphocytes 15.6 % (18.0-47.0); %Monocytes 8.5 % (0.0-10.0); %Neutrophils 74.8 % (40.0-75.0); Hemoglobin 14.8 g/dL (12.0-15.5); Mean Corpuscular HGB CONC 34.3 g/dL (32.0-36.0); Mean Corpuscular Hemoglobin 28.7 pg (27.0-33.0); Mean Corpuscular Volume 83.7 fl (81.6-98.3); Mean Platelet Volume 11.4 fl (7.4-10.4); Platelet Count 193 10x3/uL (150-450); RBC Distribution Width 13.9 % (11.5-14.5); Red Blood Cell (RBC) Count 5.15 10x6/uL (3.90-5.03); White Blood Cell (WBC) Count 5.9 10x3/uL (3.5-10.5)
[2022-04-28] MEDS ORDERED: HumaLOG 300 UNITS/3 ML VIAL SC PRN ×2 (18:49)
[2022-04-28] MEDS ORDERED: Dextrose 50% Abboject 50 ML SYRINGE SLOW IVP PRN (18:49)
[2022-04-28] MEDS ORDERED: Dextrose 5% in Water 1,000 ML IV PRN (18:49)
[2022-04-28] MEDS ORDERED: Acetaminophen 325 MG TAB PO PRN (18:50)
[2022-04-28] MEDS ORDERED: Ondansetron PF 4 MG/2 ML Vial IVP PRN (18:50)
[2022-04-28] MEDS ORDERED: Senokot S 8.6-50 MG TAB PO PRN (18:50)
[2022-04-28] MEDS ORDERED: Ondansetron ODT 4 MG TAB PO PRN (18:50)
[2022-04-28 19:43] LABS: Magnesium 1.5 mg/dL (1.6-2.6)
[2022-04-28 20:28] LABS: Digoxin 0.57 ng/mL (0.8-2.0)
[2022-04-28 22:13] LABS: Troponin I 0.015 ng/mL (< 0.028)
[2022-04-29 00:57] LABS: Troponin I Less than 0.010 ng/mL (< 0.028)
[2022-04-29] MEDS: Apixaban 2.5 MG TAB PO SCH ×3 (01:06→21:52)
[2022-04-29] MEDS: Carvedilol 25 MG TAB PO SCH ×3 (01:06→21:52)
[2022-04-29] MEDS: Gabapentin 300 MG CAP PO SCH ×3 (01:06→21:52)
[2022-04-29] MEDS: Latanoprost 0.005% Ophth Soln 2.5 ml Bottle EA EYE SCH ×3 (01:07→21:56)
[2022-04-29 01:30] VITALS: BMI 25.5
[2022-04-29 03:05] LABS: SARS-CoV-2 NAA Rapid Test DETECTED (NotDetected)
[2022-04-29 03:14] LABS: Bilirubin Neg (Negative); Blood, Urine Negative (Negative); Clarity Slightly Cloudy (Clear); Glucose, Urine (Dipstick) 100 mg/dL (Negative); Ketone, Urine Negative (Negative); Leukocyte Negative (Negative); Nitrite Negative (Negative); Protein, Urine (Dipstick) Negative (Neg-Trace); Specific Gravity, Urine 1.005 (1.005-1.030); Urobilinogen Normal mg/dL (Less than 2)
[2022-04-29 03:25] LABS: RBC/HPF None Seen HPF (0-3); WBC/HPF None Seen HPF (0-3)
[2022-04-29 03:26] LABS: Bacteria/HPF None Seen HPF (None Seen)
[2022-04-29 04:56] LABS: Anion Gap 10 mmol/L (10-20); BUN (Urea Nitrogen) 12 mg/dL (9.8-20.1); Calc. Creatinine Clearance 67 mL/min (70-130); Calcium 9.2 mg/dL (7.8-10.44); Carbon Dioxide 28 mmol/L (23-31); Chloride 102 mmol/L (98-107); Estimated GFR 87; Glucose 171 mg/dL (83-110); Potassium 3.1 mmol/L (3.5-5.1); Sodium 137 mmol/L (136-145)
[2022-04-29 05:08] LABS: #Eosinphils 0.1 10x3/uL (0.0-0.5); #Monocytes 0.8 10x3/uL (0.0-1.1); #Neutrophils 3.2 10x3/uL (1.5-8.4); %Basophils 0.3 % (0.0-2.0); %Eosinophils 1.6 % (0.0-6.0); %Lymphocytes 27.7 % (18.0-47.0); %Monocytes 14.4 % (0.0-10.0); %Neutrophils 55.8 % (40.0-75.0); Hemoglobin 13.5 g/dL (12.0-15.5); Mean Corpuscular Hemoglobin 28.8 pg (27.0-33.0); Mean Corpuscular Volume 84.8 fl (81.6-98.3); Mean Platelet Volume 11.6 fl (7.4-10.4); Platelet Count 204 10x3/uL (150-450); RBC Distribution Width 13.9 % (11.5-14.5); Red Blood Cell (RBC) Count 4.68 10x6/uL (3.90-5.03); White Blood Cell (WBC) Count 5.8 10x3/uL (3.5-10.5)
[2022-04-29] MEDS: Levothyroxine Sodium 125 MCG TAB PO SCH (06:26)
[2022-04-29] MEDS: Digoxin 0.125 MG TAB PO SCH (11:15)
[2022-04-29] MEDS: Oxybutynin ER 5 MG TAB PO SCH (11:16)
[2022-04-29] MEDS: Alogliptin 25 MG TAB PO SCH (11:16)
[2022-04-29] MEDS: Furosemide 40 MG TAB PO SCH (11:16)
[2022-04-29] MEDS: Atorvastatin Calcium 40 MG TAB PO SCH (11:16)
[2022-04-29] MEDS: Mometasone/Formoterol 200/5 60 PUFF INH SCH (18:48)
[2022-04-30 04:25] LABS: #Eosinphils 0.1 10x3/uL (0.0-0.5); #Monocytes 0.7 10x3/uL (0.0-1.1); #Neutrophils 3.2 10x3/uL (1.5-8.4); %Basophils 0.7 % (0.0-2.0); %Lymphocytes 29.4 % (18.0-47.0); %Monocytes 12.6 % (0.0-10.0); %Neutrophils 54.6 % (40.0-75.0); Hemoglobin 13.2 g/dL (12.0-15.5); Mean Corpuscular HGB CONC 34.2 g/dL (32.0-36.0); Mean Corpuscular Hemoglobin 28.8 pg (27.0-33.0); Mean Corpuscular Volume 84.1 fl (81.6-98.3); Mean Platelet Volume 11.8 fl (7.4-10.4); Platelet Count 211 10x3/uL (150-450); Red Blood Cell (RBC) Count 4.59 10x6/uL (3.90-5.03); White Blood Cell (WBC) Count 5.9 10x3/uL (3.5-10.5)
[2022-04-30 04:39] LABS: Anion Gap 13 mmol/L (10-20); BUN (Urea Nitrogen) 19 mg/dL (9.8-20.1); Calc. Creatinine Clearance 60 mL/min (70-130); Carbon Dioxide 28 mmol/L (23-31); Cardiac Risk 3.2 (Less than 4.5); Chloride 103 mmol/L (98-107); Cholesterol 163 mg/dl (< 200 Desired); Estimated GFR 77; Glucose 134 mg/dL (83-110); HDL Cholesterol 51 mg/dL (>60 Neg Risk); LDL Cholesterol, Calculated 97 mg/dL; Potassium 3.8 mmol/L (3.5-5.1); Sodium 140 mmol/L (136-145); Triglycerides 75 mg/dL (Less than 150)
[2022-04-30] MEDS: Levothyroxine Sodium 125 MCG TAB PO SCH (06:10)
[2022-04-30] MEDS ORDERED: Ascorbic Acid 500 mg Chewable Tablet PO SCH (09:00)
[2022-04-30] MEDS ORDERED: Cholecalciferol (Vitamin D3) 400 UNITS TAB PO SCH (09:00)
[2022-04-30] MEDS ORDERED: Zinc Sulfate 220 MG CAP PO SCH (09:00)
[2022-04-30] MEDS: Alogliptin 25 MG TAB PO SCH (09:39)
[2022-04-30] MEDS: Oxybutynin ER 5 MG TAB PO SCH (09:39)
[2022-04-30] MEDS: Gabapentin 300 MG CAP PO SCH (09:40)
[2022-04-30] MEDS: Atorvastatin Calcium 40 MG TAB PO SCH (09:40)
[2022-04-30] MEDS: Apixaban 2.5 MG TAB PO SCH (09:41)
[2022-04-30] MEDS: Carvedilol 25 MG TAB PO SCH (09:41)
[2022-04-30] MEDS: Digoxin 0.125 MG TAB PO SCH (09:41)
[2022-04-30] MEDS: Furosemide 40 MG TAB PO SCH (09:41)
[2022-04-30] MEDS: Latanoprost 0.005% Ophth Soln 2.5 ml Bottle EA EYE SCH (09:42)
[2022-04-30] MEDS: Mometasone/Formoterol 200/5 60 PUFF INH SCH (10:45)
[2022-04-30] MEDS ORDERED: Fluconazole 100 MG TAB PO SCH (11:45)
[2022-04-30 16:57] VITALS: BP 119/82; TEMP 98.6
== END 2022-04-30 17:35 | disposition home or self-care (01) ==
LOC: CSHERS 16:06 → CSHTELE 18:38 → UNDOADMOB 04-29 00:56
PROVIDERS: ADMIT Family Medicine; ATTEND Internal Medicine
DX: R07.89 Other chest pain (principal); U07.1 COVID-19; I11.0 Hypertensive heart disease with heart failure; I50.32 Chronic diastolic (congestive) heart failure; R53.1 Weakness; E11.9 Type 2 diabetes mellitus without complications; E87.6 Hypokalemia; I48.20 Chronic atrial fibrillation, unspecified; E78.5 Hyperlipidemia, unspecified; E03.9 Hypothyroidism, unspecified; I25.2 Old myocardial infarction; I25.10 Atherosclerotic heart disease of native coronary artery without angina pectoris; Z79.01 Long term (current) use of anticoagulants; Z79.899 Other long term (current) drug therapy; Z79.51 Long term (current) use of inhaled steroids; Z88.8 Allergy status to other drugs, medicaments and biological substances
CPT/HCPCS: 0240U; 71045; 80048 ×2; 80053; 80061; 80162; 81001; 82962 ×3; 83690; 83735; 83880; 84443; 84484 ×3; 85025 ×3; 93005; 94640 ×2; 94664; 94760 ×3; 97116 ×2; 99285; G0378 ×4; 36415; 36416; J1815

== ENCOUNTER 2022-05-10 10:28 | Observation (INO) | payer OTHER, MEDICAID ==
[2022-05-10 11:43] LABS: #Eosinphils 0.1 10x3/uL (0.0-0.5); #Monocytes 0.6 10x3/uL (0.0-1.1); #Neutrophils 3.6 10x3/uL (1.5-8.4); %Basophils 0.4 % (0.0-2.0); %Eosinophils 1.3 % (0.0-6.0); %Lymphocytes 19.3 % (18.0-47.0); %Monocytes 11.5 % (0.0-10.0); %Neutrophils 66.9 % (40.0-75.0); Hemoglobin 13.1 g/dL (12.0-15.5); Mean Corpuscular HGB CONC 34.4 g/dL (32.0-36.0); Mean Corpuscular Hemoglobin 28.6 pg (27.0-33.0); Mean Corpuscular Volume 83.2 fl (81.6-98.3); Mean Platelet Volume 11.8 fl (7.4-10.4); Platelet Count 228 10x3/uL (150-450); RBC Distribution Width 13.7 % (11.5-14.5); Red Blood Cell (RBC) Count 4.58 10x6/uL (3.90-5.03); White Blood Cell (WBC) Count 5.4 10x3/uL (3.5-10.5)
[2022-05-10] MEDS ORDERED: Aspirin 325 MG TAB ONE (11:51)
[2022-05-10 11:53] LABS: Digoxin 0.47 ng/mL (0.8-2.0)
[2022-05-10 11:53] LABS: ALT (SGPT) 25 U/L (8-55); AST (SGOT) 21 U/L (5-34); Albumin 3.5 g/dL (3.4-4.8); Alkaline Phosphatase 68 U/L (40-110); Anion Gap 14 mmol/L (10-20); BUN (Urea Nitrogen) 13 mg/dL (9.8-20.1); Bilirubin, Total 0.5 mg/dL (0.2-1.2); Calc. Creatinine Clearance 0 mL/min (70-130); Calcium 9.3 mg/dL (7.8-10.44); Carbon Dioxide 26 mmol/L (23-31); Chloride 104 mmol/L (98-107); Estimated GFR 78; Globulin 3.3 g/dL (2.4-3.5); Glucose 189 mg/dL (83-110); Lipase 5 U/L (8-78); Potassium 3.8 mmol/L (3.5-5.1); Protein, Total 6.8 g/dL (5.8-8.1); Sodium 140 mmol/L (136-145)
[2022-05-10] MEDS ORDERED: Nitroglycerin 0.4 MG TAB 1 EACH ONE (11:55)
[2022-05-10 15:17] LABS: Troponin I Less than 0.010 ng/mL (< 0.028)
[2022-05-10 15:38] LABS: SARS-CoV-2 NAA Rapid Test DETECTED (NotDetected)
[2022-05-10] MEDS ORDERED: Acetaminophen 325 MG TAB PO PRN (16:51)
[2022-05-10] MEDS ORDERED: Acetaminophen 650 MG Suppository PR PRN (16:51)
[2022-05-10] MEDS ORDERED: Digoxin 0.125 MG TAB ONE (17:05)
[2022-05-10 18:19] LABS: Troponin I Less than 0.010 ng/mL (< 0.028)
[2022-05-10] MEDS ORDERED: Gabapentin 300 MG CAP ONE (23:15)
[2022-05-10] MEDS ORDERED: Apixaban 2.5 MG TAB ONE (23:16)
[2022-05-11 03:29] LABS: Hemoglobin 13.1 g/dL (12.0-15.5); Mean Corpuscular HGB CONC 34.3 g/dL (32.0-36.0); Mean Corpuscular Hemoglobin 28.4 pg (27.0-33.0); Mean Corpuscular Volume 82.7 fl (81.6-98.3); Mean Platelet Volume 11.2 fl (7.4-10.4); Platelet Count 215 10x3/uL (150-450); RBC Distribution Width 13.6 % (11.5-14.5); Red Blood Cell (RBC) Count 4.62 10x6/uL (3.90-5.03); White Blood Cell (WBC) Count 6.5 10x3/uL (3.5-10.5)
[2022-05-11 03:32] LABS: MDiff Complete? YES
[2022-05-11 03:44] LABS: Anion Gap 11 mmol/L (10-20); BUN (Urea Nitrogen) 14 mg/dL (9.8-20.1); Calc. Creatinine Clearance 0 mL/min (70-130); Carbon Dioxide 30 mmol/L (23-31); Chloride 104 mmol/L (98-107); Estimated GFR 86; Glucose 128 mg/dL (83-110); Potassium 3.8 mmol/L (3.5-5.1); Sodium 141 mmol/L (136-145)
[2022-05-11 03:49] LABS: Eosinophils 1 % (0-10); Lymphocytes 31 % (21-51); Monocytes 10 % (0-10); Neutrophil 53 % (42-75); Platelet Morphology Comment Appears Adequate; Reactive Lymphocytes 5 % (0-10)
[2022-05-11] MEDS ORDERED: Levothyroxine Sodium 125 MCG TAB PO SCH (06:00)
[2022-05-11] MEDS ORDERED: Carvedilol 25 MG TAB PO SCH (08:00)
[2022-05-11] MEDS ORDERED: Furosemide 40 MG TAB ONE (08:12)
[2022-05-11] MEDS ORDERED: Digoxin 0.125 MG TAB ONE (08:12)
[2022-05-11] MEDS ORDERED: Apixaban 2.5 MG TAB ONE (08:14)
[2022-05-11] MEDS ORDERED: Atorvastatin Calcium 40 MG TAB ONE (08:14)
[2022-05-11] MEDS ORDERED: Carvedilol 25 MG TAB ONE (08:14)
[2022-05-11] MEDS ORDERED: Gabapentin 300 MG CAP ONE (08:14)
[2022-05-11 08:34] VITALS: BP 115/61; TEMP 98.4
[2022-05-11] MEDS ORDERED: Latanoprost 0.005% Ophth Soln 2.5 ml Bottle EA EYE SCH (09:00)
[2022-05-11] MEDS ORDERED: Digoxin 0.125 MG TAB PO SCH (09:00)
[2022-05-11] MEDS ORDERED: Gabapentin 300 MG CAP PO SCH (09:00)
[2022-05-11] MEDS ORDERED: Atorvastatin Calcium 40 MG TAB PO SCH (09:00)
[2022-05-11] MEDS ORDERED: Alogliptin 25 MG TAB PO SCH (09:00)
[2022-05-11] MEDS ORDERED: Apixaban 2.5 MG TAB PO SCH (09:00)
[2022-05-11] MEDS ORDERED: Furosemide 40 MG TAB PO SCH (09:00)
== END 2022-05-11 09:54 | disposition home or self-care (01) ==
LOC: CSHERS 10:28 → CSHERHOLD 17:12
PROVIDERS: ADMIT Family Medicine; ATTEND Family Medicine
DX: R07.9 Chest pain, unspecified (principal); U07.1 COVID-19; I25.10 Atherosclerotic heart disease of native coronary artery without angina pectoris; I48.11 Longstanding persistent atrial fibrillation; E11.9 Type 2 diabetes mellitus without complications; Z86.73 Personal history of transient ischemic attack (TIA), and cerebral infarction without residual deficits; E78.5 Hyperlipidemia, unspecified; I11.0 Hypertensive heart disease with heart failure; I50.32 Chronic diastolic (congestive) heart failure; E03.9 Hypothyroidism, unspecified; Z95.5 Presence of coronary angioplasty implant and graft; Z79.01 Long term (current) use of anticoagulants; Z79.899 Other long term (current) drug therapy; Z79.84 Long term (current) use of oral hypoglycemic drugs; W01.10XA Fall on same level from slipping, tripping and stumbling with subsequent striking against unspecified object, initial encounter; Z88.8 Allergy status to other drugs, medicaments and biological substances
CPT/HCPCS: 70450; 71045; 72125; 80048; 80053; 80162; 83690; 84484 ×2; 85025 ×2; 93005; 94760; 99285; G0378 ×2; U0002; 36415

== ENCOUNTER 2022-05-30 01:31 | Observation (INO) | payer OTHER, MEDICAID ==
[2022-05-30 02:38] LABS: #Eosinphils 0.1 10x3/uL (0.0-0.5); #Monocytes 0.7 10x3/uL (0.0-1.1); #Neutrophils 2.5 10x3/uL (1.5-8.4); %Basophils 0.6 % (0.0-2.0); %Eosinophils 1.7 % (0.0-6.0); %Lymphocytes 35.6 % (18.0-47.0); %Monocytes 13.7 % (0.0-10.0); %Neutrophils 47.8 % (40.0-75.0); Hemoglobin 12.6 g/dL (12.0-15.5); Mean Corpuscular Hemoglobin 28.2 pg (27.0-33.0); Mean Platelet Volume 11.6 fl (7.4-10.4); Platelet Count 214 10x3/uL (150-450); RBC Distribution Width 13.5 % (11.5-14.5); Red Blood Cell (RBC) Count 4.47 10x6/uL (3.90-5.03); White Blood Cell (WBC) Count 5.3 10x3/uL (3.5-10.5)
[2022-05-30 02:46] LABS: ALT (SGPT) 28 U/L (8-55); AST (SGOT) 23 U/L (5-34); Albumin 3.5 g/dL (3.4-4.8); Alkaline Phosphatase 63 U/L (40-110); Anion Gap 12 mmol/L (10-20); BUN (Urea Nitrogen) 12 mg/dL (9.8-20.1); Bilirubin, Total 0.5 mg/dL (0.2-1.2); Calc. Creatinine Clearance 0 mL/min (70-130); Calcium 9.1 mg/dL (7.8-10.44); Carbon Dioxide 29 mmol/L (23-31); Chloride 103 mmol/L (98-107); Estimated GFR 76; Globulin 3.4 g/dL (2.4-3.5); Glucose 125 mg/dL (83-110); Potassium 3.5 mmol/L (3.5-5.1); Protein, Total 6.9 g/dL (5.8-8.1); Sodium 140 mmol/L (136-145)
[2022-05-30] MEDS ORDERED: Aspirin 325 MG TAB ONE (02:59)
[2022-05-30] MEDS ORDERED: Acetaminophen 325 MG TAB PO PRN (05:55)
[2022-05-30] MEDS ORDERED: Ventolin HFA Inhaler 60 PUFF INHALER INH PRN (05:55)
[2022-05-30] MEDS ORDERED: Nitroglycerin 0.4 MG TAB (25 Tab Bottle) SL PRN (05:55)
[2022-05-30] MEDS ORDERED: Levothyroxine Sodium 125 MCG TAB PO SCH (06:00)
[2022-05-30 06:57] LABS: Magnesium 1.5 mg/dL (1.6-2.6)
[2022-05-30 07:00] LABS: Troponin I Less than 0.010 ng/mL (< 0.028)
[2022-05-30 07:08] LABS: SARS-CoV-2 NAA Rapid Test Not Detected (NotDetected)
[2022-05-30] MEDS ORDERED: Carvedilol 25 MG TAB PO SCH (08:00)
[2022-05-30] MEDS ORDERED: Digoxin 0.125 MG TAB ONE (08:44)
[2022-05-30] MEDS ORDERED: Apixaban 5 MG TAB ONE (08:44)
[2022-05-30] MEDS ORDERED: Furosemide 40 MG TAB ONE (08:44)
[2022-05-30] MEDS ORDERED: Gabapentin 300 MG CAP ONE (08:46)
[2022-05-30] MEDS ORDERED: Carvedilol 25 MG TAB ONE (08:47)
[2022-05-30] MEDS ORDERED: Atorvastatin Calcium 40 MG TAB ONE (08:47)
[2022-05-30] MEDS ORDERED: BROMFENAC SODIUM EA EYE SCH (09:00)
[2022-05-30] MEDS ORDERED: Alogliptin 25 MG TAB PO SCH (09:00)
[2022-05-30] MEDS ORDERED: Latanoprost 0.005% Ophth Soln 2.5 ml Bottle EA EYE SCH (09:00)
[2022-05-30] MEDS ORDERED: Magnesium 2 GM/50 ML(in water) 2 GM in Premix Bag 1 BAG IVPB SCH (09:00)
[2022-05-30] MEDS ORDERED: Gabapentin 300 MG CAP PO SCH (09:00)
[2022-05-30] MEDS ORDERED: Calcium Carbonate 600 MG + Vit D TAB PO SCH (09:00)
[2022-05-30] MEDS ORDERED: Furosemide 40 MG TAB PO SCH (09:00)
[2022-05-30] MEDS ORDERED: prednisoLONE 1% Ophth Susp 5 ml Bottle EA EYE SCH (09:00)
[2022-05-30] MEDS ORDERED: Oxybutynin ER 5 MG TAB PO SCH (09:00)
[2022-05-30] MEDS ORDERED: Alogliptin 6.25 MG TAB PO SCH (09:00)
[2022-05-30] MEDS ORDERED: Apixaban 2.5 MG TAB PO SCH (09:00)
[2022-05-30] MEDS ORDERED: Atorvastatin Calcium 40 MG TAB PO SCH (09:00)
[2022-05-30] MEDS ORDERED: Digoxin 0.125 MG TAB PO SCH (09:00)
[2022-05-30 09:22] LABS: Troponin I 0.011 ng/mL (< 0.028)
[2022-05-30] MEDS ORDERED: Magnesium 2 GM/50 ML BAG (IN WATER) ONE (10:09)
== END 2022-05-30 18:54 | disposition home or self-care (01) ==
LOC: CSHERS 01:31 → CSHERHOLD 05:13 → INTOOBSV 05:13
PROVIDERS: ADMIT Family Medicine; ATTEND Nurse Practitioner Acute Care
DX: I25.118 Atherosclerotic heart disease of native coronary artery with other forms of angina pectoris (principal); E78.5 Hyperlipidemia, unspecified; I48.20 Chronic atrial fibrillation, unspecified; E03.9 Hypothyroidism, unspecified; E11.59 Type 2 diabetes mellitus with other circulatory complications; I11.0 Hypertensive heart disease with heart failure; I50.33 Acute on chronic diastolic (congestive) heart failure; H40.9 Unspecified glaucoma; Z20.822 Contact with and (suspected) exposure to COVID-19; Z79.01 Long term (current) use of anticoagulants; Z79.899 Other long term (current) drug therapy; Z88.8 Allergy status to other drugs, medicaments and biological substances; J44.9 Chronic obstructive pulmonary disease, unspecified; Z95.5 Presence of coronary angioplasty implant and graft; I48.92 Unspecified atrial flutter; I69.359 Hemiplegia and hemiparesis following cerebral infarction affecting unspecified side; Z87.19 Personal history of other diseases of the digestive system
CPT/HCPCS: 71045; 80053; 83735; 83880; 84484 ×2; 85025; 93005; 96374; G0378; U0002; J3475

== ENCOUNTER 2022-07-24 15:32 | Inpatient (IN) | payer OTHER, MEDICARE ==
[2022-07-24 17:26] LABS: #Monocytes 0.5 10x3/uL (0.0-1.1); %Basophils 0.2 % (0.0-2.0); %Eosinophils 0.5 % (0.0-6.0); %Lymphocytes 16.8 % (18.0-47.0); %Monocytes 9.2 % (0.0-10.0); %Neutrophils 72.8 % (40.0-75.0); Hemoglobin 13.1 g/dL (12.0-15.5); Mean Corpuscular HGB CONC 33.2 g/dL (32.0-36.0); Mean Corpuscular Hemoglobin 28.1 pg (27.0-33.0); Mean Corpuscular Volume 84.5 fl (81.6-98.3); Mean Platelet Volume 12.5 fl (7.4-10.4); Platelet Count 146 10x3/uL (150-450); RBC Distribution Width 13.2 % (11.5-14.5); Red Blood Cell (RBC) Count 4.66 10x6/uL (3.90-5.03); White Blood Cell (WBC) Count 5.5 10x3/uL (3.5-10.5)
[2022-07-24 17:31] LABS: ALT (SGPT) 18 U/L (8-55); AST (SGOT) 19 U/L (5-34); Albumin 3.8 g/dL (3.4-4.8); Alkaline Phosphatase 63 U/L (40-110); Anion Gap 13 mmol/L (10-20); BUN (Urea Nitrogen) 12 mg/dL (9.8-20.1); Bilirubin, Total 0.4 mg/dL (0.2-1.2); Calc. Creatinine Clearance 0 mL/min (70-130); Calcium 8.9 mg/dL (7.8-10.44); Carbon Dioxide 27 mmol/L (23-31); Chloride 102 mmol/L (98-107); Estimated GFR 71; Globulin 3.3 g/dL (2.4-3.5); Glucose 223 mg/dL (83-110); Potassium 4.1 mmol/L (3.5-5.1); Protein, Total 7.1 g/dL (5.8-8.1); Sodium 138 mmol/L (136-145)
[2022-07-24 18:55] LABS: INR-International Normal Ratio 1.1; PTT 26.7 sec (22.0-33.0); Prothrombin Time 12.1 sec (9.5-12.1)
[2022-07-24 19:13] LABS: Bilirubin Neg (Negative); Blood, Urine Negative (Negative); Clarity Clear (Clear); Glucose, Urine (Dipstick) 100 mg/dL (Negative); Ketone, Urine Negative (Negative); Leukocyte 25 (Negative); Nitrite Negative (Negative); Protein, Urine (Dipstick) Negative (Neg-Trace); Urobilinogen Normal mg/dL (Less than 2); pH, Urine 6.5 (5.0-9.0)
[2022-07-24 19:20] LABS: Bacteria/HPF Rare-Few HPF (None Seen); RBC/HPF 0-3 HPF (0-3); Squamous Epithelial 21-50 HPF (0-3)
[2022-07-24] MEDS ORDERED: Guaifenesin DM 100-10/5 ML UDCUP PO PRN (19:21)
[2022-07-24] MEDS ORDERED: Dextrose 5% in Water 1,000 ML IV PRN (19:21)
[2022-07-24] MEDS ORDERED: Senokot S 8.6-50 MG TAB PO PRN (19:21)
[2022-07-24] MEDS ORDERED: Acetaminophen 325 MG TAB PO PRN (19:21)
[2022-07-24] MEDS ORDERED: Calcium Carbonate 500 MG ChewTAB PO PRN (19:21)
[2022-07-24] MEDS ORDERED: Ondansetron PF 4 MG/2 ML Vial IVP PRN (19:21)
[2022-07-24] MEDS ORDERED: Dextrose 50% Abboject 50 ML SYRINGE SLOW IVP PRN (19:21)
[2022-07-24] MEDS ORDERED: Ventolin HFA Inhaler 60 PUFF INHALER INH PRN (20:49)
[2022-07-24] MEDS: Gabapentin 300 MG CAP PO SCH (22:33)
[2022-07-24] MEDS: Apixaban 2.5 MG TAB PO SCH (22:33)
[2022-07-25 00:01] VITALS: BMI 25.3
[2022-07-25] MEDS: HumaLOG 300 UNITS/3 ML VIAL SC PRN ×2 (01:12→12:26)
[2022-07-25 04:32] LABS: Thyroid Stimulating Hormone 0.0227 uIU/mL (0.35-4.94)
[2022-07-25] MEDS ORDERED: Levothyroxine Sodium 125 MCG TAB PO SCH (06:00)
[2022-07-25] MEDS ORDERED: BROMFENAC SODIUM EA EYE SCH (09:00)
[2022-07-25] MEDS: Atorvastatin Calcium 40 MG TAB PO SCH (09:05)
[2022-07-25] MEDS: Digoxin 0.125 MG TAB PO SCH (09:05)
[2022-07-25] MEDS: Gabapentin 300 MG CAP PO SCH ×2 (09:06→19:42)
[2022-07-25] MEDS: Apixaban 2.5 MG TAB PO SCH ×2 (09:06→19:41)
[2022-07-25] MEDS: Oxybutynin ER 5 MG TAB PO SCH (09:06)
[2022-07-25] MEDS: Carvedilol 25 MG TAB PO SCH ×2 (09:06→15:40)
[2022-07-25] MEDS: Furosemide 40 MG TAB PO SCH (09:06)
[2022-07-25] MEDS: Alogliptin 25 MG TAB PO SCH (09:07)
[2022-07-25] MEDS: Aspirin 81 mg Enteric Coated Tablet PO SCH (09:07)
[2022-07-25 14:59] LABS: Hemoglobin A1c 5.7 % (4.0-6.0)
[2022-07-26 04:57] LABS: #Eosinphils 0.1 10x3/uL (0.0-0.5); #Monocytes 0.7 10x3/uL (0.0-1.1); #Neutrophils 2.6 10x3/uL (1.5-8.4); %Basophils 0.5 % (0.0-2.0); %Eosinophils 2.2 % (0.0-6.0); %Lymphocytes 36.1 % (18.0-47.0); %Monocytes 12.6 % (0.0-10.0); %Neutrophils 47.9 % (40.0-75.0); Hemoglobin 13.3 g/dL (12.0-15.5); Mean Corpuscular HGB CONC 33.3 g/dL (32.0-36.0); Mean Corpuscular Volume 84.2 fl (81.6-98.3); Mean Platelet Volume 11.9 fl (7.4-10.4); Platelet Count 231 10x3/uL (150-450); RBC Distribution Width 13.2 % (11.5-14.5); Red Blood Cell (RBC) Count 4.75 10x6/uL (3.90-5.03); White Blood Cell (WBC) Count 5.5 10x3/uL (3.5-10.5)
[2022-07-26 05:04] LABS: Anion Gap 15 mmol/L (10-20); BUN (Urea Nitrogen) 18 mg/dL (9.8-20.1); Calc. Creatinine Clearance 54 mL/min (70-130); Calcium 8.8 mg/dL (7.8-10.44); Carbon Dioxide 28 mmol/L (23-31); Chloride 101 mmol/L (98-107); Estimated GFR 77; Glucose 141 mg/dL (83-110); Potassium 3.8 mmol/L (3.5-5.1); Sodium 140 mmol/L (136-145)
[2022-07-26] MEDS ORDERED: Levothyroxine Sodium 112 MCG TAB PO SCH (06:00)
[2022-07-26] MEDS: HumaLOG 300 UNITS/3 ML VIAL SC PRN (06:51)
[2022-07-26] MEDS: Aspirin 81 mg Enteric Coated Tablet PO SCH (11:02)
[2022-07-26] MEDS: Gabapentin 300 MG CAP PO SCH (11:03)
[2022-07-26] MEDS: Alogliptin 25 MG TAB PO SCH (11:05)
[2022-07-26] MEDS: Digoxin 0.125 MG TAB PO SCH (11:05)
[2022-07-26] MEDS: Carvedilol 25 MG TAB PO SCH ×2 (11:09→18:05)
[2022-07-26] MEDS: Atorvastatin Calcium 40 MG TAB PO SCH (11:10)
[2022-07-26] MEDS: Furosemide 40 MG TAB PO SCH (11:10)
[2022-07-26] MEDS: Apixaban 2.5 MG TAB PO SCH (11:10)
[2022-07-26] MEDS: Oxybutynin ER 5 MG TAB PO SCH (15:38)
[2022-07-26 17:13] VITALS: BP 107/56; TEMP 97.8
[2022-07-26] MEDS ORDERED: Latanoprost 0.005% Ophth Soln 2.5 ml Bottle EA EYE SCH (21:00)
== END 2022-07-26 19:07 | disposition home or self-care (01) | DRG 57 ==
LOC: CSHERS 15:32 → CSHTELE 20:31 → OBSVTOIN 07-25 17:37
PROVIDERS: ADMIT Student in an Organized Health Care Education/Training Program; ATTEND Internal Medicine
DX: I69.354 Hemiplegia and hemiparesis following cerebral infarction affecting left non-dominant side (principal); I50.42 Chronic combined systolic (congestive) and diastolic (congestive) heart failure; I48.92 Unspecified atrial flutter; I48.19 Other persistent atrial fibrillation; I25.10 Atherosclerotic heart disease of native coronary artery without angina pectoris; E11.9 Type 2 diabetes mellitus without complications; E03.9 Hypothyroidism, unspecified; D50.9 Iron deficiency anemia, unspecified; H40.9 Unspecified glaucoma; E66.9 Obesity, unspecified; Z95.5 Presence of coronary angioplasty implant and graft; Z79.01 Long term (current) use of anticoagulants; Z88.8 Allergy status to other drugs, medicaments and biological substances; Z79.51 Long term (current) use of inhaled steroids; Z79.899 Other long term (current) drug therapy; Z90.710 Acquired absence of both cervix and uterus; Z87.891 Personal history of nicotine dependence; Z68.25 Body mass index [BMI] 25.0-25.9, adult
CPT/HCPCS: 36415; 36416; 70450; 70551; 71045; 80048; 80053; 80061; 81003; 81015; 82607; 83036; 84443; 84484; 85025; 85610; 85730; 93005; 93306; 93880; G0378; J1815

== ENCOUNTER 2022-10-09 16:10 | Outpatient (CLI) | payer OTHER, MEDICARE | END 2022-10-09 16:11 | disposition home or self-care (01) | LOC: CSHRAD 16:10 | PROVIDERS: ATTEND Physician Assistant | DX: S40.022A Contusion of left upper arm, initial encounter (principal); M25.512 Pain in left shoulder ==

== ENCOUNTER 2022-11-15 19:24 | Inpatient (IN) | payer OTHER, MEDICAID ==
[2022-11-15 21:39] LABS: #Eosinphils 0.1 10x3/uL (0.0-0.5); #Monocytes 0.8 10x3/uL (0.0-1.1); %Basophils 0.5 % (0.0-2.0); %Eosinophils 1.3 % (0.0-6.0); %Lymphocytes 28.4 % (18.0-47.0); %Monocytes 14.3 % (0.0-10.0); Mean Corpuscular HGB CONC 33.8 g/dL (32.0-36.0); Mean Corpuscular Hemoglobin 28.2 pg (27.0-33.0); Mean Corpuscular Volume 83.5 fl (81.6-98.3); Mean Platelet Volume 12.1 fl (7.4-10.4); Platelet Count 202 10x3/uL (150-450); RBC Distribution Width 14.3 % (11.5-14.5); Red Blood Cell (RBC) Count 4.61 10x6/uL (3.90-5.03); White Blood Cell (WBC) Count 5.5 10x3/uL (3.5-10.5)
[2022-11-15 21:54] LABS: Anion Gap 13 mmol/L (10-20); BUN (Urea Nitrogen) 10 mg/dL (9.8-20.1); Calc. Creatinine Clearance 0 mL/min (70-130); Carbon Dioxide 28 mmol/L (23-31); Chloride 104 mmol/L (98-107); Potassium 3.7 mmol/L (3.5-5.1); Sodium 141 mmol/L (136-145)
[2022-11-15 21:55] LABS: ALT (SGPT) 28 U/L (8-55); AST (SGOT) 25 U/L (5-34); Albumin 3.7 g/dL (3.4-4.8); Alkaline Phosphatase 69 U/L (40-110); Bilirubin, Total 0.3 mg/dL (0.2-1.2); Estimated GFR 86; Globulin 3.4 g/dL (2.4-3.5); Glucose 137 mg/dL (83-110); Lipase 5 U/L (8-78); Protein, Total 7.1 g/dL (5.8-8.1)
[2022-11-15] MEDS ORDERED: Ondansetron PF 4 MG/2 ML Vial IVP PRN (23:36)
[2022-11-15] MEDS ORDERED: Ondansetron ODT 4 MG TAB PO PRN (23:36)
[2022-11-15] MEDS ORDERED: Aspirin 325 MG TAB ONE (23:36)
[2022-11-15] MEDS ORDERED: Acetaminophen 650 MG Suppository PR PRN (23:36)
[2022-11-15] MEDS ORDERED: Acetaminophen 325 MG TAB PO PRN (23:36)
[2022-11-16 03:43] LABS: Anion Gap 13 mmol/L (10-20); BUN (Urea Nitrogen) 9 mg/dL (9.8-20.1); Calc. Creatinine Clearance 0 mL/min (70-130); Calcium 9.5 mg/dL (7.8-10.44); Carbon Dioxide 30 mmol/L (23-31); Chloride 103 mmol/L (98-107); Estimated GFR 88; Glucose 124 mg/dL (83-110); Potassium 3.6 mmol/L (3.5-5.1); Sodium 142 mmol/L (136-145)
[2022-11-16 03:50] LABS: Troponin I 0.011 ng/mL (< 0.028)
[2022-11-16 03:59] LABS: %Lymphocytes 28.8 % (18.0-47.0); %Monocytes 13.3 % (0.0-10.0); Hemoglobin 12.5 g/dL (12.0-15.5); Mean Corpuscular HGB CONC 33.6 g/dL (32.0-36.0); Mean Corpuscular Hemoglobin 28.2 pg (27.0-33.0); Mean Platelet Volume 11.5 fl (7.4-10.4); Platelet Count 192 10x3/uL (150-450); RBC Distribution Width 14.2 % (11.5-14.5); Red Blood Cell (RBC) Count 4.43 10x6/uL (3.90-5.03); White Blood Cell (WBC) Count 5.9 10x3/uL (3.5-10.5)
[2022-11-16 04:00] LABS: #Eosinphils 0.1 10x3/uL (0.0-0.5); #Monocytes 0.8 10x3/uL (0.0-1.1); #Neutrophils 3.3 10x3/uL (1.5-8.4); %Basophils 0.5 % (0.0-2.0); %Eosinophils 1.2 % (0.0-6.0)
[2022-11-16 04:30] VITALS: BMI 26.3
[2022-11-16] MEDS ORDERED: Carvedilol 25 MG TAB PO SCH (10:00)
[2022-11-16] MEDS ORDERED: dilTIAZem CD 180 MG CAP PO SCH (10:00)
[2022-11-16] MEDS: Apixaban 2.5 MG TAB PO SCH ×2 (10:02→21:50)
[2022-11-16] MEDS ORDERED: Digoxin 0.125 MG TAB PO SCH (11:00)
[2022-11-16] MEDS ORDERED: Alogliptin 25 MG TAB PO SCH (11:00)
[2022-11-16] MEDS ORDERED: Ventolin HFA Inhaler 60 PUFF INHALER INH PRN (12:02)
[2022-11-16] MEDS ORDERED: [UNRECOGNIZED DRUG - OTHER] OP SCH (13:00)
[2022-11-16] MEDS ORDERED: PREDNISOLONE ACETATE OP SCH (13:00)
[2022-11-16] MEDS: prednisoLONE 1% Ophth Susp 5 ml Bottle EA EYE SCH ×3 (13:00→21:51)
[2022-11-16] MEDS: Carvedilol 25 MG TAB PO SCH (18:26)
[2022-11-16] MEDS: Mometasone/Formoterol 200/5 60 PUFF INH SCH (20:12)
[2022-11-16] MEDS ORDERED: Atorvastatin Calcium 40 MG TAB PO SCH (21:00)
[2022-11-16] MEDS ORDERED: Non-Formulary Medication 1 EACH (Fluticasone Propion/Salmeterol [Advair Diskus 250/50] 1 E INH SCH (21:00)
[2022-11-16] MEDS ORDERED: [UNRECOGNIZED DRUG - OTHER] EA EYE SCH (21:00)
[2022-11-16] MEDS ORDERED: Apixaban 2.5 MG TAB PO SCH (21:00)
[2022-11-16] MEDS ORDERED: Gabapentin 300 MG CAP PO SCH (21:00)
[2022-11-16] MEDS: Latanoprost 0.005% Ophth Soln 2.5 ml Bottle EA EYE SCH ×2 (21:51→22:26)
[2022-11-17 05:20] LABS: Anion Gap 13 mmol/L (10-20); BUN (Urea Nitrogen) 9 mg/dL (9.8-20.1); Calc. Creatinine Clearance 74 mL/min (70-130); Calcium 8.6 mg/dL (7.8-10.44); Carbon Dioxide 25 mmol/L (23-31); Chloride 106 mmol/L (98-107); Estimated GFR 88; Glucose 108 mg/dL (83-110); Potassium 3.4 mmol/L (3.5-5.1); Sodium 141 mmol/L (136-145)
[2022-11-17] MEDS ORDERED: Levothyroxine Sodium 125 MCG TAB PO SCH (06:00)
[2022-11-17] MEDS: Mometasone/Formoterol 200/5 60 PUFF INH SCH ×2 (07:05→19:05)
[2022-11-17] MEDS ORDERED: Potassium Chloride 20 MEQ TAB PO SCH ×2 (08:00→09:00)
[2022-11-17 08:10] LABS: Magnesium 1.4 mg/dL (1.6-2.6)
[2022-11-17] MEDS ORDERED: Calcium Carbonate 600 MG + Vit D TAB PO SCH (09:00)
[2022-11-17] MEDS ORDERED: Digoxin 0.125 MG TAB PO SCH (09:00)
[2022-11-17] MEDS ORDERED: dilTIAZem CD 180 MG CAP PO SCH (09:00)
[2022-11-17] MEDS ORDERED: Cholecalciferol 1,000 UNITS (25 MCG) TAB PO SCH (09:00)
[2022-11-17] MEDS ORDERED: Alogliptin 25 MG TAB PO SCH (09:00)
[2022-11-17] MEDS ORDERED: Furosemide 40 MG TAB PO SCH (09:00)
[2022-11-17] MEDS ORDERED: BROMFENAC SODIUM OP SCH (09:00)
[2022-11-17] MEDS ORDERED: Oxybutynin ER 5 MG TAB PO SCH (09:00)
[2022-11-17] MEDS ORDERED: Magnesium Sulfate/D5W 1 GM/100 ML BAG IVPB SCH (09:00)
[2022-11-17] MEDS ORDERED: Ferrous Sulfate 325 MG TAB PO SCH (09:00)
[2022-11-17] MEDS: prednisoLONE 1% Ophth Susp 5 ml Bottle EA EYE SCH ×3 (11:04→16:58)
[2022-11-17] MEDS: Apixaban 2.5 MG TAB PO SCH (11:09)
[2022-11-17] MEDS: Carvedilol 25 MG TAB PO SCH ×2 (11:10→16:58)
[2022-11-17 13:32] VITALS: TEMP 97.9
[2022-11-17 15:34] VITALS: BP 120/62
[2022-11-17 16:55] LABS: Digoxin 1.03 ng/mL (0.8-2.0)
== END 2022-11-17 20:00 | disposition home health service (06) | DRG 313 ==
LOC: CSHERS 19:24 → CSHTELE 23:36 → UNDOADMOB 11-16 02:00 → CSHTELE 11-16 02:00 → OBSVTOIN 11-17 10:56
PROVIDERS: ADMIT Student in an Organized Health Care Education/Training Program; ATTEND Family Medicine
DX: R07.89 Other chest pain (principal); I50.32 Chronic diastolic (congestive) heart failure; I25.10 Atherosclerotic heart disease of native coronary artery without angina pectoris; J44.9 Chronic obstructive pulmonary disease, unspecified; E11.51 Type 2 diabetes mellitus with diabetic peripheral angiopathy without gangrene; I48.0 Paroxysmal atrial fibrillation; E03.9 Hypothyroidism, unspecified; I11.0 Hypertensive heart disease with heart failure; Z79.01 Long term (current) use of anticoagulants; Z79.899 Other long term (current) drug therapy; Z95.5 Presence of coronary angioplasty implant and graft; Z86.73 Personal history of transient ischemic attack (TIA), and cerebral infarction without residual deficits; Z79.890 Hormone replacement therapy; Z88.8 Allergy status to other drugs, medicaments and biological substances; Z79.84 Long term (current) use of oral hypoglycemic drugs; E87.6 Hypokalemia
CPT/HCPCS: 36415; 36416; 71045; 80048; 80053; 80162; 83690; 83735; 84443; 84484; 85025; 93005; 94664; G0378; J3475

== ENCOUNTER 2023-01-31 14:30 | Outpatient (CLI) | payer OTHER, MEDICARE | END 2023-01-31 14:31 | disposition home or self-care (01) | LOC: CSHRAD 14:30 | PROVIDERS: ATTEND Internal Medicine Gastroenterology | DX: K59.00 Constipation, unspecified (principal); D64.9 Anemia, unspecified | CPT/HCPCS: 74019 ==

== ENCOUNTER 2023-02-26 21:33 | Emergency (ER) | payer OTHER ==
[2023-02-26 23:08] LABS: #Basophils 0.1 10x3/uL (0.0-0.2); #Eosinphils 0.1 10x3/uL (0.0-0.5); #Monocytes 0.8 10x3/uL (0.0-1.1); #Neutrophils 3.4 10x3/uL (1.5-8.4); %Basophils 0.8 % (0.0-2.0); %Eosinophils 2.1 % (0.0-6.0); %Lymphocytes 28.7 % (18.0-47.0); %Monocytes 13.5 % (0.0-10.0); %Neutrophils 54.1 % (40.0-75.0); Hematocrit 38.5 % (34.9-44.5); Hemoglobin 13.1 g/dL (12.0-15.5); Mean Corpuscular Hemoglobin 29.2 pg (27.0-33.0); Mean Corpuscular Volume 85.9 fl (81.6-98.3); Mean Platelet Volume 12.2 fl (7.4-10.4); Platelet Count 182 10x3/uL (150-450); RBC Distribution Width 13.6 % (11.5-14.5); Red Blood Cell (RBC) Count 4.48 10x6/uL (3.90-5.03); White Blood Cell (WBC) Count 6.2 10x3/uL (3.5-10.5)
[2023-02-26 23:15] LABS: Troponin I Less than 0.010 ng/mL (< 0.028)
[2023-02-26 23:16] LABS: ALT (SGPT) 26 U/L (8-55); AST (SGOT) 32 U/L (5-34); Albumin 3.7 g/dL (3.4-4.8); Alkaline Phosphatase 59 U/L (40-110); Anion Gap 15 mmol/L (10-20); BUN (Urea Nitrogen) 16 mg/dL (9.8-20.1); Bilirubin, Total 0.3 mg/dL (0.2-1.2); Calc. Creatinine Clearance 0 mL/min (70-130); Calcium 8.6 mg/dL (7.8-10.44); Carbon Dioxide 24 mmol/L (23-31); Chloride 104 mmol/L (98-107); Estimated GFR 65; Globulin 3.5 g/dL (2.4-3.5); Glucose 130 mg/dL (83-110); Potassium 3.8 mmol/L (3.5-5.1); Protein, Total 7.2 g/dL (5.8-8.1); Sodium 139 mmol/L (136-145)
[2023-02-27 00:33] LABS: Digoxin 0.51 ng/mL (0.8-2.0)
[2023-02-27 01:15] LABS: Bilirubin Neg (Negative); Blood, Urine Negative (Negative); Clarity Slightly Cloudy (Clear); Glucose, Urine (Dipstick) Normal (Negative); Ketone, Urine Negative (Negative); Leukocyte 25 (Negative); Nitrite Negative (Negative); Protein, Urine (Dipstick) 15 mg/dl (Neg-Trace); Urobilinogen Normal mg/dL (Less than 2)
[2023-02-27 01:58] LABS: CAUTI Indications for Culture Dysuria,urgency,freq; RBC/HPF None Seen HPF (0-3); WBC/HPF 0-3 HPF (0-3)
[2023-02-27 01:59] LABS: Bacteria/HPF 3+ HPF (None Seen); Squamous Epithelial 0-3 HPF (0-3)
== END 2023-02-27 02:40 | disposition home or self-care (01) ==
LOC: CSHERS 21:33
DX: R00.1 Bradycardia, unspecified (principal); I48.91 Unspecified atrial fibrillation; I11.0 Hypertensive heart disease with heart failure; I50.9 Heart failure, unspecified; J44.9 Chronic obstructive pulmonary disease, unspecified; E03.9 Hypothyroidism, unspecified; Z79.899 Other long term (current) drug therapy; Z79.01 Long term (current) use of anticoagulants
CPT/HCPCS: 80053; 80162; 81001; 83880; 84484; 85025; 93005

== ENCOUNTER 2023-07-05 | Observation (INO) | payer OTHER | END 2023-07-06 12:17 | disposition home or self-care (01) | PROVIDERS: ADMIT Family Medicine | PROC: B246ZZZ Ultrasonography of Right and Left Heart (ICD-10-PCS; principal; 2023-07-05) | DX: R07.2 Precordial pain (principal); I48.0 Paroxysmal atrial fibrillation; I25.10 Atherosclerotic heart disease of native coronary artery without angina pectoris; I10 Essential (primary) hypertension; E78.5 Hyperlipidemia, unspecified; I50.30 Unspecified diastolic (congestive) heart failure; I73.9 Peripheral vascular disease, unspecified; E11.9 Type 2 diabetes mellitus without complications; J44.9 Chronic obstructive pulmonary disease, unspecified; E03.9 Hypothyroidism, unspecified; Z90.710 Acquired absence of both cervix and uterus; Z79.890 Hormone replacement therapy; Z79.01 Long term (current) use of anticoagulants; Z79.899 Other long term (current) drug therapy; Z79.51 Long term (current) use of inhaled steroids; Z88.8 Allergy status to other drugs, medicaments and biological substances; Z95.5 Presence of coronary angioplasty implant and graft ==

== ENCOUNTER 2023-09-20 17:39 | Emergency (ER) | payer OTHER ==
[2023-09-20 18:48] LABS: #Basophils 0.05 10x3/uL (0.0-0.2); #Eosinphils 0.07 10x3/uL (0.0-0.5); #Monocytes 0.79 10x3/uL (0.0-1.1); #Neutrophils 3.77 10x3/uL (1.5-8.4); %Basophils 0.8 % (0.0-2.0); %Eosinophils 1.2 % (0.0-6.0); %Lymphocytes 20.8 % (18.0-47.0); %Monocytes 13.2 % (0.0-10.0); %Neutrophils 63.2 % (40.0-75.0); Hematocrit 37.1 % (34.9-44.5); Mean Corpuscular Hemoglobin 29.9 pg (27.0-33.0); Mean Corpuscular Volume 85.3 fL (81.6-98.3); Mean Platelet Volume 12.6 fL (7.4-10.4); Platelet Count 175 10x3/uL (150-450); RBC Distribution Width 13.4 % (11.5-14.5); Red Blood Cell (RBC) Count 4.35 10x6/uL (3.90-5.03)
[2023-09-20 19:05] LABS: ALT (SGPT) 28 U/L (8-55); AST (SGOT) 30 U/L (5-34); Albumin 3.5 g/dL (3.4-4.8); Alkaline Phosphatase 59 U/L (40-110); Anion Gap 13 mmol/L (10-20); BUN (Urea Nitrogen) 14 mg/dL (9.8-20.1); Bilirubin, Total 0.4 mg/dL (0.2-1.2); Calc. Creatinine Clearance 0 mL/min (70-130); Calcium 8.8 mg/dL (7.8-10.44); Carbon Dioxide 26 mmol/L (23-31); Chloride 100 mmol/L (98-107); Estimated GFR 65; Globulin 3.7 g/dL (2.4-3.5); Glucose 184 mg/dL (83-110); Potassium 3.9 mmol/L (3.5-5.1); Protein, Total 7.2 g/dL (5.8-8.1); Sodium 135 mmol/L (136-145)
[2023-09-20 19:38] LABS: INR-International Normal Ratio 1.2; PTT 30.6 sec (22.0-33.0); Prothrombin Time 12.7 sec (9.5-12.1)
[2023-09-20 19:40] LABS: Magnesium 1.5 mg/dL (1.6-2.6)
[2023-09-20] MEDS ORDERED: Acetaminophen 500 MG TAB ONE (19:52)
[2023-09-20] MEDS ORDERED: Magnesium 2 GM/50 ML BAG (IN WATER) ONE (19:53)
== END 2023-09-20 20:50 | disposition home or self-care (01) ==
LOC: CSHERS 17:39
DX: R55 Syncope and collapse (principal); E83.42 Hypomagnesemia; J44.9 Chronic obstructive pulmonary disease, unspecified; I11.0 Hypertensive heart disease with heart failure; I50.9 Heart failure, unspecified; E11.9 Type 2 diabetes mellitus without complications; I48.91 Unspecified atrial fibrillation
CPT/HCPCS: 36415; 70450; 71260; 72125; 74177; 80053; 83735; 83880; 84484; 85025; 85610; 85730; 93005; 96365; J3475

== ENCOUNTER 2023-10-15 08:35 | Emergency (ER) | payer OTHER ==
[2023-10-15 09:29] LABS: Hematocrit 39.4 % (34.9-44.5); Hemoglobin 13.7 g/dL (12.0-15.5); MDiff Complete? YES; Mean Corpuscular HGB CONC 34.8 g/dL (32.0-36.0); Mean Corpuscular Hemoglobin 29.6 pg (27.0-33.0); Mean Corpuscular Volume 85.1 fL (81.6-98.3); Mean Platelet Volume 11.7 fL (7.4-10.4); Platelet Adequacy Comment Appears Adequate; Platelet Count 193 10x3/uL (150-450); RBC Distribution Width 13.4 % (11.5-14.5); RBC Morph Comment Within Normal Limits; Red Blood Cell (RBC) Count 4.63 10x6/uL (3.90-5.03); White Blood Cell (WBC) Count 5.9 10x3/uL (3.5-10.5)
[2023-10-15] MEDS ORDERED: Nitroglycerin 2% Ointment 1 INCH/1 GM Packet ONE (09:35)
[2023-10-15] MEDS ORDERED: Aspirin Chewable 81 MG TAB ONE (09:36)
[2023-10-15 09:43] LABS: ALT (SGPT) 37 U/L (8-55); AST (SGOT) 35 U/L (5-34); Albumin 3.6 g/dL (3.4-4.8); Alkaline Phosphatase 61 U/L (40-110); Anion Gap 16 mmol/L (10-20); BUN (Urea Nitrogen) 13 mg/dL (9.8-20.1); Bilirubin, Total 0.5 mg/dL (0.2-1.2); Calc. Creatinine Clearance 0 mL/min (70-130); Calcium 8.7 mg/dL (7.8-10.44); Carbon Dioxide 22 mmol/L (23-31); Chloride 103 mmol/L (98-107); Estimated GFR 70; Globulin 3.8 g/dL (2.4-3.5); Glucose 170 mg/dL (83-110); Potassium 3.7 mmol/L (3.5-5.1); Protein, Total 7.4 g/dL (5.8-8.1); Sodium 137 mmol/L (136-145)
[2023-10-15 09:46] LABS: Troponin I Less than 0.010 ng/mL (< 0.028)
[2023-10-15 09:51] LABS: Band 3 % (5-11); Eosinophils 2 % (0-10); Lymphocytes 18 % (21-51); Monocytes 14 % (0-10); Neutrophil 61 % (42-75); Reactive Lymphocytes 1 % (0-10)
[2023-10-15 14:44] LABS: Digoxin Less than 0.19 ng/mL (0.8-2.0)
== END 2023-10-15 11:52 | disposition home or self-care (01) ==
LOC: CSHERS 08:35
DX: R07.89 Other chest pain (principal); J44.9 Chronic obstructive pulmonary disease, unspecified; E11.9 Type 2 diabetes mellitus without complications; Z86.718 Personal history of other venous thrombosis and embolism; I48.91 Unspecified atrial fibrillation; I11.0 Hypertensive heart disease with heart failure; I50.9 Heart failure, unspecified; Z55.6 Problems related to health literacy; E03.9 Hypothyroidism, unspecified
CPT/HCPCS: 36415; 71045; 80053; 80162; 83880; 84484; 85025; 93005

== ENCOUNTER 2023-10-29 20:23 | Emergency (ER) | payer OTHER ==
[2023-10-29 21:06] LABS: #Basophils 0.06 10x3/uL (0.0-0.2); #Eosinphils 0.09 10x3/uL (0.0-0.5); #Monocytes 0.66 10x3/uL (0.0-1.1); #Neutrophils 4.91 10x3/uL (1.5-8.4); %Basophils 0.9 % (0.0-2.0); %Eosinophils 1.3 % (0.0-6.0); %Lymphocytes 17.3 % (18.0-47.0); %Monocytes 9.5 % (0.0-10.0); %Neutrophils 70.3 % (40.0-75.0); Hematocrit 39.1 % (34.9-44.5); Hemoglobin 13.5 g/dL (12.0-15.5); Mean Corpuscular HGB CONC 34.5 g/dL (32.0-36.0); Mean Corpuscular Hemoglobin 29.4 pg (27.0-33.0); Mean Corpuscular Volume 85.2 fL (81.6-98.3); Mean Platelet Volume 12.1 fL (7.4-10.4); Platelet Count 187 10x3/uL (150-450); RBC Distribution Width 13.1 % (11.5-14.5); Red Blood Cell (RBC) Count 4.59 10x6/uL (3.90-5.03)
[2023-10-29 21:13] LABS: ALT (SGPT) 28 U/L (8-55); AST (SGOT) 28 U/L (5-34); Albumin 3.5 g/dL (3.4-4.8); Alkaline Phosphatase 56 U/L (40-110); Anion Gap 14 mmol/L (10-20); BUN (Urea Nitrogen) 13 mg/dL (9.8-20.1); Bilirubin, Total 0.4 mg/dL (0.2-1.2); Calc. Creatinine Clearance 0 mL/min (70-130); Calcium 8.9 mg/dL (7.8-10.44); Carbon Dioxide 26 mmol/L (23-31); Chloride 99 mmol/L (98-107); Estimated GFR 65; Glucose 236 mg/dL (83-110); Potassium 3.5 mmol/L (3.5-5.1); Protein, Total 7.5 g/dL (5.8-8.1); Sodium 135 mmol/L (136-145)
[2023-10-29 21:17] LABS: Troponin I Less than 0.010 ng/mL (< 0.028)
[2023-10-30 00:40] LABS: Bilirubin Neg (Negative); Blood, Urine Negative (Negative); Clarity Clear (Clear); Glucose, Urine (Dipstick) 250 mg/dL (Negative); Ketone, Urine Negative (Negative); Leukocyte 25 (Negative); Nitrite Negative (Negative); Protein, Urine (Dipstick) Negative (Neg-Trace); Urobilinogen Normal mg/dL (Less than 2)
[2023-10-30 00:44] LABS: Bacteria/HPF None Seen HPF (None Seen); CAUTI Indications for Culture Alt mental st,lethar; RBC/HPF None Seen HPF (0-3); Squamous Epithelial 0-3 HPF (0-3); Urine Culture Reflex No No; WBC/HPF 0-3 HPF (0-3)
== END 2023-10-30 01:50 | disposition home or self-care (01) ==
LOC: CSHERS 20:23
DX: R53.1 Weakness (principal); D68.318 Other hemorrhagic disorder due to intrinsic circulating anticoagulants, antibodies, or inhibitors; E11.9 Type 2 diabetes mellitus without complications; I50.9 Heart failure, unspecified; I11.0 Hypertensive heart disease with heart failure; Z86.73 Personal history of transient ischemic attack (TIA), and cerebral infarction without residual deficits
CPT/HCPCS: 71045; 80053; 81001; 83880; 84484; 85025; 93005

== ENCOUNTER 2024-02-07 23:07 | Observation (INO) | payer OTHER, MEDICAID ==
[2024-02-07] MEDS ORDERED: Acetaminophen 500 MG TAB ONE (23:16)
[2024-02-07 23:59] LABS: #Basophils 0.02 10x3/uL (0.0-0.2); #Eosinophils 0.07 10x3/uL (0.0-0.5); #Monocytes 0.87 10x3/uL (0.0-1.1); %Basophils 0.3 % (0.0-2.0); %Eosinophils 1.1 % (0.0-6.0); %Lymphocytes 26.4 % (18.0-47.0); %Monocytes 14.2 % (0.0-10.0); %Neutrophils 57.3 % (40.0-75.0); Hemoglobin 13.4 g/dL (12.0-15.5); Mean Corpuscular HGB CONC 33.5 g/dL (32.0-36.0); Mean Corpuscular Hemoglobin 28.4 pg (27.0-33.0); Mean Corpuscular Volume 84.7 fL (81.6-98.3); Mean Platelet Volume 11.9 fL (7.4-10.4); Platelet Count 191 10x3/uL (150-450); RBC Distribution Width 12.8 % (11.5-14.5); Red Blood Cell (RBC) Count 4.72 10x6/uL (3.90-5.03); White Blood Cell (WBC) Count 6.1 10x3/uL (3.5-10.5)
[2024-02-08 00:04] LABS: INR-International Normal Ratio 1.2; Prothrombin Time 12.9 sec (9.5-12.1)
[2024-02-08 00:14] LABS: ALT (SGPT) 46 U/L (8-55); AST (SGOT) 33 U/L (5-34); Albumin 3.7 g/dL (3.4-4.8); Alkaline Phosphatase 77 U/L (40-110); Anion Gap 18 mmol/L (10-20); BUN (Urea Nitrogen) 16 mg/dL (9.8-20.1); Bilirubin, Total 0.5 mg/dL (0.2-1.2); Calc. Creatinine Clearance 0 mL/min (70-130); Calcium 9.3 mg/dL (7.8-10.44); Carbon Dioxide 24 mmol/L (23-31); Chloride 99 mmol/L (98-107); Estimated GFR 60; Glucose 185 mg/dL (83-110); Lipase 15 U/L (8-78); Potassium 4.4 mmol/L (3.5-5.1); Protein, Total 7.7 g/dL (5.8-8.1); Sodium 137 mmol/L (136-145)
[2024-02-08 00:20] LABS: Troponin I Less than 0.010 ng/mL (< 0.028)
[2024-02-08] MEDS ORDERED: traMADol HCl 50 MG TAB PO PRN (00:54)
[2024-02-08] MEDS ORDERED: Calcium Carbonate 500 MG ChewTAB PO PRN (00:54)
[2024-02-08] MEDS ORDERED: Glucagon 1 MG/ML KIT IM PRN (00:54)
[2024-02-08] MEDS ORDERED: Dextrose 50% Abboject 50 ML SYRINGE SLOW IVP PRN (00:54)
[2024-02-08] MEDS ORDERED: Dextrose 5% in Water 1,000 ML IV PRN (00:54)
[2024-02-08] MEDS ORDERED: Senokot S 8.6-50 MG TAB PO PRN (00:54)
[2024-02-08] MEDS ORDERED: Ondansetron PF 4 MG/2 ML Vial IVP PRN (00:54)
[2024-02-08] MEDS ORDERED: Nitroglycerin 0.4 MG TAB (25 Tab Bottle) SL PRN (00:58)
[2024-02-08] MEDS ORDERED: Ventolin HFA Inhaler 60 PUFF INHALER INH PRN (02:22)
[2024-02-08] MEDS: Nitroglycerin 0.4 MG TAB (25 Tab Bottle) SL SCH (02:26)
[2024-02-08 02:31] VITALS: BMI 27.6
[2024-02-08 04:03] LABS: Troponin I Less than 0.010 ng/mL (< 0.028)
[2024-02-08] MEDS: FLU (Fluad Triv) TS24-25 (65UP)/MF59C/PF 45 MCG/0.5 ML Syringe IM ONE (05:09)
[2024-02-08] MEDS: Acetaminophen 325 MG TAB PO SCH (05:22)
[2024-02-08] MEDS: Insulin Lispro 100 UNIT/ML 10 ML VIAL SC PRN (05:22)
[2024-02-08] MEDS: Levothyroxine Sodium 25 MCG TAB PO SCH (05:22)
[2024-02-08 06:18] LABS: Bilirubin Neg (Negative); Blood, Urine Negative (Negative); Glucose, Urine (Dipstick) Normal (Negative); Ketone, Urine Negative (Negative); Leukocyte 100 (Negative); Nitrite Negative (Negative); Protein, Urine (Dipstick) Negative (Neg-Trace); Urobilinogen Normal mg/dL (Less than 2)
[2024-02-08 06:52] LABS: Clarity Clear (Clear)
[2024-02-08 06:54] LABS: Bacteria/HPF 1+ HPF (None Seen); RBC/HPF 0-3 HPF (0-3); Squamous Epithelial 0-3 HPF (0-3)
[2024-02-08 06:55] LABS: Yeast-Budding Rare HPF (None Seen)
[2024-02-08] MEDS: Mometasone 200 MCG/Formoterol 5 MCG 60 PUFF INHALER INH SCH (06:58)
[2024-02-08 09:00] LABS: Troponin I Less than 0.010 ng/mL (< 0.028)
[2024-02-08] MEDS: Ranolazine ER 500 MG TAB PO SCH (09:13)
[2024-02-08] MEDS: Alogliptin 6.25 MG TAB PO SCH (09:14)
[2024-02-08] MEDS: Spironolactone 25 MG TAB PO SCH (09:14)
[2024-02-08] MEDS: Apixaban 2.5 MG TAB PO SCH (09:14)
[2024-02-08] MEDS: Mirabegron ER 25 MG ER.TAB PO SCH (09:14)
[2024-02-08] MEDS: Furosemide 40 MG TAB PO SCH (09:14)
[2024-02-08] MEDS: Pantoprazole DR 40 MG TAB PO SCH (09:15)
[2024-02-08] MEDS: Isosorbide Mononitrate 30 MG ER.TAB PO SCH (09:15)
[2024-02-08] MEDS: Carvedilol 25 MG TAB PO SCH (09:15)
[2024-02-08] MEDS: Cholecalciferol 1,000 UNITS (25 MCG) TAB PO SCH (09:15)
[2024-02-08 14:23] VITALS: BP 135/66; TEMP 98.1
[2024-02-08] MEDS ORDERED: Gabapentin 300 MG CAP PO SCH (21:00)
[2024-02-08] MEDS ORDERED: Atorvastatin Calcium 40 MG TAB PO SCH (21:00)
== END 2024-02-08 15:02 | disposition home or self-care (01) ==
LOC: CSHERS 23:07 → CSHTELE 02-08 00:40
PROVIDERS: ADMIT Student in an Organized Health Care Education/Training Program; ATTEND Family Medicine
DX: R07.89 Other chest pain (principal); I11.0 Hypertensive heart disease with heart failure; I50.40 Unspecified combined systolic (congestive) and diastolic (congestive) heart failure; I25.10 Atherosclerotic heart disease of native coronary artery without angina pectoris; I73.9 Peripheral vascular disease, unspecified; I48.0 Paroxysmal atrial fibrillation; I48.92 Unspecified atrial flutter; E11.9 Type 2 diabetes mellitus without complications; E03.9 Hypothyroidism, unspecified; E66.9 Obesity, unspecified; E78.5 Hyperlipidemia, unspecified; K92.2 Gastrointestinal hemorrhage, unspecified; K21.9 Gastro-esophageal reflux disease without esophagitis; J44.9 Chronic obstructive pulmonary disease, unspecified; D50.9 Iron deficiency anemia, unspecified; Z68.27 Body mass index [BMI] 27.0-27.9, adult; Z86.73 Personal history of transient ischemic attack (TIA), and cerebral infarction without residual deficits; Z87.891 Personal history of nicotine dependence; Z95.5 Presence of coronary angioplasty implant and graft; Z90.710 Acquired absence of both cervix and uterus; Z88.8 Allergy status to other drugs, medicaments and biological substances; Z79.890 Hormone replacement therapy; Z79.01 Long term (current) use of anticoagulants; Z79.51 Long term (current) use of inhaled steroids; Z79.899 Other long term (current) drug therapy
CPT/HCPCS: 71046; 80053; 81001; 82962; 83690; 83880; 84439; 84443; 84484 ×3; 85025; 85610; 87428; 93005; 94640; 94760; 94762; 99285; G0378 ×2; J1815; 36415; 36416; 93010

== ENCOUNTER 2024-03-18 11:50 | Outpatient (CLI) | payer OTHER, MEDICAID | END 2024-03-18 11:51 | disposition home or self-care (01) | LOC: CSHMAMMO 11:50 | PROVIDERS: ATTEND Physician Assistant | DX: Z78.0 Asymptomatic menopausal state (principal) | CPT/HCPCS: 77080 ==

== ENCOUNTER 2024-05-19 12:20 | Emergency (ER) | payer OTHER, MEDICAID ==
[~2024-05-19 12:20] MED LIST: Iopamidol 300 61% 100 ML VIAL FS ONE
[2024-05-19 12:58] LABS: #Basophils 0.03 10x3/uL (0.0-0.2); #Eosinophils 0.05 10x3/uL (0.0-0.5); #Monocytes 0.86 10x3/uL (0.0-1.1); #Neutrophils 5.28 10x3/uL (1.5-8.4); %Basophils 0.4 % (0.0-2.0); %Eosinophils 0.7 % (0.0-6.0); %Lymphocytes 15.5 % (18.0-47.0); %Monocytes 11.6 % (0.0-10.0); %Neutrophils 71.1 % (40.0-75.0); Hematocrit 37.1 % (34.9-44.5); Hemoglobin 12.2 g/dL (12.0-15.5); Mean Corpuscular HGB CONC 32.9 g/dL (32.0-36.0); Mean Corpuscular Hemoglobin 27.7 pg (27.0-33.0); Mean Corpuscular Volume 84.3 fL (81.6-98.3); Mean Platelet Volume 11.9 fL (7.4-10.4); Platelet Count 212 10x3/uL (150-450); RBC Distribution Width 13.7 % (11.5-14.5); White Blood Cell (WBC) Count 7.42 10x3/uL (3.5-10.5)
[2024-05-19 13:15] LABS: INR-International Normal Ratio 1.2; PTT 28.6 sec (22.0-33.0); Prothrombin Time 12.4 sec (9.5-12.1)
[2024-05-19 13:21] LABS: ALT (SGPT) 24 U/L (Less than 34); AST (SGOT) 25 U/L (11-34); Albumin 3.5 g/dL (3.1-4.5); Alkaline Phosphatase 59 U/L (40-110); Anion Gap 14 mmol/L (10-20); BUN (Urea Nitrogen) 13 mg/dL (9.8-20.1); Bilirubin, Total 0.5 mg/dL (0.3-1.2); Calc. Creatinine Clearance 0 mL/min (70-130); Calcium 9.3 mg/dL (7.8-10.44); Carbon Dioxide 23 mmol/L (23-31); Chloride 104 mmol/L (98-107); Estimated GFR 53; Globulin 3.8 g/dL (2.4-3.5); Glucose 184 mg/dL (83-110); Lipase 10 U/L (8-78); Potassium 4.4 mmol/L (3.5-5.1); Protein, Total 7.3 g/dL (5.8-8.1); Sodium 137 mmol/L (136-145)
[2024-05-19 13:27] LABS: Troponin I 0.012 ng/mL (< 0.028)
== END 2024-05-19 16:43 | disposition home or self-care (01) ==
LOC: CSHERS 12:20
DX: R07.9 Chest pain, unspecified (principal); I25.10 Atherosclerotic heart disease of native coronary artery without angina pectoris; I48.91 Unspecified atrial fibrillation; I11.0 Hypertensive heart disease with heart failure; I50.9 Heart failure, unspecified; J44.9 Chronic obstructive pulmonary disease, unspecified; E11.51 Type 2 diabetes mellitus with diabetic peripheral angiopathy without gangrene
CPT/HCPCS: 36415; 71045; 74177; 80053; 83690; 84484; 85025; 85610; 85730; 86850; 86900; 86901; 93005; Q9967

== ENCOUNTER 2024-10-18 11:45 | Emergency (ER) | payer OTHER, MEDICAID ==
[~2024-10-18 11:45] MED LIST changes: -Iopamidol 300 61% 100 ML VIAL FS ONE; +Iopamidol 370 76% 100 ML VIAL ONE
[2024-10-18 13:22] LABS: #Basophils 0.03 10x3/uL (0.0-0.2); #Eosinophils Less than 0.03 10x3/uL (0.0-0.5); #Monocytes 1.13 10x3/uL (0.0-1.1); #Neutrophils 13.78 10x3/uL (1.5-8.4); %Basophils 0.2 % (0.0-2.0); %Eosinophils 0.1 % (0.0-6.0); %Lymphocytes 3.3 % (18.0-47.0); %Monocytes 7.2 % (0.0-10.0); %Neutrophils 88.1 % (40.0-75.0); Hematocrit 29.8 % (34.9-44.5); Hemoglobin 9.8 g/dL (12.0-15.5); Mean Corpuscular HGB CONC 32.9 g/dL (32.0-36.0); Mean Corpuscular Hemoglobin 27.4 pg (27.0-33.0); Mean Corpuscular Volume 83.2 fL (81.6-98.3); Mean Platelet Volume 11.6 fL (7.4-10.4); Platelet Count 258 10x3/uL (150-450); RBC Distribution Width 13.2 % (11.5-14.5); Red Blood Cell (RBC) Count 3.58 10x6/uL (3.90-5.03); White Blood Cell (WBC) Count 15.63 10x3/uL (3.5-10.5)
[2024-10-18 13:36] LABS: ALT (SGPT) 93 U/L (Less than 34); AST (SGOT) 79 U/L (11-34); Albumin 2.6 g/dL (3.1-4.5); Alkaline Phosphatase 74 U/L (40-110); Anion Gap 18 mmol/L (10-20); BUN (Urea Nitrogen) 28 mg/dL (9.8-20.1); Bilirubin, Total 1.3 mg/dL (0.3-1.2); Calc. Creatinine Clearance 0 mL/min (70-130); Calcium 8.6 mg/dL (7.8-10.44); Carbon Dioxide 24 mmol/L (23-31); Chloride 96 mmol/L (98-107); Estimated GFR 54; Glucose 246 mg/dL (83-110); Potassium 4.8 mmol/L (3.5-5.1); Protein, Total 7.6 g/dL (5.8-8.1); Sodium 133 mmol/L (136-145)
[2024-10-18] MEDS ORDERED: Furosemide 40 MG (4 mL) VIAL ONE (14:12)
[2024-10-18] MEDS ORDERED: Heparin 25,000 units/D5W 500 ML ONE (15:07)
[2024-10-18] MEDS ORDERED: Heparin 10,000 UNITS/ 10 ML VIAL ONE (15:10)
[2024-10-18 16:32] LABS: INR-International Normal Ratio 1.3; PTT 31.9 sec (22.0-33.0); Prothrombin Time 14.2 sec (9.5-12.1)
[2024-10-18 17:00] LABS: Troponin I 2.403 ng/mL (< 0.028)
== END 2024-10-18 16:37 | disposition short-term general hospital (02) ==
LOC: CSHERS 11:45
DX: R07.9 Chest pain, unspecified (principal); I11.0 Hypertensive heart disease with heart failure; I50.9 Heart failure, unspecified; J44.9 Chronic obstructive pulmonary disease, unspecified; E11.9 Type 2 diabetes mellitus without complications; I48.91 Unspecified atrial fibrillation
CPT/HCPCS: 71045; 71275; 74174; 80053; 83880; 84484 ×2; 85025; 85610; 85730; 93005; 94760; J1644 ×2; J1940; Q9967; 96374

== ENCOUNTER 2024-11-14 13:26 | Outpatient (CLI) | payer OTHER, MEDICAID | END 2024-11-14 13:27 | disposition home or self-care (01) | LOC: CSHRAD 13:26 | PROVIDERS: ATTEND Physician Assistant | DX: M25.552 Pain in left hip (principal) ==